=== PATIENT | female | born 1975 | race Two or more races ===

== ENCOUNTER 2020-04-22 11:28 | Emergency (ER) | payer OTHER, SELFPAY ==
[2020-04-22 11:37] VITALS: BP 137/83; PULSE 74; RESP 17; TEMP 37.2; O2SAT 96; BMI 35.2
--- NOTE | 2020-04-22 11:55 | XR_ITS ---
EXAMINATION: XR FOREARM, RIGHT CLINICAL INFORMATION: Pain and swelling COMPARISON: None TECHNIQUE: AP and lateral views of the right forearm were obtained. FINDINGS: There is no fracture or dislocation or destructive process. The bony mineralization appears normal. There is no periostitis. Lateral view shows no elbow capsular effusion. The elbow joint and carpus shows no no narrowing or erosive change. There is no gas tracking in the soft tissues. XR/XR forearm RT 2V IMPRESSION: Normal right forearm.
--- NOTE | 2020-04-22 11:57 | PC.NURSE ---
20 ML'S SEROUS SANGIOUNUS FLUID DRAINED BY N.P TO THE RIGHT LOWER ARM CYST.
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
[2020-04-22 12:10] LABS: MANUAL DIFF FLAG NO
[2020-04-22] MEDS: oxyCODONE HCl Immed Release 5 MG TABLET PO (12:13)
[2020-04-22] MEDS: Amoxicillin/Potassium Clav 875 MG TABLET PO (12:14)
[2020-04-22 12:22] LABS: Basophils Absolute Auto 0.1 X10*3/uL (0.0-0.2); Basophils Percent Auto 0.8 % (0-2); Eosinophils Absolute Auto 0.1 X10*3/uL (0.0-0.4); Eosinophils Percent Auto 1.8 % (0-4); Hematocrit 39.7 % (37-47); Hemoglobin 12.1 g/dl (12.0-16.0); Imm Gran Abs Auto 0.02 X10*3/uL (0.00-0.03); Imm Gran Pct Auto 0.3 % (0.0-0.4); Lymphocytes Percent Auto 25.9 % (20-40); Mean Corpuscular HGB Conc 30.5 g/dl (31.0-35.0); Mean Corpuscular Volume 78.8 fL (80-98); Mean Platelet Volume 8.9 fL (9.4-12.3); Monocytes Absolute Auto 0.5 X10*3/uL (0.1-1.2); Monocytes Percent Auto 6.4 % (2-11); Neutrophils Absolute Auto 5.1 X10*3/uL (2.0-8.3); Neutrophils Percent Auto 64.8 % (45-73); Platelet Count 420 X10*3/uL (160-400); Red Blood Count 5.04 X10*6/uL (4.20-5.50); Red Cell Distribution Width 19.1 % (11.0-16.0); White Blood Count 7.8 X10*3/uL (4.8-10.8)
[2020-04-22 12:44] LABS: Alanine Aminotransferase 25 U/L (0-31); Albumin Level 4.4 g/dL (3.5-5.0); Alkaline Phosphatase 88 U/L (39-117); Amylase 25 U/L (28-100); Anion Gap 12 (12-20); Aspartate Amino Transferase 22 U/L (5-31); Bilirubin Direct < 0.2 mg/dL (0.0-0.5); Bilirubin Total 0.3 mg/dL (0.0-1.0); Blood Urea Nitrogen 10 mg/dL (9-16); Calcium 9.1 mg/dL (8.4-10.2); Carbon Dioxide 24 mmol/L (22-29); Chloride 105 mmol/L (96-108); Creatinine Clr Calc Pharmacy 111.4; Estimated Glomerular Filt Rate > 60; Glucose Random 88 mg/dL (60-115); Lipase 12 U/L (8-78); Potassium 4.3 mmol/l (3.3-5.1); Sodium 137 mmol/L (135-145); Total Protein 7.8 g/dL (6.5-8.0)
[2020-04-22 12:45] LABS: Appearance Urine TURBID; Glucose Urine UA NEG (NEG); PH 5.5 (5.0-8.0); Urine Blood 3+ (NEG)
[2020-04-22 12:46] LABS: Leukocyte Esterase Urine NEG (NEG); Nitrite Urine NEG (NEG); Specific Gravity - Urine > 1.030 (1.005-1.025); Urine Ketones NEG (NEG); Urine Protein 2+ MG/DL (NEG-TRACE)
[2020-04-22 12:47] LABS: Color Urine RED; UPreg QC Valid YES; Urine Pregnancy NEGATIVE (NEGATIVE)
[2020-04-22 13:16] LABS: RBC Urine TNTC /HPF (0); Squamous Epithelial Cell Urine 1+ /LPF
[2020-04-23 04:36] LABS: HBS Num1 14.99 mIU/mL (0-7.99); HBc Num1 0.06 S/CO (0.00-0.79); HBsAGNum1 0.19 S/CO (0.00-0.99); HIV AB/AG Nonreactive (Nonreactive); HIV Num 1 0.06 S/CO (0.00-0.99); Hepatitis B Core Antibody Nonreactive (Nonreactive); Hepatitis B Surface Antigen Negative (Negative); ~Hepatitis B Surface Antibody REACTIVE (Nonreactive)
[2020-04-23 04:42] LABS: ~HepC Num1 0.11 S/CO (0.00-0.79); ~Hepatitis C Antibody Nonreactive (Nonreactive)
== END 2020-04-22 13:34 | disposition home or self-care (01) ==
PROVIDERS: Nurse Practitioner Primary Care; Emergency Provider Emergency Medicine; PCP Internal Medicine
DX: L02.413 Cutaneous abscess of right upper limb (principal); S40.811A Abrasion of right upper arm, initial encounter; M79.601 Pain in right arm
CPT/HCPCS: 10060; 36415; 73090; 80048; 80076; 81001; 81025; 82150; 83690; 85025; 86704; 86706; 86803; 87340; 87389; 90471; 90715; 99283; 99284

== ENCOUNTER 2020-04-23 19:41 | Emergency (ER) | payer OTHER, SELFPAY ==
[2020-04-23 19:55] VITALS: BP 140/97; PULSE 80; RESP 16; TEMP 36.9; O2SAT 98; BMI 35.2
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
[2020-04-23] MEDS: Lidocaine HCl 1 % MPF 5 ML VIAL SUBCUT (21:01)
== END 2020-04-23 21:32 | disposition home or self-care (01) ==
PROVIDERS: Emergency Provider Emergency Medicine; PCP Internal Medicine
DX: L02.413 Cutaneous abscess of right upper limb (principal)
CPT/HCPCS: 10060; 99284

== ENCOUNTER 2020-04-25 17:12 | Emergency (ER) | payer OTHER, SELFPAY ==
[2020-04-25 17:15] VITALS: BP 124/86; PULSE 66; RESP 19; TEMP 37; O2SAT 99; BMI 35.2
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
== END 2020-04-25 19:22 | disposition home or self-care (01) ==
PROVIDERS: Emergency Provider Emergency Medicine; PCP Internal Medicine
DX: Z48.00 Encounter for change or removal of nonsurgical wound dressing (principal); M79.631 Pain in right forearm; Z79.899 Other long term (current) drug therapy
CPT/HCPCS: 99284

== ENCOUNTER 2020-04-27 17:00 | Emergency (ER) | payer OTHER, SELFPAY ==
[2020-04-27 17:26] VITALS: BP 128/72; PULSE 89; RESP 16; TEMP 36.9; O2SAT 100; BMI 35.2
--- NOTE | 2020-04-27 17:45 | ED.RECABL ---
HPI - Recheck/Abnormal Lab/Rx General Chief Complaint: Recheck/Abnormal Lab/Rx Stated Complaint: wound check Time Seen by Provider: 04/27/20 17:32 Source: patient Mode of arrival: ambulatory Limitations: no limitations History of Present Illness HPI narrative: hears instructed for right volar forearm abscess check/packing removal. Offers no complaints. States she has been taking her antibiotics. Her swelling has significantly reduced essentially no swelling. Pain minimal only itchy on the site of the tape. No redness. No pain with movement of the hand. MD complaint: wound re-check ( / packing removal) Initial visit (ago): day(s) Initial visit for: abscess Symptoms since prior visit: improved Context: planned re-check Associated symptoms: none Treatments prior to arrival: heat therapy and dressings Related Data Previous Rx's Medication Instructions Recorded amoxicillin-pot clavulanate 1 tab PO Q12H 10 Days #20 tab 04/22/20 [Augmentin] cephalexin [Keflex] 500 mg PO Q8H 7 Days #21 cap 04/23/20 doxycycline monohydrate 100 mg PO BID 10 Days #20 cap 04/23/20 oxycodone 5 mg PO BID PRN #10 tab 04/23/20 Allergies Allergy/AdvReac Type Severity Reaction Status Date / Time SEAFOOD Allergy Unknown UNKNOWN Uncoded 04/27/20 17:18 Review of Systems Review of Systems: Constitutional: No Weight loss, No Fever, No Chills, No Night Sweats, No Fatigue, No Malaise ENT/Mouth: No Hearing loss, No Ear Pain, No Nasal Congestion, No Sinus Pain, No Hoarseness, No sore throat, No Rhinorrhea, No Swallowing Difficulty Eyes: No Eye Pain, No Swelling, No Redness, No Foreign Body, No Discharge, No Vision Changes Cardiovascular: No Chest Pain, No SOB, No Dyspnea on Exertion, No Orthopnea, No Edema, No Palpitations Respiratory: No Cough, No Sputum, No Wheezing, No Smoke Exposure, No Dyspnea Musculoskeletal: No joint pain, No Myalgias, No Joint Swelling Skin: No Skin Lesions, No rash Heme/Lymph: No Bruising, No Bleeding,No Lymphadenopathy Endocrine: No Polyuria, No Polydipsia, No Temperature Intolerance Yes all other systems are reviewed and are negative [facility] Past Medical History Attestation statement: The following information was validated with the patient. Medical History (Updated 04/27/20 @ 17:50 by Miguel Ángel Christensen NP) Asthma Social History Social History Smoking Status: Never smoker Advance Directives: No Advance Directives Information Provided: Yes Physical Exam Vital Signs: Vital Signs: Vital Signs Temp Pulse Resp BP Pulse Ox 04/27/20 17:26 98.4 F 89 16 128/72 100 Body Mass Index 35.2 Packing removed no further induration /expressible discharge. No need for further packing. Site appears to be healing well as noted below. Full range of motion. She is on Keflex/doxycycline she will complete the course of this. No need for further return to emergency room without complications will go with her primary care doctor. She verbalized standing/ agreeable plan. Discharge Plan Discharge Clinical Impression: Encounter for wound re-check Patient Disposition: Home, Self-Care Instructions: Abscess Follow-up (ED) Additional Instructions: the packing from the right forearm was removed Site appears to be healing well no further expressible discharge Home care as instructed Keep site clean and dry may wash with soap and water Take your antibiotic as prescribed Return if any concerns or symptoms otherwise follow up with primary care doctor in the next 3-7 days Thank you Prescriptions: No Action amoxicillin-pot clavulanate [Augmentin] 875-125 mg tablet 1 tab PO Q12H 10 Days Qty: 20 RF: 0 doxycycline monohydrate 100 mg capsule 100 mg PO BID 10 Days Qty: 20 RF: 0 cephalexin [Keflex] 500 mg capsule 500 mg PO Q8H 7 Days Qty: 21 RF: 0 oxycodone 5 mg tablet 5 mg PO BID PRN (Reason: pain) Qty: 10 RF: 0 Referrals: Xiomara Durham MD [Primary Care Provider] - 5 days Interventions: ED Discharge Assessment Last Done: 04/27/20 18:02 Discharge Date/Time: 04/27/20 18:03
[2020-04-27] MEDS: Ibuprofen 600 MG TABLET PO (18:01)
== END 2020-04-27 18:03 | disposition home or self-care (01) ==
PROVIDERS: Emergency Provider Internal Medicine; PCP Internal Medicine
DX: L02.413 Cutaneous abscess of right upper limb (principal); M79.631 Pain in right forearm; Z48.00 Encounter for change or removal of nonsurgical wound dressing; Z79.899 Other long term (current) drug therapy
CPT/HCPCS: 99283

== ENCOUNTER 2020-05-29 19:22 | Emergency (ER) | payer OTHER, SELFPAY ==
--- NOTE | 2020-05-29 20:05 | ECG_ITS ---
Test Reason : CHEST PAIN SOB Blood Pressure : / mmHG Vent. Rate : 083 BPM Atrial Rate : 083 BPM P-R Int : 140 ms QRS Dur : 092 ms QT Int : 396 ms P-R-T Axes : 045 -04 022 degrees QTc Int : 465 ms Normal sinus rhythm Left axis deviation Otherwise normal ECG When compared with ECG of 02-MAY-2019 16:23, No significant change was found Referred By: Generic ED Physician Electronically Signed By:CECILE MALOLY MD
--- NOTE | 2020-05-29 20:05 | XR_ITS ---
EXAMINATION: XR CHEST CLINICAL INFORMATION: Chest pain COMPARISON: Prior chest October 2016 TECHNIQUE: Frontal view of the chest was obtained. FINDINGS: No significant abnormality is noted involving the heart, lungs, mediastinum, bony thorax or soft tissues. XR/XR chest 1V IMPRESSION: Unremarkable examination.
[2020-05-29 20:06] VITALS: BP 133/91; PULSE 80; RESP 20; TEMP 37.6; O2SAT 99; BMI 35.7
[2020-05-29 20:12] VITALS: PULSE 79
[2020-05-29 20:23] LABS: Basophils Absolute Auto 0.1 X10*3/uL (0.0-0.2); Basophils Percent Auto 0.6 % (0-2); Eosinophils Absolute Auto 0.2 X10*3/uL (0.0-0.4); Eosinophils Percent Auto 1.6 % (0-4); Hematocrit 35.7 % (37-47); Hemoglobin 11.2 g/dl (12.0-16.0); Imm Gran Abs Auto 0.03 X10*3/uL (0.00-0.03); Imm Gran Pct Auto 0.3 % (0.0-0.4); Lymphocytes Absolute Auto 2.7 X10*3/uL (1.2-4.9); Lymphocytes Percent Auto 29.1 % (20-40); MANUAL DIFF FLAG NO; Mean Corpuscular HGB Conc 31.4 g/dl (31.0-35.0); Mean Corpuscular Hemoglobin 24.1 pg (27.0-33.0); Mean Corpuscular Volume 76.8 fL (80-98); Mean Platelet Volume 8.6 fL (9.4-12.3); Monocytes Absolute Auto 0.7 X10*3/uL (0.1-1.2); Monocytes Percent Auto 7.6 % (2-11); Neutrophils Absolute Auto 5.7 X10*3/uL (2.0-8.3); Neutrophils Percent Auto 60.8 % (45-73); Platelet Count 427 X10*3/uL (160-400); Red Blood Count 4.65 X10*6/uL (4.20-5.50); Red Cell Distribution Width 17.8 % (11.0-16.0); White Blood Count 9.4 X10*3/uL (4.8-10.8)
[2020-05-29 21:06] LABS: Anion Gap 17 (12-20); Blood Urea Nitrogen 11 mg/dL (9-16); Calcium 8.8 mg/dL (8.4-10.2); Carbon Dioxide 20 mmol/L (22-29); Chloride 107 mmol/L (96-108); Creatinine Clr Calc Pharmacy 83.3; Estimated Glomerular Filt Rate > 60; Glucose Random 97 mg/dL (60-115); Potassium 4.5 mmol/l (3.3-5.1); Sodium 139 mmol/L (135-145)
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
[2020-05-29 21:13] LABS: Troponin-I High Sensitivity < 3.5 ng/L (<3.5-17.0)
[2020-05-29 21:42] LABS: Prothrombin Time 11.9 SEC (10.8-13.0)
[2020-05-29 21:45] LABS: D Dimer 273 NG/ML; Partial Thromboplastin Time 30.5 SEC (24.1-38.0)
[2020-05-29 22:00] VITALS: BP 134/87; PULSE 87; RESP 15; TEMP 37.2; O2SAT 98
[2020-05-29] MEDS: Albuterol Sulfate 90 MCG 8 GM INHALER 4 PUFF INHALE (22:11)
[2020-05-29 22:13] VITALS: PULSE 88; O2SAT 98
== END 2020-05-29 23:13 | disposition home or self-care (01) ==
PROVIDERS: Emergency Provider Student in an Organized Health Care Education/Training Program
DX: J45.901 Unspecified asthma with (acute) exacerbation (principal); R06.00 Dyspnea, unspecified; Z79.899 Other long term (current) drug therapy
CPT/HCPCS: 36415; 71045; 80048; 84484; 85025; 85379; 85610; 85730; 93005; 94640; 99284; 99285

== ENCOUNTER 2020-07-01 14:59 | Emergency (ER) | payer OTHER, SELFPAY ==
[2020-07-01 15:05] VITALS: BP 142/92; PULSE 98; RESP 18; TEMP 37.4; O2SAT 97; BMI 34.7
--- NOTE | 2020-07-01 15:51 | XR_ITS ---
EXAMINATION: XR CHEST CLINICAL INFORMATION: Cough. COMPARISON: None TECHNIQUE: Frontal view of the chest was obtained. FINDINGS: No significant abnormality is noted involving the heart, lungs, mediastinum, bony thorax or soft tissues. XR/XR chest 1V IMPRESSION: Unremarkable chest examination.
[2020-07-01 16:29] VITALS: BP 142/92; PULSE 98; RESP 18; TEMP 37.4; O2SAT 97
[2020-07-01 16:53] LABS: Influenza A PCR NEGATIVE (Negative); Influenza B PCR NEGATIVE (Negative); Resp Syncy Virus RNA Qual PCR NEGATIVE (Negative); SARS COV2 PCR INHOUSE POSITIVE (Negative)
--- NOTE | 2020-07-01 17:12 | ED_ITS ---
HPI - URI/Sore Throat General Chief Complaint: Upper Respiratory Symptoms Stated Complaint: covid symptoms Time Seen by Provider: 07/01/20 15:51 Source: patient Mode of arrival: ambulatory Limitations: no limitations History of Present Illness HPI Narrative: States body aches, myalgias with cough for the past 5 days MD elicited complaint: cough Pertinent past history: asthma Severity: moderate Able to tolerate fluids by mouth: Yes Relieving factors: nothing Treatments prior to arrival: none Related Data Home Medications Medication Instructions Recorded Confirmed albuterol sulfate INHALATION 05/29/20 fluticasone propionate [Flovent INHALATION 05/29/20 05/29/20 HFA] Previous Rx's Medication Instructions Recorded prednisone 40 mg PO DAILY 4 Days #8 tab 05/29/20 azithromycin [Zithromax Z-Jimmy] 250 mg PO DAILY 5 Days #6 tab 07/01/20 prednisone 40 mg PO DAILY 5 Days #10 tab 07/01/20 Allergies Allergy/AdvReac Type Severity Reaction Status Date / Time SEAFOOD Allergy Intermediate UNKNOWN Uncoded 07/01/20 15:12 Review of Systems Review of Systems: Constitutional: No Weight loss, No Fever, + Chills, No Night Sweats, No Fatigue, No Malaise ENT/Mouth: No Hearing loss, No Ear Pain, + Nasal Congestion, No Sinus Pain, No Hoarseness, No sore throat, No Rhinorrhea, No Swallowing Difficulty Eyes: No Eye Pain, No Swelling, No Redness, No Foreign Body, No Discharge, No Vision Changes Cardiovascular: No Chest Pain, No SOB, No Dyspnea on Exertion, No Orthopnea, No Edema, No Palpitations Respiratory: + Cough, No Sputum, No Wheezing, No Smoke Exposure, No Dyspnea Gastrointestinal: No Nausea, No Vomiting, No Diarrhea, No Constipation, No abdominal Pain, No Hematochezia, No Melena Genitourinary: no irregular bleeding, No Dysuria, No Urinary Frequency, No Hematuria, No Urinary Incontinence, No Urgency, No Flank Pain, No Urinary Flow Changes, No Hesitancy Musculoskeletal: No joint pain, + Myalgias, No Joint Swelling Skin: No Skin Lesions, No rash Neuro: No Weakness, No Numbness, No Paresthesias, No Loss of Consciousness, No Dizziness, No Headache Psych: No Social Issues Heme/Lymph: No Bruising, No Bleeding,No Lymphadenopathy Endocrine: No Polyuria, No Polydipsia, No Temperature Intolerance Yes all other systems are reviewed and are negative [facility] Past Medical History Medical History Asthma Social History Social History Alcohol intake: current Alcohol intake frequency: holidays/special occasions only Alcohol type: beer and wine Smoking Status: Never smoker Smoked in Last 30 Days: No Use of substances other than those prescribed or required for medical reasons: No Advance Directives: No Advance Directives Information Provided: No Physical Exam Vital Signs: Vital Signs: Last Vital Signs Temp 99.3 F 07/01/20 16:29 Pulse 98 07/01/20 16:29 Resp 18 07/01/20 16:29 BP 142/92 H 07/01/20 16:29 Pulse Ox 97 07/01/20 16:29 Body Mass Index 34.7 Reviewed Const: General: cooperative and healthy appearing; No acute distress or intoxicated appearing Nutritional Appearance: average body habitus Orientation/consciousness: patient oriented x3 HENMT: Head: Yes normal to inspection Ears: hearing grossly normal bilaterally Eyes: General: appearance normal, both eyes and all related structures Visual Crespo: normal visual crespo by confrontation Neck: Neck: Yes normal visual inspection, No positive Brudzinski's sign, No positive Kernig's sign and No tender Thyroid: Thyroid normal Chest: Chest palpation & inspection: normal inspection of the chest Resp: Effort & Inspection: normal respiratory effort Auscultation: clear to auscultation bilaterally Cardio: Jugular venous distension: no JVD Rhythm: regular rhythm Heart sounds: S1 normal heart sound present and S2 normal heart sound present GI: Inspection: Yes normal to inspection Percussion: Yes normal to percussion Auscultation: normal bowel sounds : General: Yes no CVA tenderness Back/Spine/Pelvis: Back: no CVA tenderness Skin: General skin exam: no rashes or lesions noted Neuro: General: patient oriented x3 Extrem: General: Yes normal to inspection MDM - URI/Sore Throat Differential Diagnosis Differential diagnosis: Likely upper respiratory infection, viral infection, bronchitis and influenza; Unlikely croup, otitis media, sinusitis and pharyngitis Medical Records Attestation: I reviewed the patient's medical records. Lab Data Attestation: I reviewed the patient's lab results. Labs: Lab Results 07/01/20 Range/Units 16:01 Coronavirus (PCR) POSITIVE A (Negative) Influenza Type A (PCR) NEGATIVE (Negative) Influenza Type B (PCR) NEGATIVE (Negative) RSV RNA Qual (PCR) NEGATIVE (Negative) Imaging Data Chest x-ray: Radiologist's impression: [address] [address] XRay Report Signed Patient: Eugenia VickersMR#: [id number] : 1975Acct:[id number] Age/Sex: 44 / FADM Date: 07/01/20 Loc: .ED Attending Dr: Ordering Physician: Miguel Ángel Christensen NP Date of Service: 07/01/20 Procedure(s): XR chest 1V Accession Number(s): [id number] cc: Miguel Ángel Christensen [employer]~ EXAMINATION: XR CHEST CLINICAL INFORMATION: Cough. COMPARISON: None TECHNIQUE: Frontal view of the chest was obtained. FINDINGS: No significant abnormality is noted involving the heart, lungs, mediastinum, bony thorax or soft tissues. XR/XR chest 1V IMPRESSION: Unremarkable chest examination. Dictated By:RAMSES MURRAY MD Signed By:<Electronically signed by RAMSES MURRAY MD in OV>07/01/20 1622 DD/ 1551 TD/TT: Lab Clerk: [facility] Discharge Plan Discharge Clinical Impression: Upper respiratory infection, COVID-19 Patient Disposition: Home, Self-Care Instructions: COVID-19 (Coronavirus Disease 2019) (ED) Additional Instructions: Self-isolation/social distancing for the next 14 days/ and at least 3 days symptom free Follow state/cdc guidelines Supportive care discussed Take medication prescribed Return if any concerns or worsening symptoms Otherwise follow up with 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
== END 2020-07-01 17:38 | disposition home or self-care (01) ==
PROVIDERS: Nurse Practitioner Primary Care; Emergency Provider Emergency Medicine; PCP Internal Medicine
DX: U07.1 COVID-19 (principal); J06.9 Acute upper respiratory infection, unspecified; R05 Cough; M79.10 Myalgia, unspecified site; J45.909 Unspecified asthma, uncomplicated; Z79.899 Other long term (current) drug therapy
CPT/HCPCS: 0241U; 71045; 99283; 99285

== ENCOUNTER 2020-07-10 18:06 | Emergency (ER) | payer OTHER, SELFPAY ==
--- NOTE | 2020-07-10 19:34 | PC.NURSE ---
x2 call for triage- no answer
== END 2020-07-10 19:47 | disposition left against medical advice (07) ==
LOC: HO.ED 19:39
PROVIDERS: Emergency Provider Emergency Medicine
DX: R06.02 Shortness of breath (principal); Z86.16 Personal history of COVID-19

== ENCOUNTER 2020-08-12 10:49 | Emergency (ER) | payer OTHER, SELFPAY ==
--- NOTE | ~2020-08-12 | XR_ITS ---
EXAMINATION: XR KNEE, RIGHT CLINICAL INFORMATION: Pain. COMPARISON: None TECHNIQUE: Four views of the right knee. FINDINGS: Bones and soft tissues are normal. No fracture or joint effusion. Alignment is anatomic. Joint spaces are well maintained. No abnormal soft tissue calcification. XR/XR knee RT 4V IMPRESSION: Unremarkable right knee exam.
[2020-08-12 10:55] VITALS: BP 138/80; PULSE 79; RESP 18; TEMP 36.6; O2SAT 100; BMI 35.2
[2020-08-12] MEDS: Ibuprofen 800 MG TABLET PO (11:49)
--- NOTE | 2020-08-12 12:16 | ED_ITS ---
HPI - Extremity Injury (Lower) General Chief Complaint: Extremity Injury, Lower Stated Complaint: R KNEE INJ Time Seen by Provider: 08/12/20 12:32 Source: patient Mode of arrival: ambulatory Limitations: no limitations History of Present Illness HPI Narrative: Patient presents to ED for right knee pain. Patient states she fell onto her right knee and twisted it last week and has pain medial side of her knee. Patient denies hitting head or loss of consciousness. Patient denies pain elsewhere in the body Related Data Home Medications Medication Instructions Recorded Confirmed albuterol sulfate INHALATION 05/29/20 fluticasone propionate [Flovent INHALATION 05/29/20 05/29/20 HFA] Previous Rx's Medication Instructions Recorded prednisone 40 mg PO DAILY 4 Days #8 tab 05/29/20 azithromycin [Zithromax Z-Jimmy] 250 mg PO DAILY 5 Days #6 tab 07/01/20 prednisone 40 mg PO DAILY 5 Days #10 tab 07/01/20 cyclobenzaprine 10 mg PO TID PRN #18 tab 08/12/20 naproxen 500 mg PO BID PRN #20 tab 08/12/20 Allergies Allergy/AdvReac Type Severity Reaction Status Date / Time SEAFOOD Allergy Intermediate UNKNOWN Uncoded 07/01/20 15:12 Review of Systems Review of Systems: Yes all other systems are reviewed and are negative Constitutional: Constitutional: Reports as per HPI and Reports no additional constitutional complaints Eyes: Eyes: Reports as per HPI and Reports no additional eye complaints ENT: Reports system reviewed and no additional complaints, except as documented and Reports as per HPI Cardiovascular: Cardiovascular: Reports as per HPI and Reports no additional cardiovascular complaints Respiratory: Respiratory: Reports as per HPI and Reports no additional respiratory complaints Gastrointestinal: Gastrointestinal: Reports as per HPI and Reports no additional gastrointestinal complaints Genitourinary: Genitourinary: Reports no additional female genitourinary complaints and Reports as per HPI Musculoskeletal: Musculoskeletal: Reports no additional musculoskeletal complaints and Reports as per HPI Comments: Right knee Neurologic: Reports system reviewed and no additional complaints, except as documented and Reports as per HPI Psychiatric: Psychiatric: Reports no additional psychiatric complaints and Reports as per HPI [facility] Past Medical History Medical History Asthma Social History Social History Alcohol intake: current Alcohol intake frequency: holidays/special occasions only Alcohol type: beer and wine Smoking Status: Never smoker Advance Directives: No Advance Directives Information Provided: No Physical Exam Vital Signs: Vital Signs: Last Vital Signs Temp 97.8 F 08/12/20 10:55 Pulse 79 08/12/20 10:55 Resp 18 08/12/20 10:55 BP 138/80 08/12/20 10:55 Pulse Ox 100 08/12/20 10:55 Body Mass Index 35.2 Const: General: cooperative, healthy appearing, comfortable, no acute distress, well developed, alert, awake and Physically active Orientation/consciousness: patient oriented x3 HENMT: Head: Yes normal to inspection, Yes No palpable skull fracture present, Yes normocephalic, Yes atraumatic and No abrasion Eyes: General: appearance normal, both eyes and all related structures Neck: Neck: Yes normal visual inspection, Yes full ROM, Yes no lymphadenopathy, Yes no meningeal signs, Yes trachea midline, Yes supple and No tender Chest: Chest palpation & inspection: normal inspection of the chest and normal palpation of entire chest wall Resp: Effort & Inspection: normal respiratory effort and able to speak in complete sentences Auscultation: clear to auscultation bilaterally Cardio: Jugular venous distension: no JVD Heart sounds: S1 normal heart sound present and S2 normal heart sound present GI: Inspection: Yes normal to inspection and No abdominal wall ecchymosis Palpation (GI): Soft to palpation, not firm, nontender, no guarding and not rigid : General: No CVA tenderness and Yes no CVA tenderness Back/Spine/Pelvis: Back: no CVA tenderness, No CVA tenderness and No back tenderness Skin: General skin exam: no rashes or lesions noted and elasticity normal Neuro: General: patient oriented x3, no meningeal signs and CN's II-XI intact bilaterally Cranial nerves: Yes CN's II-XII intact bilaterally Extrem: Other: Right lower extremity: Positive for medial tenderness on the right knee. Negative any knee swelling, redness, deformity, elasticity. Rest of right lower extremity negative for any swelling, redness, ecchymosis, deformity, knee, warmth, or bluish discoloration. Patient's lower extremity neural, vascular, motor exam intact. Left lower extremity is normal and vascular, motor, and neuro exam is intact. Psych: Appearance: grossly normal, well kempt and not disheveled Course Course Course Narrative: Patient will get a right knee x-ray. Reevaluation(s) Reevaluation #1: Right knee x-ray negative for fracture. Likely patient has a knee sprain. Patient informed persistently having pain in right knee she she will need MRI but from her PCP to rule out any ligament/meniscus tear. Time: 12:27 MDM - Extremity Injury (Lower) MDM Narrative Medical decision making narrative: Knee sprain Discharge Plan Discharge Clinical Impression: Right knee sprain Patient Disposition: Home, Self-Care Instructions: Knee Sprain (ED) Additional Instructions: Return to the ED immediately for worsening right knee pain, swelling, redness, inability to bend knee, lower extremity swelling, calf pain, chest pain, shortness of breath, bluish discoloration of toes, cold lower extremity, or any other concerning symptoms. Prescriptions: New naproxen 500 mg tablet 500 mg PO BID PRN (Reason: pain) Qty: 20 RF: 0 cyclobenzaprine 10 mg tablet 10 mg PO TID PRN (Reason: pain) Qty: 18 RF: 0 No Action albuterol sulfate 90 mcg/actuation HFA aerosol inhaler inhalation RF: 0 Flovent HFA 110 mcg/actuation HFA aerosol inhaler inhalation RF: 0 prednisone 20 mg tablet 40 mg PO DAILY 4 Days Qty: 8 RF: 0 prednisone 20 mg tablet 40 mg PO DAILY 5 Days Qty: 10 RF: 0 azithromycin [Zithromax Z-Jimmy] 250 mg tablet 250 mg PO DAILY 5 Days Qty: 6 RF: 0 Referrals: Xiomara Durham MD [Primary Care Provider] - 2 days (Knee sprain. If pain continues recommend MRI to rule out ligament or meniscus tear) Interventions: ED Discharge Assessment Last Done: 08/12/20 12:40 Discharge Date/Time: 08/12/20 12:40 Print Language: Jordanian
== END 2020-08-12 12:40 | disposition home or self-care (01) ==
PROVIDERS: Emergency Provider Internal Medicine; PCP Internal Medicine
DX: S83.91XA Sprain of unspecified site of right knee, initial encounter (principal); M25.561 Pain in right knee; X50.1XXA Overexertion from prolonged static or awkward postures, initial encounter; Y93.01 Activity, walking, marching and hiking; Y92.9 Unspecified place or not applicable; Y99.9 Unspecified external cause status; Z79.899 Other long term (current) drug therapy
CPT/HCPCS: 73564; 99283

== ENCOUNTER 2020-12-21 12:57 | Outpatient (REF) | payer OTHER, SELFPAY ==
[2020-12-21 23:59] LABS: CT PCR NOT DETECTED (Not Detect.); NG PCR NOT DETECTED (Not Detect.)
[2020-12-22 07:38] LABS: HIV AB/AG Nonreactive (Nonreactive); HIV Num 1 0.13 S/CO (0.00-0.99)
== END 2020-12-21 12:58 | disposition home or self-care (01) ==
LOC: HO.LAB 12:57
PROVIDERS: PCP Internal Medicine; Visit Provider Internal Medicine
DX: Z11.3 Encounter for screening for infections with a predominantly sexual mode of transmission (principal); Z11.4 Encounter for screening for human immunodeficiency virus [HIV]; F43.0 Acute stress reaction; G47.00 Insomnia, unspecified
CPT/HCPCS: 87389; 87491; 87591

== ENCOUNTER 2021-03-23 14:37 | Outpatient (REF) | payer OTHER, SELFPAY ==
[2021-03-23 15:51] LABS: MANUAL DIFF FLAG NO
[2021-03-23 15:56] LABS: Basophils Absolute Auto 0.1 X10*3/uL (0.0-0.2); Basophils Percent Auto 0.8 % (0-2); Eosinophils Absolute Auto 0.1 X10*3/uL (0.0-0.4); Eosinophils Percent Auto 1.1 % (0-4); Hematocrit 31.7 % (37-47); Hemoglobin 9.2 g/dl (12.0-16.0); Imm Gran Abs Auto 0.03 X10*3/uL (0.00-0.03); Imm Gran Pct Auto 0.4 % (0.0-0.4); Lymphocytes Absolute Auto 2.2 X10*3/uL (1.2-4.9); Lymphocytes Percent Auto 28.3 % (20-40); Mean Corpuscular Hemoglobin 23.1 pg (27.0-33.0); Mean Corpuscular Volume 79.4 fL (80-98); Mean Platelet Volume 8.9 fL (9.4-12.3); Monocytes Absolute Auto 0.5 X10*3/uL (0.1-1.2); Monocytes Percent Auto 6.8 % (2-11); Neutrophils Absolute Auto 4.9 X10*3/uL (2.0-8.3); Neutrophils Percent Auto 62.6 % (45-73); Platelet Count 504 X10*3/uL (160-400); Red Blood Count 3.99 X10*6/uL (4.20-5.50); Red Cell Distribution Width 21.3 % (11.0-16.0); White Blood Count 7.9 X10*3/uL (4.8-10.8)
[2021-03-23 16:19] LABS: Alanine Aminotransferase 36 U/L (0-31); Albumin Level 4.1 g/dL (3.5-5.0); Alkaline Phosphatase 87 U/L (39-117); Anion Gap 11 (12-20); Aspartate Amino Transferase 32 U/L (5-31); Bilirubin Total < 0.2 mg/dL (0.0-1.0); Blood Urea Nitrogen 10 mg/dL (9-16); Calcium 9.9 mg/dL (8.4-10.2); Carbon Dioxide 23 mmol/L (22-29); Chloride 108 mmol/L (96-108); Cholesterol 194 mg/dL; Estimated Glomerular Filt Rate > 60; Glucose Random 92 mg/dL (60-115); HDL Cholesterol 57 mg/dL; LDL Cholesterol Calculated 119 mg/dl; Potassium 4.2 mmol/L (3.3-5.1); Sodium 138 mmol/L (135-145); Total Protein 7.7 g/dL (6.5-8.0); Triglycerides 93 mg/dL
[2021-03-23 16:38] LABS: Thyroid Stimulating Hormone 0.53 uIU/mL (0.32-4.0)
[2021-03-24 09:54] LABS: CT PCR NOT DETECTED (Not Detect.); NG PCR NOT DETECTED (Not Detect.)
== END 2021-03-23 14:38 | disposition home or self-care (01) ==
LOC: HO.LAB 14:37
PROVIDERS: PCP Internal Medicine; Visit Provider Internal Medicine
DX: Z00.00 Encounter for general adult medical examination without abnormal findings (principal); Z11.3 Encounter for screening for infections with a predominantly sexual mode of transmission; N92.4 Excessive bleeding in the premenopausal period; N89.8 Other specified noninflammatory disorders of vagina
CPT/HCPCS: 80053; 80061; 84443; 85025; 87491; 87591

== ENCOUNTER 2022-01-11 15:14 | Outpatient (REF) | payer OTHER, SELFPAY ==
[2022-01-11 15:25] LABS: MANUAL DIFF FLAG NO
[2022-01-11 15:40] LABS: Basophils Percent Auto 0.4 % (0-2); Eosinophils Absolute Auto 0.2 X10*3/uL (0.0-0.4); Eosinophils Percent Auto 1.5 % (0-4); Hematocrit 30.6 % (37.0-47.0); Hemoglobin 8.8 g/dl (12.0-16.0); Imm Gran Abs Auto 0.05 X10*3/uL (0.00-0.03); Imm Gran Pct Auto 0.5 % (0.0-0.4); Lymphocytes Absolute Auto 2.1 X10*3/uL (1.2-4.9); Lymphocytes Percent Auto 20.2 % (20-40); Mean Corpuscular HGB Conc 28.8 g/dl (31.0-35.0); Mean Corpuscular Hemoglobin 19.6 pg (27.0-33.0); Mean Corpuscular Volume 68.2 fL (80.0-98.0); Mean Platelet Volume 8.4 fL (9.4-12.3); Monocytes Absolute Auto 0.5 X10*3/uL (0.1-1.2); Monocytes Percent Auto 4.5 % (2-11); Neutrophils Absolute Auto 7.5 x10*3/uL (2.0-8.3); Neutrophils Percent Auto 72.9 % (45-73); Platelet Count 553 X10*3/uL (160-400); Red Blood Count 4.49 X10*6/uL (4.20-5.50); Red Cell Distribution Width 17.5 % (11.0-16.0); White Blood Count 10.3 X10*3/uL (4.8-10.8)
[2022-01-11 16:01] LABS: Alanine Aminotransferase 22 U/L (0-31); Albumin Level 4.3 g/dL (3.5-5.0); Alkaline Phosphatase 85 U/L (39-117); Anion Gap 14 (12-20); Aspartate Amino Transferase 19 U/L (5-31); Bilirubin Total 0.4 mg/dL (0.0-1.0); Blood Urea Nitrogen 14 mg/dL (9-16); Calcium 9.1 mg/dL (8.4-10.2); Carbon Dioxide 20 mmol/L (22-29); Chloride 107 mmol/L (96-108); Cholesterol 216 mg/dL; Estimated Glomerular Filt Rate > 60; Glucose Random 105 mg/dL (60-115); HDL Cholesterol 64 mg/dL; LDL Cholesterol Calculated 128 mg/dl; Potassium 4.3 mmol/L (3.3-5.1); Sodium 137 mmol/L (135-145); Total Protein 7.8 g/dL (6.5-8.0); Triglycerides 121 mg/dL
== END 2022-01-11 15:15 | disposition home or self-care (01) ==
LOC: HO.LAB 15:14
PROVIDERS: PCP Internal Medicine; Visit Provider Internal Medicine
DX: D50.8 Other iron deficiency anemias (principal); J30.89 Other allergic rhinitis; J45.20 Mild intermittent asthma, uncomplicated
CPT/HCPCS: 36415; 80053; 80061; 85025

== ENCOUNTER 2022-02-22 16:46 | Outpatient (REF) | payer OTHER, SELFPAY ==
[2022-02-22 17:09] LABS: MANUAL DIFF FLAG NO
[2022-02-22 17:38] LABS: Basophils Percent Auto 0.5 % (0-2); Hematocrit 38.4 % (37.0-47.0); Hemoglobin 11.3 g/dl (12.0-16.0); Imm Gran Abs Auto 0.02 X10*3/uL (0.00-0.03); Imm Gran Pct Auto 0.3 % (0.0-0.4); Lymphocytes Absolute Auto 1.1 X10*3/uL (1.2-4.9); Lymphocytes Percent Auto 18.9 % (20-40); Mean Corpuscular HGB Conc 29.4 g/dl (31.0-35.0); Mean Corpuscular Hemoglobin 21.8 pg (27.0-33.0); Mean Platelet Volume 8.5 fL (9.4-12.3); Monocytes Absolute Auto 0.3 X10*3/uL (0.1-1.2); Monocytes Percent Auto 4.3 % (2-11); Neutrophils Absolute Auto 4.4 x10*3/uL (2.0-8.3); Platelet Count 368 X10*3/uL (160-400); Red Blood Count 5.19 X10*6/uL (4.20-5.50); Red Cell Distribution Width 24.2 % (11.0-16.0); White Blood Count 5.8 X10*3/uL (4.8-10.8)
[2022-02-23 09:12] LABS: CT PCR NOT DETECTED (Not Detect.); NG PCR NOT DETECTED (Not Detect.)
== END 2022-02-22 16:47 | disposition home or self-care (01) ==
LOC: HO.LAB 16:46
PROVIDERS: PCP Internal Medicine; Visit Provider Internal Medicine
DX: Z11.3 Encounter for screening for infections with a predominantly sexual mode of transmission (principal); D50.8 Other iron deficiency anemias; J06.9 Acute upper respiratory infection, unspecified; R30.0 Dysuria
CPT/HCPCS: 85025; 87491; 87591

== ENCOUNTER 2022-06-12 08:50 | Emergency (ER) | payer OTHER, SELFPAY ==
[2022-06-12] VITALS (13 sets, daily range): BP systolic 120–162; BP diastolic 48–93; PULSE 68–85; RESP 13–20; TEMP 36.5–37; O2SAT 100; BMI 31.8
--- NOTE | ~2022-06-12 | US_ITS ---
EXAMINATION: US PELVIS CLINICAL INFORMATION: Vaginal bleeding COMPARISON: None TECHNIQUE: Ultrasound of the pelvis is performed using both transabdominal and transvaginal transducers along with Doppler. Transvaginal imaging is performed due to inadequate visualization transabdominally. FINDINGS: The uterus is 9.4 x 4.8 x 6.2 cm. Endometrial thickness is 1.5 cm characterized by mixed echogenicity. There is a focal echogenic focus measuring 7 x 4 x 6 mm which could represent a polyp. Differential would include endometrial small fibroid The right ovary is 2.5 x 1.7 x 2 cm. Volume 5 mL. Prominent small cyst or dominant follicle 1.7 x 1.5 cm. Left ovary is 3.3 x 3 x 3 cm. Volume 15.6 mL. Fairly simple appearing cyst measuring 3 x 2.9 cm is noted. The ovarian vascularity is within normal limits bilaterally. US/US pelvic and transvaginal IMPRESSION: Distal endometrial thickness 1.5 cm with mixed echogenicity and a focal echogenic lesion is isolated which does show some associated vascularity. This could represent a polyp versus other.. Gynecologic consultation is warranted.
--- OUTSIDE RECORDS SUMMARY | 2022-06-12 09:15 | XMS_ITS | Continuity of Care Document ---
:1975 Author Organization [facility] FRIT COATER Oncology Address [address] [place] [address]- Care Team Providers Name Role Phone Xiomara Durham MD Primary Care Physician [place] [facility] [place] - 02/19/20 [facility] FRIT COATER Oncology [address] [place] [address]- [facility] Allergies, Adverse Reactions, Alerts Substance Reaction Severity Status Seafood Shortness of breath Active Throat tightness Rash Medications albuterol CFC free 90 mcg/inh inhalation aerosol 1, puffs, Inhalation, Once, PRN, # 7 Gm, Refills 0, Maintenance, 11/08/16 15:57:49, Aerosol, Compound Start Date: 11/08/16 Status: OrderedAtivan 0.5 mg oral tablet 1 tablet = 0.5 mg, By Mouth, 3 times a day, PRN for anxiety, # 12 tablet, 0 Refills, Maintenance, 01/05/14 18:55:36, Tablet Start Date: 01/05/14 Status: OrderedClonazepam = 0.25 mg, By Mouth, 3 times a day, PRN Anxiety, 0 Refills, Maintenance, 11/08/16 15:55:38 Start Date: 11/08/16 Status: OrderedDiflucan 150 mg oral tablet 1 tablet = 150 mg, By Mouth, Once, # 1 tablet, 0 Refills, Soft Stop, 12/08/16 14:19:49 Start Date: 12/08/16 Status: OrderedDiflucan 150 mg oral tablet 1 tablet = 150 mg, By Mouth, Once, # 1 tablet, 0 Refills, Soft Stop, 01/13/20 11:23:00 EDT, Tablet, [id number], 158, cm, 01/12/20 15:26:00 EDT, Height, 92, kg, 01/12/20 15:26:00 EDT, Dry Weight Start Date: 01/13/20 Status: Orderedibuprofen 600 mg oral tablet 600 mg, 1, tablet, By Mouth, Every 6 hours, PRN, # 60 tablet, Refills 0, Tot. Refills 0, Maintenance, as needed for pain, 12/07/16 16:32:42, Route to Pharmacy Electronically, [id number], [facility]/pharmacy #[id number] Start Date: 12/07/16 Status: OrderedMotrin Tablet 600 mg, By Mouth, Every 8 hours, PRN, Maintenance, migraine from heavy bleeding, 05/06/13 23:39:16 Start Date: 05/06/13 Status: OrderedSertraline = 50 mg, By Mouth, Daily, 0 Refills, Maintenance, 11/08/16 15:56:10 Start Date: 11/08/16 Status: OrderedWomens Pack oral tablet 1 tablet, By Mouth, Daily, # 30 tablet, 0 Refills, Maintenance, 11/08/16 16:01:03, Tablet Start Date: 11/08/16 Status: Ordered Problem List Condition Effective Dates Status Health Status Informant Asthma(Confirmed) Active Cervicitis(Confirmed) Active Cervical dysplasia(Confirmed) Active Social History Social History Type Response Smoking Status Former smoker, quit more shannan n 30 days ago entered on: 12/26/19 Sex
--- OUTSIDE RECORDS SUMMARY | 2022-06-12 09:15 | XMS_ITS | Continuity of Care Document ---
:1975 Author Organization [facility] Address [address] [place] [address], [address] [place] [address]- Care Team Providers Name Role Phone Marva BUNN, Xiomara Garcia Primary Care Physician En[place] [facility] [place] [facility] [id number] Date(s): 06/14/21 - 07/14/21 [facility] [address] [place] [address], [address] [place] [id number] Attending Physician: Vale Sotelo Admitting Physician: AdmtrVale Referring Physician: AdmtrVale Allergies, Adverse Reactions, Alerts Substance Reaction Severity Status Seafood Shortness of breath Active Throat tightness Rash Medications albuterol CFC free 90 mcg/inh inhalation aerosol 1, puffs, Inhalation, Once, PRN, # 7 Gm, Refills 0, Maintenance, 11/08/16 15:57:49, Aerosol, Compound Start Date: 11/08/16 Status: Orderedibuprofen 600 mg oral tablet 600 mg, 1, tablet, By Mouth, Every 6 hours, PRN, # 60 tablet, Refills 0, Tot. Refills 0, Maintenance, as needed for pain, 12/07/16 16:32:42, Route to Pharmacy Electronically, [id number], [facility]/pharmacy #[id number] Start Date: 12/07/16 Status: OrderedMotrin Tablet 600 mg, By Mouth, Every 8 hours, PRN, Maintenance, migraine from heavy bleeding, 05/06/13 23:39:16 Start Date: 05/06/13 Status: OrderedProvera 10 mg oral tablet 10 mg, 1, tablet, By Mouth, 2 times a day, # 60 tablet, Refills 5, Tot. Refills 5, Maintenance, 06/14/21 16:21:00 EST, Route to Pharmacy Electronically, [facility]/pharmacy #[id number], Partial fill upon patient request if the prescription is for a schedule II opi... Start Date: 06/14/21 Status: Ordered Problem List Condition Effective Dates Status Health Status Informant Asthma(Confirmed) Active Cervicitis(Confirmed) Active Cervical dysplasia(Confirmed) Active Obese class I(Confirmed) Active Social History Social History Type Response Smoking Status Former smoker, quit more shannan n 30 days ago entered on: 12/26/19 Sex
--- OUTSIDE RECORDS SUMMARY | 2022-06-12 09:15 | XMS_ITS | Continuity of Care Document ---
:1975 Author Organization [facility] CAREER COUNSELOR Oncology Address [address] [place] [address]- Care Team Providers Name Role Phone Xiomara Durham MD Primary Care Physician Encounter [facility] Date(s): 12/29/19 - 01/28/20 [facility] CAREER COUNSELOR Oncology [address] [place] [address]- [facility] Allergies, Adverse Reactions, Alerts Substance Reaction Severity [...] pain, 12/07/16 16:32:42, Route to Pharmacy Electronically, [id number], [facility]/pharmacy #[id number] Start Date: 12/07/16 Status: OrderedMotrin Tablet 600 [...]
--- OUTSIDE RECORDS SUMMARY | 2022-06-12 09:16 | XMS_ITS | Continuity of Care Document ---
:1975 Author Organization [facility] MARKETING DATABASE COORDINATOR Oncology Address [address] [place] [address]- Care Team Providers Name Role Phone Xiomara Durham MD Primary Care Physician [place] [facility] [place]): [place]20 [place] 02/11/21 [facility] MARKETING DATABASE COORDINATOR Oncology [address] [place] [id number] Attending Physician: Georgia Solis MD Admitting Physician: Georgia Solis MD Referring Physician: Xiomara Durham MD Allergies, Adverse Reactions, Alerts Substance Reaction Severity [...] # 1 tablet, 0 Refills, Soft Stop, 02/27/20 16:03:00 EDT, Tablet, [facility]/pharmacy #207, 158, cm, 01/12/20 15:26:00 EDT, Height, 92, kg, 01/12/20 15:26:00 EDT, Dry Weight Start Date: 02/27/20 Status: Orderedibuprofen 600 mg oral tablet 600 mg, 1, tablet, By Mouth, Every 6 hours, PRN, # 60 tablet, Refills 0, Tot. Refills 0, Maintenance, as needed for pain, 12/07/16 16:32:42, Route to Pharmacy Electronically, [id number], [facility]/pharmacy #207 Start Date: 12/07/16 Status: OrderedmetroNIDAZOLE 0.75% topical gel 1 applicator, Vaginally, Daily at bedtime, # 45 Gm, 0 Refills, Maintenance, 02/27/20 15:32:00 EDT, [facility]/pharmacy #[id number], 1 applicator Vaginally Daily at bedtime,x5 days, 158, cm, 01/12/20 15:26:00 EDT, Height, 92, kg, 01/12/20 15:26:00 EDT, Dry Weight Start Date: 02/27/20 Stop Date: 03/03/20 Status: OrderedMotrin Tablet 600 mg, By Mouth, [...]
--- OUTSIDE RECORDS SUMMARY | 2022-06-12 09:16 | XMS_ITS | Continuity of Care Document ---
:1975 Author Organization [facility] ASSOCIATE PROFESSOR OF LIBRARY MEDIA Oncology Address [address] [place] [address]- Care Team Providers Name Role Phone Xiomara Durham MD Primary Care Physician [place] [facility] [place] 12/[place]20 - 03/09/21 [facility] ASSOCIATE PROFESSOR OF LIBRARY MEDIA Oncology [address] [place] [address]- Attending Physician: Georgia Solis MD Admitting Physician: [...] Refills, Soft Stop, 02/27/20 16:03:00 EDT, Tablet, [facility]/pharmacy #207, 158, cm, 01/12/20 15:26:00 EDT, Height, 92, kg, 01/12/20 15:26:00 EDT, Dry Weight Start Date: 02/27/20 Status: Orderedibuprofen 600 mg oral tablet 600 mg, 1, tablet, By Mouth, Every 6 hours, PRN, # 60 tablet, Refills 0, Tot. Refills 0, Maintenance, as needed for pain, 12/07/16 16:32:42, Route to Pharmacy Electronically, [id number], [facility]/pharmacy #207 Start Date: 12/07/16 Status: OrderedmetroNIDAZOLE 0.75% topical gel 1 applicator, Vaginally, Daily at bedtime, # 45 Gm, 0 Refills, Maintenance, 02/27/20 15:32:00 EDT, [facility]/pharmacy #[id number], 1 applicator Vaginally Daily at [...]
--- OUTSIDE RECORDS SUMMARY | 2022-06-12 09:16 | XMS_ITS | Continuity of Care Document ---
:1975 Author Organization [facility] SNAP ATTACHER Oncology Address [address] [place] [address]- Care Team Providers Name Role Phone Xiomara Durham MD Primary Care Physician [place] [facility] [place]20 - 02/19/20 [facility] SNAP ATTACHER Oncology [address] [place] [address]- [facility] Allergies, Adverse Reactions, Alerts Substance Reaction Severity [...] pain, 12/07/16 16:32:42, Route to Pharmacy Electronically, [id number], [facility]/pharmacy #[id number] Start Date: 12/07/16 Status: OrderedMotrin Tablet 600 [...]
--- OUTSIDE RECORDS SUMMARY | 2022-06-12 09:16 | XMS_ITS | Continuity of Care Document ---
:1975 Author Organization [facility] AUTO MECHANIC SUPERVISOR Oncology Address [address] [place] [address]- Care Team Providers Name Role Phone Xiomara Durham MD Primary Care Physician En[place] [facility] Date(s): 02/07/21 - 03/09/21 [facility] AUTO MECHANIC SUPERVISOR Oncology [address] [place] [id number] Allergies, Adverse Reactions, Alerts Substance Reaction Severity [...] Refills, Soft Stop, 02/27/20 16:03:00 EDT, Tablet, [id number], 158, cm, 01/12/20 15:26:00 EDT, Height, 92, kg, 01/12/20 15:26:00 EDT, Dry Weight Start Date: 02/27/20 Status: Orderedibuprofen 600 mg oral tablet 600 mg, 1, tablet, By Mouth, Every 6 hours, PRN, # 60 tablet, Refills 0, Tot. Refills 0, Maintenance, as needed for pain, 12/07/16 16:32:42, Route to Pharmacy Electronically, [id number], [facility]/pharmacy #207 Start Date: 12/07/16 Status: OrderedmetroNIDAZOLE 0.75% topical gel 1 applicator, Vaginally, Daily at bedtime, # 45 Gm, 0 Refills, Maintenance, 02/27/20 15:32:00 EDT, [facility]/pharmacy #207, 1 applicator Vaginally Daily at bedtime,x5 days, [...]
--- OUTSIDE RECORDS SUMMARY | 2022-06-12 09:16 | XMS_ITS | Continuity of Care Document ---
:1975 Author Organization [facility] OPTICAL GOODS WORKER Oncology Address [address] [place] [address]- Care Team Providers Name Role Phone Xiomara Durham MD Primary Care Physician [place] [facility] [place]): [place]15[place]19 - 01/28/20 [facility] OPTICAL GOODS WORKER Oncology [address] [place] [address]- [facility] Attending Physician: Georgia Solis MD Admitting Physician: [...] Soft Stop, 01/13/20 11:23:00 EDT, Tablet, [id number], 158, cm, 01/12/20 15:26:00 EDT, Height, 92, kg, 01/12/20 15:26:00 EDT, Dry Weight Start Date: 01/13/20 Status: Orderedibuprofen 600 mg oral tablet 600 mg, 1, tablet, By Mouth, Every 6 hours, PRN, # 60 tablet, Refills 0, Tot. Refills 0, Maintenance, as needed for pain, 12/07/16 16:32:42, Route to Pharmacy Electronically, [id number], [facility]/pharmacy #[id number] Start Date: 12/07/16 Status: OrderedMotrin Tablet 600 [...]
--- OUTSIDE RECORDS SUMMARY | 2022-06-12 09:16 | XMS_ITS | Continuity of Care Document ---
:1975 Author [facility] Address [address] [place] [address], [address] [place] [address]- Care Team Providers Name Role Phone Marva BUNN, Xiomara Garcia Primary Care Physician [place] [facility] [place]): 04/11/21 - 05/11/21 [facility] [address] [place] [address], [address] [place] [id number] Allergies, Adverse Reactions, Alerts Substance Reaction Severity [...] Refills, Soft Stop, 02/27/20 16:03:00 EDT, Tablet, [facility]/pharmacy #207, 158, cm, 01/12/20 15:26:00 EDT, Height, 92, kg, 01/12/20 15:26:00 EDT, Dry Weight Start Date: 02/27/20 Status: Orderedibuprofen 600 mg oral tablet 600 mg, 1, tablet, By Mouth, Every 6 hours, PRN, # 60 tablet, Refills 0, Tot. Refills 0, Maintenance, as needed for pain, 12/07/16 16:32:42, Route to Pharmacy Electronically, [id number], [facility]/pharmacy #207 Start Date: 12/07/16 Status: OrderedmetroNIDAZOLE 0.75% topical gel 1 applicator, Vaginally, Daily at bedtime, # 45 Gm, 0 Refills, Maintenance, 02/27/20 15:32:00 EDT, [facility]/pharmacy #[id number], 1 applicator Vaginally Daily at [...]
--- OUTSIDE RECORDS SUMMARY | 2022-06-12 09:16 | XMS_ITS | Continuity of Care Document ---
:1975 Author Organization [facility] TAPE RECORDER REPAIRER Oncology Address [address] [place] [address]- Care Team Providers Name Role Phone Marva BUNN, Xiomara Garcia Primary Care Physician [place] [facility] [place] 04/07/21 - 05/07/21 [facility] TAPE RECORDER REPAIRER Oncology [address] [place] [id number] Allergies, Adverse Reactions, Alerts Substance Reaction [...] pain, 12/07/16 16:32:42, Route to Pharmacy Electronically, [id number], [facility]/pharmacy #[id number] Start Date: 12/07/16 Status: OrderedmetroNIDAZOLE 0.75% topical gel 1 applicator, Vaginally, Daily at bedtime, # 45 Gm, 0 Refills, Maintenance, 02/27/20 15:32:00 EDT, [facility]/pharmacy #[id number], 1 applicator Vaginally Daily at bedtime,x5 days, [...]
--- OUTSIDE RECORDS SUMMARY | 2022-06-12 09:16 | XMS_ITS | Continuity of Care Document ---
:1975 Author Organization [facility] PLANT CLERK Oncology Address [address] [place] [address]- Care Team Providers Name Role Phone Xiomara Durham MD Primary Care Physician [place] [facility] [place] Date(s): 04/06/21 - 05/25/21 [facility] PLANT CLERK Oncology [address] [place] [id number] Attending Physician: Georgia Solis MD Admitting [...] Refills, Soft Stop, 02/27/20 16:03:00 EDT, Tablet, [facility]/pharmacy #207, 158, cm, 01/12/20 15:26:00 EDT, Height, 92, kg, 01/12/20 15:26:00 EDT, Dry Weight Start Date: 02/27/20 Status: Orderedibuprofen 600 mg oral tablet 600 mg, 1, tablet, By Mouth, Every 6 hours, PRN, # 60 tablet, Refills 0, Tot. Refills 0, Maintenance, as needed for pain, 12/07/16 16:32:42, Route to Pharmacy Electronically, [id number], [facility]/pharmacy #207 Start Date: 12/07/16 Status: OrderedmetroNIDAZOLE 0.75% topical gel 1 applicator, Vaginally, Daily at bedtime, # 45 Gm, 0 Refills, Maintenance, 02/27/20 15:32:00 EDT, [facility]/pharmacy #[id number], 1 applicator Vaginally Daily at bedtime,x5 [...]
--- OUTSIDE RECORDS SUMMARY | 2022-06-12 09:16 | XMS_ITS | Continuity of Care Document ---
:1975 Author Organization [facility] Address [address] [place] [address], [address] [place] [address]- Care Team Providers Name Role Phone Xiomara Durham MD Primary Care Physician [id number]): [facility]11[facility]21 - [facility]15[facility] [employer] [address] [place] [address], [address] [place] [address]- Attending Physician: Lora Linares MD Referring Physician: Xiomara Durham MD Allergies, [...] Refills, Soft Stop, 02/27/20 16:03:00 EDT, Tablet, [facility]/pharmacy #207, 158, cm, 01/12/20 15:26:00 EDT, Height, 92, kg, 01/12/20 15:26:00 EDT, Dry Weight Start Date: 02/27/20 Status: Orderedibuprofen 600 mg oral tablet 600 mg, 1, tablet, By Mouth, Every 6 hours, PRN, # 60 tablet, Refills 0, Tot. Refills 0, Maintenance, as needed for pain, 12/07/16 16:32:42, Route to Pharmacy Electronically, [id number], [facility]/pharmacy #207 Start Date: 12/07/16 Status: OrderedmetroNIDAZOLE 0.75% topical gel 1 applicator, Vaginally, Daily at bedtime, # 45 Gm, 0 Refills, Maintenance, 02/27/20 15:32:00 EDT, [facility]/pharmacy #[id number], 1 applicator Vaginally [...]
--- OUTSIDE RECORDS SUMMARY | 2022-06-12 09:16 | XMS_ITS | Continuity of Care Document ---
:1975 Author Organization [facility] Address [address] [place] [address], [address] [place] [address]- Care Team Providers Name Role Phone Marva BUNN, Xiomara Garcia Primary Care Physician [place] [facility] [place]): [place]21 - 08/19/21 [facility] [address] [place] [address], [address] [place] [address]- Allergies, Adverse Reactions, Alerts Substance Reaction Severity Status Seafood Shortness of breath Active Throat tightness Rash Medications albuterol CFC free 90 mcg/inh inhalation aerosol 1, puffs, Inhalation, Once, PRN, # 7 Gm, Refills 0, Maintenance, 11/08/16 15:57:49, Aerosol, Compound Start Date: 11/08/16 Status: OrderedCombipatch 0.05 mg-0.25 mg/24 hours transdermal film, extended release See Instructions, 1 patch Topically twice a week as directed on package labeling, # 8 patch, 13 Refills, Maintenance, 07/20/21 16:19:00 EST, [facility]/pharmacy #[id number], Partial fill upon patient request if theprescription is for a schedule II opioid drug.,... Start Date: 07/20/21 Status: Orderedibuprofen 600 mg oral tablet 600 mg, 1, tablet, By Mouth, Every 6 hours, PRN, # 60 tablet, Refills 0, Tot. Refills 0, Maintenance, as needed for pain, 12/07/16 16:32:42, Route to Pharmacy Electronically, [id number], [facility]/pharmacy #[id number] Start Date: 12/07/16 Status: OrderedMotrin Tablet 600 mg, By Mouth, Every 8 hours, PRN, Maintenance, migraine from heavy bleeding, 05/06/13 23:39:16 Start Date: 05/06/13 Status: OrderedProvera 10 mg oral tablet 10 mg, 1, tablet, By Mouth, 2 times a day, # 60 tablet, Refills 5, Tot. Refills 5, Maintenance, 06/14/21 16:21:00 EST, Route to Pharmacy Electronically, [facility]/pharmacy #[id number], Partial fill upon patient request if the [...]
--- OUTSIDE RECORDS SUMMARY | 2022-06-12 09:16 | XMS_ITS | Continuity of Care Document ---
:1975 Author Organization [facility] BALLET COMPANY ARTISTIC DIRECTOR Oncology Address [address] [place] [address]- Care Team Providers Name Role Phone Marva BUNN, Xiomara Garcia Primary Care Physician [place] [facility] [place]20 - 03/31/20 [facility] BALLET COMPANY ARTISTIC DIRECTOR Oncology [address] [place] [address]- [facility] Allergies, Adverse Reactions, Alerts Substance Reaction Severity [...] pain, 12/07/16 16:32:42, Route to Pharmacy Electronically, [id number], [facility]/pharmacy #207 Start Date: 12/07/16 Status: OrderedmetroNIDAZOLE 0.75% topical gel 1 applicator, Vaginally, Daily at bedtime, # 45 Gm, 0 Refills, Maintenance, 02/27/20 15:32:00 EDT, [facility]/pharmacy #[id number], 1 applicator Vaginally [...]
--- OUTSIDE RECORDS SUMMARY | 2022-06-12 09:16 | XMS_ITS | Continuity of Care Document ---
:1975 Author [facility] Address [address] [place] [address], [address] [place] [address]- Care Team Providers Name Role Phone Marva BUNN, Xiomara Garcia Primary Care Physician [place] [facility] [place]): [place]/15/21 - 07/15/21 [facility] [employer] [facility] [address] [place] [address], [address] [place] [address]- Allergies, Adverse Reactions, Alerts Substance Reaction Severity [...] pain, 12/07/16 16:32:42, Route to Pharmacy Electronically, [id number], [facility]/pharmacy #[id number] Start Date: 12/07/16 Status: OrderedMotrin Tablet 600 mg, By Mouth, Every 8 hours, PRN, Maintenance, migraine from heavy bleeding, 05/06/13 23:39:16 Start Date: 05/06/13 Status: OrderedProvera 10 mg oral tablet 10 mg, 1, tablet, By Mouth, 2 times a day, # 60 tablet, Refills 5, Tot. Refills 5, Maintenance, 06/14/21 16:21:00 EST, Route to Pharmacy Electronically, [facility]/pharmacy #[id number], Partial fill upon patient request if the [...]
--- OUTSIDE RECORDS SUMMARY | 2022-06-12 09:16 | XMS_ITS | Continuity of Care Document ---
:1975 Author [facility] Address [address] [place] [address], [address] [place] [address]- Care Team Providers Name Role Phone Marva BUNN, Xiomara Garcia Primary Care Physician En[place] [facility] Date(s): 06/14/21 - 07/14/21 [facility] [address] [place] [address], [address] [place] [address]- Allergies, Adverse Reactions, Alerts Substance Reaction Severity [...] pain, 12/07/16 16:32:42, Route to Pharmacy Electronically, [id number], [facility]/pharmacy #[id number] Start Date: 12/07/16 Status: OrderedMotrin Tablet 600 mg, By Mouth, Every 8 hours, PRN, Maintenance, migraine from heavy bleeding, 05/06/13 23:39:16 Start Date: 05/06/13 Status: OrderedProvera 10 mg oral tablet 10 mg, 1, tablet, By Mouth, 2 times a day, # 60 tablet, Refills 5, Tot. Refills 5, Maintenance, 06/14/21 16:21:00 EST, Route to Pharmacy Electronically, [facility]/pharmacy #30, Partial fill upon patient request if the [...]
--- OUTSIDE RECORDS SUMMARY | 2022-06-12 09:16 | XMS_ITS | Continuity of Care Document ---
:1975 Author Organization [facility] GAS COLLECTION SYSTEM OPERATOR Oncology Address [address] [place] [address]- Care Team Providers Name Role Phone Marva BUNN, Xiomara Garcia Primary Care Physician [place] [facility] [place](s): 02/27/20 - 03/28/20 [facility] GAS COLLECTION SYSTEM OPERATOR Oncology [address] [place] [address] [facility] Attending Physician: AdmtrVale Admitting Physician: Admtr, Ar8 Referring Physician: Admtr, Ar8 Allergies, Adverse Reactions, Alerts Substance Reaction Severity [...] pain, 12/07/16 16:32:42, Route to Pharmacy Electronically, [id number], [facility]/pharmacy #[id number] Start Date: 12/07/16 Status: OrderedmetroNIDAZOLE 0.75% topical gel 1 applicator, Vaginally, Daily at bedtime, # 45 Gm, 0 Refills, Maintenance, 02/27/20 15:32:00 EDT, [facility]/pharmacy #207, 1 applicator Vaginally Daily at bedtime,x5 [...]
--- OUTSIDE RECORDS SUMMARY | 2022-06-12 09:16 | XMS_ITS | Continuity of Care Document ---
:1975 Author Organization [facility] COLLISION TECHNICIAN Oncology Address [address] [place] [address]- Care Team Providers Name Role Phone Marva BUNN, Xiomara Garcia Primary Care Physician [place] [facility] [place] 03/17/21 - 04/16/21 [facility] COLLISION TECHNICIAN Oncology [address] [place] [id number] Allergies, Adverse Reactions, Alerts Substance Reaction [...] pain, 12/07/16 16:32:42, Route to Pharmacy Electronically, [id number], [facility]/pharmacy #[id number] Start Date: 12/07/16 Status: OrderedmetroNIDAZOLE 0.75% topical gel 1 applicator, Vaginally, Daily at bedtime, # 45 Gm, 0 Refills, Maintenance, 02/27/20 15:32:00 EDT, [facility]/pharmacy #[id number], 1 applicator Vaginally Daily at bedtime,x5 [...]
--- OUTSIDE RECORDS SUMMARY | 2022-06-12 09:16 | XMS_ITS | Continuity of Care Document ---
:1975 Author [facility] Address [address] [place] [address], [address] [place] [address]- Care Team Providers Name Role Phone Marva BUNN, Xiomara Garcia Primary Care Physician [place] [facility] [place] 06/15/21 - 07/15/21 [facility] [address] [place] [address], [address] [place] [address]- Allergies, Adverse Reactions, Alerts Substance Reaction Severity [...] pain, 12/07/16 16:32:42, Route to Pharmacy Electronically, [id number], [facility]/pharmacy #[id number] Start Date: 12/07/16 Status: OrderedMotrin Tablet 600 mg, By Mouth, Every 8 hours, PRN, Maintenance, migraine from heavy bleeding, 05/06/13 23:39:16 Start Date: 05/06/13 Status: OrderedProvera 10 mg oral tablet 10 mg, 1, tablet, By Mouth, 2 times a day, # 60 tablet, Refills 5, Tot. Refills 5, Maintenance, 06/14/21 16:21:00 EST, Route to Pharmacy Electronically, [facility]/pharmacy #52, Partial fill upon patient request if the [...]
--- OUTSIDE RECORDS SUMMARY | 2022-06-12 09:16 | XMS_ITS | Continuity of Care Document ---
:1975 Author Organization [facility] Address [address] [place] [address], [address] [place] [address]- Care Team Providers Name Role Phone Marva BUNN, Xiomara Garcia Primary [id number]): [facility]14[facility]21 - 06/21/21 [facility] [place] [facility] [address] [place] [address], [address] [place] [address]- Attending Physician: Adela August MD Referring Physician: Georgia Solis MD Allergies, Adverse Reactions, Alerts Substance Reaction [...] pain, 12/07/16 16:32:42, Route to Pharmacy Electronically, [id number], [facility]/pharmacy #[id number] Start Date: 12/07/16 Status: OrderedMotrin Tablet 600 mg, By Mouth, Every 8 hours, PRN, Maintenance, migraine from heavy bleeding, 05/06/13 23:39:16 Start Date: 05/06/13 Status: OrderedProvera 10 mg oral tablet 10 mg, 1, tablet, By Mouth, 2 times a day, # 60 tablet, Refills 5, Tot. Refills 5, Maintenance, 12/14/21 16:21:00 EST, Route to Pharmacy Electronically, [facility]/pharmacy #[id number], Partial fill upon patient request if the prescription is for a schedule II opi... Start Date: 06/14/21 Status: Ordered Problem List Condition Effective Dates Status Health Status Informant Asthma(Confirmed) Active Cervicitis(Confirmed) Active Cervical dysplasia(Confirmed) Active Obese class I(Confirmed) Active Procedures Procedure Date Related Diagnosis Body Site Status Biopsy Completed Tubal ligation Completed Vital Signs Most recent to oldest [Reference Range]: 1 Height 161 cm (06/14/21 9:51 AM) Weight 85.27 kg (06/14/21 9:51 AM) Pulse Rate [55-90 bpm] 68 bpm (06/14/21 9:51 AM) Body Mass Index [18.5-24.99] 32.9 *>HHI* (06/14/21 9:51 AM) Blood Pressure [90-138/55-84 mm Hg] 123/74 mm Hg (06/14/21 9:51 AM) Respiratory Rate [16-30 br/min] 17 br/min (06/14/21 9:51 AM) Blood pressure sites Arm, left (06/14/21 9:51 AM) Weight Obtained Via Standing scale (06/14/21 9:51 AM) Social History Social History Type Response Smoking Status Former smoker, quit more shannan n 30 days ago entered on: 12/26/19 Sex
--- OUTSIDE RECORDS SUMMARY | 2022-06-12 09:16 | XMS_ITS | Continuity of Care Document ---
:1975 Author Organization [facility] ICE CREAM VENDOR Oncology Address [address] [place] [address]- Care Team Providers Name Role Phone Xiomara Durham MD Primary Care Physician [place] [facility] [place] 02/21/20 [facility] [employer] CREAM VENDOR Oncology [address] [place] [address]- [facility] Allergies, Adverse Reactions, Alerts Substance Reaction Severity [...] pain, 12/07/16 16:32:42, Route to Pharmacy Electronically, [id number], [facility]/pharmacy #[id number] Start Date: 12/07/16 Status: OrderedMotrin Tablet 600 [...]
--- OUTSIDE RECORDS SUMMARY | 2022-06-12 09:16 | XMS_ITS | Continuity of Care Document ---
:1975 Author Organization [facility] Address [address] [place] [address], [address] [place] [address]- Care Team Providers Name Role Phone Marva BUNN, Xiomara Garcia Primary Care Physician Encounter [facility] [place] Date(s): 06/29/21 - 07/29/21 [facility] [address] [place] [address], [address] [place] [address]- Allergies, Adverse Reactions, Alerts Substance Reaction Severity [...] patch, 13 Refills, Maintenance, 07/20/21 16:19:00 EST, [facility]/pharmacy #[id number], Partial fill upon patient request if theprescription is for a schedule II opioid drug.,... Start Date: 07/20/21 Status: Orderedibuprofen 600 mg oral tablet 600 mg, 1, tablet, By Mouth, Every 6 hours, PRN, # 60 tablet, Refills 0, Tot. Refills 0, Maintenance, as needed for pain, 12/07/16 16:32:42, Route to Pharmacy Electronically, [id number], [facility]/pharmacy #[id number] Start Date: 12/07/16 Status: OrderedMotrin Tablet 600 mg, By Mouth, Every 8 hours, PRN, Maintenance, migraine from heavy bleeding, 05/06/13 23:39:16 Start Date: 05/06/13 Status: OrderedProvera 10 mg oral tablet 10 mg, 1, tablet, By Mouth, 2 times a day, # 60 tablet, Refills 5, Tot. Refills 5, Maintenance, 06/14/21 16:21:00 EST, Route to Pharmacy Electronically, [facility]/pharmacy #[id number], Partial fill upon patient request if the [...]
--- OUTSIDE RECORDS SUMMARY | 2022-06-12 09:16 | XMS_ITS | Continuity of Care Document ---
:1975 Author Organization [facility] ROLL SCALE MAN Oncology Address [address] [place] [address]- Care Team Providers Name Role Phone Marva BUNN, Xiomara Garcia Primary Care Physician En[place] [facility] [place] Date(s): 03/04/20 - 04/03/20 [facility] ROLL SCALE MAN Oncology [address] [place] [address]- [facility] Allergies, Adverse Reactions, Alerts Substance Reaction [...] pain, 12/07/16 16:32:42, Route to Pharmacy Electronically, [id number], [facility]/pharmacy #207 Start Date: 12/07/16 Status: OrderedmetroNIDAZOLE 0.75% topical gel 1 applicator, Vaginally, Daily at bedtime, # 45 Gm, 0 Refills, Maintenance, 02/27/20 15:32:00 EDT, [facility]/pharmacy #[id number], 1 applicator Vaginally Daily at [...]
--- OUTSIDE RECORDS SUMMARY | 2022-06-12 09:16 | XMS_ITS | Continuity of Care Document ---
:1975 Author Organization [facility] AUGER MILL OPERATOR Oncology Address [address] [place] [address]- Care Team Providers Name Role Phone Marva BUNN, Xiomara Garcia Primary Care Physician En[place] [facility] [place] Date(s): 04/25/21 - 05/25/21 [facility] AUGER MILL OPERATOR Oncology [address] [place] [address]- Allergies, Adverse Reactions, Alerts Substance Reaction Severity [...] pain, 12/07/16 16:32:42, Route to Pharmacy Electronically, [id number], [facility]/pharmacy #[id number] Start Date: 12/07/16 Status: OrderedmetroNIDAZOLE 0.75% topical gel 1 applicator, Vaginally, Daily at bedtime, # 45 Gm, 0 Refills, Maintenance, 02/27/20 15:32:00 EDT, [facility]/pharmacy #[id number], 1 applicator Vaginally Daily [...]
--- OUTSIDE RECORDS SUMMARY | 2022-06-12 09:16 | XMS_ITS | Continuity of Care Document ---
:1975 Author Organization [facility] Address [address] [place] [address], [address] [place] [address]- Care Team Providers Name Role Phone Marva BUNN, Xiomara Garcia Primary [id number]s): 04/25/21 - 05/25/21 [facility] [address] [place] [address], [address] [place] [address]- Allergies, Adverse Reactions, Alerts Substance Reaction Severity [...] Refills, Soft Stop, 02/27/20 16:03:00 EDT, Tablet, [facility]/pharmacy #207, 158, cm, 01/12/20 15:26:00 EDT, Height, 92, kg, 01/12/20 15:26:00 EDT, Dry Weight Start Date: 02/27/20 Status: Orderedibuprofen 600 mg oral tablet 600 mg, 1, tablet, By Mouth, Every 6 hours, PRN, # 60 tablet, Refills 0, Tot. Refills 0, Maintenance, as needed for pain, 12/07/16 16:32:42, Route to Pharmacy Electronically, [id number], [facility]/pharmacy #[id number] Start Date: 12/07/16 Status: OrderedmetroNIDAZOLE 0.75% topical gel 1 applicator, Vaginally, Daily at bedtime, # 45 Gm, 0 Refills, Maintenance, 02/27/20 15:32:00 EDT, [facility]/pharmacy #207, 1 applicator Vaginally Daily [...]
--- OUTSIDE RECORDS SUMMARY | 2022-06-12 09:16 | XMS_ITS | Continuity of Care Document ---
:1975 Author Organization [facility] [employer] DEVELOPER Oncology Address [address] [place] [address]- Care Team Providers Name Role Phone Marva BUNN, Xiomara Garcia Primary Care Physician En[place] [facility] [place] Date(s): 02/25/20 - 03/26/20 [facility] [employer] SOL[employer] DEVELOPER Oncology [address] [place] [address]- [facility] Allergies, Adverse Reactions, Alerts Substance Reaction Severity [...] pain, 12/07/16 16:32:42, Route to Pharmacy Electronically, [id number], [facility]/pharmacy #207 Start Date: 12/07/16 Status: OrderedmetroNIDAZOLE 0.75% topical gel 1 applicator, Vaginally, Daily at bedtime, # 45 Gm, 0 Refills, Maintenance, 02/27/20 15:32:00 EDT, [facility]/pharmacy #[id number], 1 applicator Vaginally Daily at [...]
--- OUTSIDE RECORDS SUMMARY | 2022-06-12 09:16 | XMS_ITS | Continuity of Care Document ---
:1975 Author Organization [facility] Address [address] [place] [address], [address] [place] [address]- Care Team Providers Name Role Phone Marva BUNN, Xiomara Garcia Primary Care Physician [place] [facility] [place] 07[place]20[place]21 - 08/19/21 [facility] [address] [place] [address], [address] [place] [id number] Allergies, Adverse Reactions, Alerts Substance Reaction Severity [...] patch, 13 Refills, Maintenance, 07/20/21 16:19:00 EST, [facility]/pharmacy #[id number], Partial fill upon patient request if theprescription is for a schedule II opioid drug.,... Start Date: 07/20/21 Status: Orderedibuprofen 600 mg oral tablet 600 mg, 1, tablet, By Mouth, Every 6 hours, PRN, # 60 tablet, Refills 0, Tot. Refills 0, Maintenance, as needed for pain, 12/07/16 16:32:42, Route to Pharmacy Electronically, [id number], [facility]/pharmacy #[id number] Start Date: 12/07/16 Status: OrderedMotrin Tablet 600 mg, By Mouth, Every 8 hours, PRN, Maintenance, migraine from heavy bleeding, 05/06/13 23:39:16 Start Date: 05/06/13 Status: OrderedProvera 10 mg oral tablet 10 mg, 1, tablet, By Mouth, 2 times a day, # 60 tablet, Refills 5, Tot. Refills 5, Maintenance, 06/14/21 16:21:00 EST, Route to Pharmacy Electronically, [facility]/pharmacy #[id number], Partial fill upon patient request if the [...]
--- OUTSIDE RECORDS SUMMARY | 2022-06-12 09:16 | XMS_ITS | Continuity of Care Document ---
:1975 Author Organization [facility] Address [address] [place] [address], [address] [place] [address]- Care Team Providers Name Role Phone Marva BUNN, Xiomara Garcia Primary Care Physician [place] [facility] [place] 08[place]19/21 [facility] [address] [place] [address], [address] [place] [phone] Allergies, Adverse Reactions, Alerts Substance [...] patch, 13 Refills, Maintenance, 07/20/21 16:19:00 EST, [facility]/pharmacy #[id number], Partial fill upon patient request if theprescription is for a schedule II opioid drug.,... Start Date: 07/20/21 Status: Orderedibuprofen 600 mg oral tablet 600 mg, 1, tablet, By Mouth, Every 6 hours, PRN, # 60 tablet, Refills 0, Tot. Refills 0, Maintenance, as needed for pain, 12/07/16 16:32:42, Route to Pharmacy Electronically, [id number], [facility]/pharmacy #[id number] Start Date: 12/07/16 Status: OrderedMotrin Tablet 600 mg, By Mouth, Every 8 hours, PRN, Maintenance, migraine from heavy bleeding, 05/06/13 23:39:16 Start Date: 05/06/13 Status: OrderedProvera 10 mg oral tablet 10 mg, 1, tablet, By Mouth, 2 times a day, # 60 tablet, Refills 5, Tot. Refills 5, Maintenance, 06/14/21 16:21:00 EST, Route to Pharmacy Electronically, [facility]/pharmacy #[id number], Partial fill upon patient request if the [...]
--- OUTSIDE RECORDS SUMMARY | 2022-06-12 09:16 | XMS_ITS | Continuity of Care Document ---
:1975 Author Organization [facility] [employer] FACTORY WORKER Oncology Address [address] [place] [address]- Care Team Providers Name Role Phone Xiomara Durham MD Primary Care Physician [place] [facility] [place](s[place] 05/17/21 - 06/16/21 [facility] [employer] FACTORY WORKER Oncology [address] [place] [id number] Allergies, Adverse Reactions, Alerts Substance Reaction Severity [...] pain, 12/07/16 16:32:42, Route to Pharmacy Electronically, [id number], [facility]/pharmacy #[id number] Start Date: 12/07/16 Status: OrderedMotrin Tablet 600 mg, By Mouth, Every 8 hours, PRN, Maintenance, migraine from heavy bleeding, 05/06/13 23:39:16 Start Date: 05/06/13 Status: OrderedProvera 10 mg oral tablet 10 mg, 1, tablet, By Mouth, 2 times a day, # 60 tablet, Refills 5, Tot. Refills 5, Maintenance, 06/14/21 16:21:00 EST, Route to Pharmacy Electronically, [facility]/pharmacy #[id number], Partial fill upon patient request if the [...]
--- OUTSIDE RECORDS SUMMARY | 2022-06-12 09:16 | XMS_ITS | Continuity of Care Document ---
:1975 Author Organization [facility] BALL TRUING MACHINE OPERATOR Oncology Address [address] [place] [address]- Care Team Providers Name Role Phone Xiomara Durham MD Primary Care Physician En[place] [facility] [place] Date(s): 05/11/21 - 06/10/21 [facility] BALL TRUING MACHINE OPERATOR Oncology [address] [place] [id number] Attending Physician: Admtr, Ar8 Admitting Physician: Admtr, Ar8 Referring Physician: Admtr, [...] Refills, Soft Stop, 02/27/20 16:03:00 EDT, Tablet, [facility]/pharmacy #207, 158, cm, 01/12/20 15:26:00 EDT, Height, 92, kg, 01/12/20 15:26:00 EDT, Dry Weight Start Date: 02/27/20 Status: Orderedibuprofen 600 mg oral tablet 600 mg, 1, tablet, By Mouth, Every 6 hours, PRN, # 60 tablet, Refills 0, Tot. Refills 0, Maintenance, as needed for pain, 12/07/16 16:32:42, Route to Pharmacy Electronically, [id number], [facility]/pharmacy #207 Start Date: 12/07/16 Status: OrderedmetroNIDAZOLE 0.75% topical gel 1 applicator, Vaginally, Daily at bedtime, # 45 Gm, 0 Refills, Maintenance, 02/27/20 15:32:00 EDT, [facility]/pharmacy #[id number], 1 applicator Vaginally Daily [...]
--- NOTE | 2022-06-12 09:19 | ED_ITS ---
HPI - Female Genitourinary General Chief complaint: Vaginal Bleeding Stated complaint: Vaginal bleeding Time Seen by Provider: 06/12/22 09:08 Source: patient Mode of arrival: ambulatory History of Present Illness HPI Narrative: 46-year-old female with a past medical history of asthma, , s/p tubal ligation, presenting to the ED complaining of heavy vaginal bleeding with clots x1 week. Reports filling a pad every 15 minutes. Reports associated nausea and lightheadedness this morning. Reports initially hearing a pop and then bleeding started. Called PCP who started her on progesterone which she started last night without benefit. Denies fever, chills, vaginal discharge, dysuria, flank pain. LMP 05/22. Denies taking anticoagulation or known bleeding disorders. MD elicited complaint: vaginal bleeding Onset (ago): week(s) Related Data Home Medications Medication Instructions Recorded Confirmed albuterol sulfate 90 mcg/actuation 1 puff inhalation Q4H PRN Wheezing 05/29/20 06/12/22 aerosol inhaler naproxen 500 mg tablet 500 mg PO BID 06/12/22 06/12/22 progesterone micronized 200 mg 200 mg PO BID 06/12/22 06/12/22 capsule Previous Rx's Medication Instructions Recorded ferrous sulfate 325 mg (65 mg 325 mg PO TID 30 days #90 tabs 06/12/22 iron) tablet Allergies Allergy/AdvReac Type Severity Reaction Status Date / Time SEAFOOD Allergy Intermediate UNKNOWN Uncoded 07/01/20 15:12 Review of Systems Review of Systems: Constitutional: No Fever, No Chills, + Fatigue, No Malaise ENT/Mouth: No Ear Pain, No Nasal Congestion, No sore throat, No Rhinorrhea, No Swallowing Difficulty Eyes: No Eye Pain, No Swelling, No Redness, No Vision Changes Cardiovascular: No Chest Pain, No SOB, No Dyspnea on Exertion, No Orthopnea, No Edema, No Palpitations Respiratory: No Cough, No Sputum, No Dyspnea Gastrointestinal: + Nausea, No Vomiting, No Diarrhea, No Constipation, + Abdominal pain Genitourinary: + irregular bleeding, No Dysuria, No Urinary Frequency, No Hematuria, No Flank Pain Musculoskeletal: No joint pain, No Myalgias, No Joint Swelling Skin: No Skin Lesions, No rash Neuro: No Weakness, No Numbness, No Loss of Consciousness, + lightheaded, No Headache Yes all other systems are reviewed and are negative Constitutional: Constitutional: Reports as per [facility] Past Medical History Attestation statement: The following information was validated with the patient. Medical History Asthma Social History Social History Alcohol intake: current Alcohol intake frequency: holidays/special occasions only Alcohol type: beer and wine Physical Exam Vital Signs: Vital Signs: Last Vital Signs Temp 98.0 F 06/12/22 17:10 Pulse 70 06/12/22 17:10 Resp 16 06/12/22 17:10 BP 132/73 06/12/22 17:10 Pulse Ox 100 06/12/22 17:10 O2 Del Method 06/12/22 17:10 BMI result Body Mass Index 31.8 Const: General: cooperative, healthy appearing, no acute distress, alert and awake Orientation/consciousness: patient oriented x3 Limitations: no limitations HEENT: Head: Yes normal to inspection and Yes atraumatic Ears: hearing grossly normal bilaterally General nose exam: Normal external nose present Face and sinus: Yes normal facial exam Eyes: General: appearance normal, both eyes and all related structures EOM: EOMs intact bilaterally Neck: Neck: Yes normal visual inspection and Yes no meningeal signs Resp: Effort & Inspection: normal respiratory effort and no respiratory distress Auscultation: clear to auscultation bilaterally Cardio: Rate: regular rate Heart sounds: S1 normal heart sound present and S2 normal heart sound present GI: Inspection: Yes normal to inspection Palpation (GI): Soft to palpation, nontender, no guarding and not rigid : General: Yes no CVA tenderness Back/Spine/Pelvis: Back: no CVA tenderness Skin: Rashes: no rashes Wounds: no wounds Neuro: General: patient oriented x3, gait normal, tone normal, moves all extremities, no meningeal signs and no focal motor deficits Gait exam (Neuro): Normal gait present Extrem: General: Yes normal to inspection Course Course Course Narrative: -1015--no leukocytosis. H&H critically low at 6.4/21.6 > 2 unit RBCs ordered, blood consent signed and in patient's chart -labs otherwise reassuring. Beta quant negative 1206--US pelvic and transvaginal IMPRESSION: Distal endometrial thickness 1.5 cm with mixed echogenicity and a focal echogenic lesion is isolated which does show some associated vascularity. This could represent a polyp versus other.. Gynecologic consultation is warranted. >>1205-- case discussed with OBGYN Dr. Ho, he will come evaluate patient in the ED -Dr. Ho evaluated patient in the emergency department, patient has changed pad only twice since ED arrival. No evidence of active hemorrhage/bleeding on his pelvic exam, recommended 2 unit RBC transfusion & discharge home with continuation of Provera, iron sulfate, & close follow-up Results discussed with patient including worrisome signs and symptoms and strict return precautions, and when to return to the emergency department. They verbal ized understanding and feel safe for discharge at this time. Medications Administered Discontinued Medications Generic Name Dose Route Start Last Admin Trade Name Freq PRN Reason Stop Dose Admin Sodium Chloride 1,000 mls @ 999 mls/hr 06/12/22 09:30 06/12/22 13:52 Ns IV 06/12/22 10:30 Infused .Q1H1M [facility] Infusion Ondansetron HCl 4 mg 06/12/22 09:30 06/12/22 09:54 Ondansetron Hcl 4 Mg/2 Ml Vial IVPUSH 06/12/22 09:31 4 mg ONCE ONE Administration Medical Decision Making Medical Decision Making [facility] Narrative: 46-year-old female with a past medical history of asthma, , s/p tubal ligation, presenting to the ED complaining of heavy vaginal bleeding with clots x1 week. On exam VSS, NAD, nontoxic appearing, abd soft and nontender, on pelvic exam Differential Diagnosis Differential Diagnoses: The differential diagnosis associated with the presentation includes Lab Data [facility] Lab Attestation statement: I reviewed the patient's lab results. Result Diagrams: 06/12/22 09:37 06/12/22 09:38 Labs: Lab Results 06/12/22 06/12/22 06/12/22 Range/Units 09:37 09:38 09:38 WBC 6.3 (4.8-10.8) X10*3/uL RBC 2.65 L D (4.20-5.50) X10*6/uL Hgb 6.4 L* D (12.0-16.0) g/dl Hct 21.6 L D (37.0-47.0) % MCV 81.5 (80.0-98.0) fL MCH 24.2 L (27.0-33.0) pg MCHC 29.6 L (31.0-35.0) g/dl RDW 17.0 H (11.0-16.0) % Plt Count 356 (160-400) X10*3/uL MPV 8.9 L (9.4-12.3) fL Immature Gran % (Auto) 0.5 H (0.0-0.4) % Neut % (Auto) 60.0 (45-73) % Lymph % (Auto) 29.5 (20-40) % [place] % (Auto) 7.6 (2-11) % Eos % (Auto) 1.6 (0-4) % Baso % (Auto) 0.8 (0-2) % Lymph # (Auto) 1.9 (1.2-4.9) X10*3/uL [place] # (Auto) 0.5 (0.1-1.2) X10*3/uL Eos # (Auto) 0.1 (0.0-0.4) X10*3/uL Baso # (Auto) 0.1 (0.0-0.2) X10*3/uL Abs Immat Gran (auto) 0.03 (0.00-0.03) X10*3/uL Absolute Neuts (auto) 3.8 (2.0-8.3) x10*3/uL Absolute Nucleated RBC 0.000 (0.0-0.012) X10*3/uL Nucleated RBC % (auto) 0.0 (0.0-0.2) /100WBC PT 10.4 (10.0-13.1) SEC INR 0.9 (0.9-1.1) APTT (26.0-36.4) SEC Sodium 138 (135-145) mmol/L Potassium 3.8 (3.3-5.1) mmol/L Chloride 108 (96-108) mmol/L Carbon Dioxide 24 (22-29) mmol/L Anion Gap 10 L (12-20) BUN 12 (9-16) mg/dL Creatinine 0.76 (0.5-1.4) mg/dL Estim Creat Clear Calc 94.5 Estimated GFR > 60 Random Glucose 84 (60-115) mg/dL Calcium 8.8 (8.4-10.2) mg/dL Total Bilirubin 0.2 (0.0-1.0) mg/dL Direct Bilirubin < 0.2 (0.0-0.5) mg/dL AST 18 (5-31) U/L ALT 19 (0-31) U/L Alkaline Phosphatase 64 (39-117) U/L Total Protein 6.4 L (6.5-8.0) g/dL Albumin 3.8 (3.5-5.0) g/dL Lipase 21 (8-78) U/L Beta HCG, Quant < 2 mIU/mL Urine Color Urine Appearance Urine pH (5.0-9.0) Ur Specific [place] (1.005-1.025) Urine Protein (Neg-Trace) mg/dL Urine Glucose (UA) (Negative) mg/dL Urine Ketones (Negative) mg/dL Urine Blood (Negative) Urine Nitrite (Negative) Ur Leukocyte Esterase (Negative) Urine RBC (0-2) /HPF Urine WBC (0-5) /HPF Ur Squamous Epith Cells (0-2) /HPF Urine Bacteria (None Seen) Hyaline Casts (0-2) /LPF Urine Test (NEGATIVE) Chlam trachomat DNA PCR (Not Detect.) COVID-19 ([facility]) (Negative) COVID-19 Clin Com N.gonorrhoeae DNA (PCR) (Not Detect.) Blood Type Antibody Screen Crossmatch 06/12/22 06/12/22 06/12/22 Range/Units 09:38 09:38 09:52 WBC (4.8-10.8) X10*3/uL RBC (4.20-5.50) X10*6/uL Hgb (12.0-16.0) g/dl Hct (37.0-47.0) % MCV (80.0-98.0) fL MCH (27.0-33.0) pg MCHC (31.0-35.0) g/dl RDW (11.0-16.0) % Plt Count (160-400) X10*3/uL MPV (9.4-12.3) fL Immature Gran % (Auto) (0.0-0.4) % Neut % (Auto) (45-73) % Lymph % (Auto) (20-40) % [place] % (Auto) (2-11) % Eos % (Auto) (0-4) % Baso % (Auto) (0-2) % Lymph # (Auto) (1.2-4.9) X10*3/uL [place] # (Auto) (0.1-1.2) X10*3/uL Eos # (Auto) (0.0-0.4) X10*3/uL Baso # (Auto) (0.0-0.2) X10*3/uL Abs Immat Gran (auto) (0.00-0.03) X10*3/uL Absolute Neuts (auto) (2.0-8.3) x10*3/uL Absolute Nucleated RBC (0.0-0.012) X10*3/uL Nucleated RBC % (auto) (0.0-0.2) /100WBC PT (10.0-13.1) SEC INR (0.9-1.1) APTT 27.2 (26.0-36.4) SEC Sodium (135-145) mmol/L Potassium (3.3-5.1) mmol/L Chloride (96-108) mmol/L Carbon Dioxide (22-29) mmol/L Anion Gap (12-20) BUN (9-16) mg/dL Creatinine (0.5-1.4) mg/dL Estim Creat Clear Calc Estimated GFR Random Glucose (60-115) mg/dL Calcium (8.4-10.2) mg/dL Total Bilirubin (0.0-1.0) mg/dL Direct Bilirubin (0.0-0.5) mg/dL AST (5-31) U/L ALT (0-31) U/L Alkaline Phosphatase (39-117) U/L Total Protein (6.5-8.0) g/dL Albumin (3.5-5.0) g/dL Lipase (8-78) U/L Beta HCG, Quant mIU/mL Urine Color Urine Appearance Urine pH (5.0-9.0) Ur Specific [place] (1.005-1.025) Urine Protein (Neg-Trace) mg/dL Urine Glucose (UA) (Negative) mg/dL Urine Ketones (Negative) mg/dL Urine Blood (Negative) Urine Nitrite (Negative) Ur Leukocyte Esterase (Negative) Urine RBC (0-2) /HPF Urine WBC (0-5) /HPF Ur Squamous Epith Cells (0-2) /HPF Urine Bacteria (None Seen) Hyaline Casts (0-2) /LPF Urine Test NEGATIVE (NEGATIVE) Chlam trachomat DNA PCR (Not Detect.) COVID-19 ([facility]) (Negative) COVID-19 Clin Com N.gonorrhoeae DNA (PCR) (Not Detect.) Blood Type O Positive Antibody Screen NEGATIVE Crossmatch See Detail 06/12/22 06/12/22 06/12/22 Range/Units 11:25 13:22 13:54 WBC (4.8-10.8) X10*3/uL RBC (4.20-5.50) X10*6/uL Hgb (12.0-16.0) g/dl Hct (37.0-47.0) % MCV (80.0-98.0) fL MCH (27.0-33.0) pg MCHC (31.0-35.0) g/dl RDW (11.0-16.0) % Plt Count (160-400) X10*3/uL MPV (9.4-12.3) fL Immature Gran % (Auto) (0.0-0.4) % Neut % (Auto) (45-73) % Lymph % (Auto) (20-40) % [place] % (Auto) (2-11) % Eos % (Auto) (0-4) % Baso % (Auto) (0-2) % Lymph # (Auto) (1.2-4.9) X10*3/uL [place] # (Auto) (0.1-1.2) X10*3/uL Eos # (Auto) (0.0-0.4) X10*3/uL Baso # (Auto) (0.0-0.2) X10*3/uL Abs Immat Gran (auto) (0.00-0.03) X10*3/uL Absolute Neuts (auto) (2.0-8.3) x10*3/uL Absolute Nucleated RBC (0.0-0.012) X10*3/uL Nucleated RBC % (auto) (0.0-0.2) /100WBC PT (10.0-13.1) SEC INR (0.9-1.1) APTT (26.0-36.4) SEC Sodium (135-145) mmol/L Potassium (3.3-5.1) mmol/L Chloride (96-108) mmol/L Carbon Dioxide (22-29) mmol/L Anion Gap (12-20) BUN (9-16) mg/dL Creatinine (0.5-1.4) mg/dL Estim Creat Clear Calc Estimated GFR Random Glucose (60-115) mg/dL Calcium (8.4-10.2) mg/dL Total Bilirubin (0.0-1.0) mg/dL Direct Bilirubin (0.0-0.5) mg/dL AST (5-31) U/L ALT (0-31) U/L Alkaline Phosphatase (39-117) U/L Total Protein (6.5-8.0) g/dL Albumin (3.5-5.0) g/dL Lipase (8-78) U/L Beta HCG, Quant mIU/mL Urine Color Yellow Urine Appearance Clear Urine pH 5.5 (5.0-9.0) Ur Specific [place] 1.020 (1.005-1.025) Urine Protein Negative (Neg-Trace) mg/dL Urine Glucose (UA) Negative (Negative) mg/dL Urine Ketones Negative (Negative) mg/dL Urine Blood Large (3+) H (Negative) Urine Nitrite Negative (Negative) Ur Leukocyte Esterase Negative (Negative) Urine RBC 11-20 H (0-2) /HPF Urine WBC 0-5 (0-5) /HPF Ur Squamous Epith Cells 3-5 (0-2) /HPF Urine Bacteria None Seen (None Seen) Hyaline Casts 0-2 (0-2) /LPF Urine Test (NEGATIVE) Chlam trachomat DNA PCR NOT DETECTED (Not Detect.) COVID-19 ([facility]) Negative (Negative) COVID-19 Clin Com See Note N.gonorrhoeae DNA (PCR) NOT DETECTED (Not Detect.) Blood Type Antibody Screen Crossmatch Discharge Plan Discharge Clinical Impression: Abnormal uterine bleeding Patient Disposition: Home, Self-Care Instructions: Dysfunctional Uterine Bleeding (ED) Additional Instructions: Your blood count was very low today in the emergency department. You were transfused 2 units of blood Your blood work was otherwise reassuring. Your evaluated by our adolescent medicine specialist, you need to follow-up in his office in 2 days as discussed Continue taking previously prescribed Provera. In addition start taking iron sulfate If you develop persistent or worsening bleeding, increasing pain, fever, lightheadedness/dizziness or passing out return to the emergency department immediately Prescriptions: New ferrous sulfate 325 mg (65 mg iron) tablet 325 mg PO TID 30 Days Qty: 90 0RF No Action albuterol sulfate 90 mcg/actuation HFA aerosol inhaler 1 puff inhalation Q4H PRN (Reason: Wheezing) progesterone micronized 200 mg capsule 200 mg PO BID naproxen 500 mg tablet 500 mg PO BID Referrals: Warren Ho MD [Physician] - 2 days
[2022-06-12 09:45] LABS: MANUAL DIFF FLAG NO
[2022-06-12 09:52] LABS: Basophils Absolute Auto 0.1 X10*3/uL (0.0-0.2); Basophils Percent Auto 0.8 % (0-2); Eosinophils Absolute Auto 0.1 X10*3/uL (0.0-0.4); Eosinophils Percent Auto 1.6 % (0-4); Hematocrit 21.6 % (37.0-47.0); Imm Gran Abs Auto 0.03 X10*3/uL (0.00-0.03); Imm Gran Pct Auto 0.5 % (0.0-0.4); Lymphocytes Absolute Auto 1.9 X10*3/uL (1.2-4.9); Lymphocytes Percent Auto 29.5 % (20-40); Mean Corpuscular HGB Conc 29.6 g/dl (31.0-35.0); Mean Corpuscular Hemoglobin 24.2 pg (27.0-33.0); Mean Corpuscular Volume 81.5 fL (80.0-98.0); Mean Platelet Volume 8.9 fL (9.4-12.3); Monocytes Absolute Auto 0.5 X10*3/uL (0.1-1.2); Monocytes Percent Auto 7.6 % (2-11); Neutrophils Absolute Auto 3.8 x10*3/uL (2.0-8.3); Platelet Count 356 X10*3/uL (160-400); Red Blood Count 2.65 X10*6/uL (4.20-5.50); White Blood Count 6.3 X10*3/uL (4.8-10.8)
[2022-06-12] MEDS: ondansetron HCL 4 MG/2 ML VIAL IVPUSH (09:54)
[2022-06-12] MEDS: 0.9 % Sodium Chloride 1,000 ML 999 ML IV (09:54)
[2022-06-12 09:56] LABS: Hemoglobin 6.4 g/dl (12.0-16.0)
[2022-06-12 09:59] LABS: INTERNATIONAL NORM RATIO 0.9 (0.9-1.1); Prothrombin Time 10.4 SEC (10.0-13.1)
[2022-06-12 10:00] LABS: UPreg QC Valid YES; Urine Pregnancy NEGATIVE (NEGATIVE)
[2022-06-12 10:01] LABS: Partial Thromboplastin Time 27.2 SEC (26.0-36.4)
[2022-06-12 10:22] LABS: Alanine Aminotransferase 19 U/L (0-31); Albumin Level 3.8 g/dL (3.5-5.0); Alkaline Phosphatase 64 U/L (39-117); Anion Gap 10 (12-20); Aspartate Amino Transferase 18 U/L (5-31); Bilirubin Direct < 0.2 mg/dL (0.0-0.5); Bilirubin Total 0.2 mg/dL (0.0-1.0); Blood Urea Nitrogen 12 mg/dL (9-16); Calcium 8.8 mg/dL (8.4-10.2); Carbon Dioxide 24 mmol/L (22-29); Chloride 108 mmol/L (96-108); Creatinine Clr Calc Pharmacy 94.5; Estimated Glomerular Filt Rate > 60; Glucose Random 84 mg/dL (60-115); HCG Quantitative < 2 mIU/mL; Lipase 21 U/L (8-78); Potassium 3.8 mmol/L (3.3-5.1); Sodium 138 mmol/L (135-145); Total Protein 6.4 g/dL (6.5-8.0)
--- NOTE | 2022-06-12 11:31 | PHA.MEDREC ---
Pharmacy Consult ? Medication Reconciliation Pharmacy has completed the medication reconciliation. Patient reported she does not use the Flovent Inhaler at home. Soila Schuster, Foreign[employer]
[2022-06-12 11:48] LABS: COVID-19 Test Negative (Negative); IDNOW Serial# 16C4AD1C
--- NOTE | 2022-06-12 12:01 | P.CONOB_ITS ---
BAR[employer] - CN: HPI Data of Consult Consult date: 06/12/22 Primary Care Provider: Xiomara Durham MD Consult Narrative Narrative: I was consulted on Eugenia Vickers who is a 46 year old female who presents to the emergency room with 1 week history of heavy vaginal bleeding associated with pelvic cramping and passage of blood clots, the patient gives a history of changing 1 pad every 15 minutes she contacted her primary care physician was started on Provera 10 mg p.o. q.d. yesterday. Last co testing according to patient was 1 year ago at [facility]. No history of previous mammogram done. During her stay in the emergency room over the last 5 hours her bleeding slowed down markedly the patient change only 2 pads minimally. In the emergency room H&H was 6.4/21.6, hCG was negative. 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 - Review of Systems Review of Systems ROS Unobtainable: All systems reviewed & are unremarkable except as noted in HPI and below Cardiovascular: Denies Palpatations, Loss of consciousness or Chest pain Respiratory: Denies Cough, Wheezing or Shortness of breath Musculoskeletal: Denies Low back pain Gastrointestinal: Denies Heartburn, Constipation, Diarrhea, Nausea or Vomiting Genitourinary: Denies Pain with urination, Burning with urination or Urinary frequency Neurological: Denies Migranes Psychological: Denies Depression OB [facility] Past Medical History Medical History Asthma Social History Social History Alcohol intake: current Alcohol intake frequency: holidays/special occasions only Alcohol type: beer and wine Smoked in Last 30 Days: No Use of substances other than those prescribed or required for medical reasons: No Advance Directives: No Advance Directives Information Provided: No Meds Allergies Allergy/AdvReac Type Severity Reaction Status Date / Time SEAFOOD Allergy Intermediate UNKNOWN Uncoded 07/01/20 15:12 Home Medications Medication Instructions Recorded Confirmed Last Taken Type albuterol sulfate 90 mcg/actuation 1 puff inhalation Q4H PRN Wheezing 05/29/20 06/12/22 Unknown History aerosol inhaler naproxen 500 mg tablet 500 mg PO BID 06/12/22 06/12/22 Unknown History progesterone micronized 200 mg 200 mg PO BID 06/12/22 06/12/22 Unknown History capsule [facility] Physical Exam Vitals Vital signs: Temp Pulse Resp BP Pulse Ox O2 Del Method 98.0 F 77 18 141/50 H 100 06/12/22 11:55 06/12/22 11:55 06/12/22 11:55 06/12/22 11:55 06/12/22 08:58 06/12/22 08:58 BMI result Body Mass Index 31.8 Constitutional General Appearance: Healthy appearing, Well-nourished and Well-developed Psychiatric Mood and Affect: active and alert, normal mood and normal affect Skin Appearance: No rashes and No lesions Lungs Respiratory Effort: No intercostal retractions Auscultation: Clear to auscultation Cardiovascular Auscultation: RRR Abdomen Auscultation/Inspection/Palpation: Normal bowel sounds, Soft, Non-distended and No tenderness Female Genitalia (Pelvic) Bladder/Urethra: Normal meatus Vulva: No lesions Vagina: Nontender Cervix: Grossly normal Uterus: Normal size Adnexa/Parametria: Adnexal Tenderness: None Additional Comments: Minimal blood per vagina, No evidence of active vaginal bleeding [employer] [employer] - Results Labs CBC & Chem 7: 06/12/22 09:37 06/12/22 09:38 Labs: Short CBC 06/12/22 Range/Units 09:37 WBC 6.3 (4.8-10.8) X10*3/uL Hgb 6.4 L* D (12.0-16.0) g/dl Hct 21.6 L D (37.0-47.0) % Plt Count 356 (160-400) X10*3/uL BMP 06/12/22 09:38 Sodium 138 Potassium 3.8 Chloride 108 Carbon Dioxide 24 BUN 12 Creatinine 0.76 Calcium 8.8 Liver Function 06/12/22 Range/Units 09:38 Total Bilirubin 0.2 (0.0-1.0) mg/dL Direct Bilirubin < 0.2 (0.0-0.5) mg/dL AST 18 (5-31) U/L ALT 19 (0-31) U/L Alkaline Phosphatase 64 (39-117) U/L Albumin 3.8 (3.5-5.0) g/dL Urine 06/12/22 Range/Units 09:52 Urine Test NEGATIVE (NEGATIVE) Antibody Screen Antibody Screen NEGATIVE 06/12/22 09:38 Imaging US - abdomen: Radiologist's impression: ITS Impressions Pelvic/Transvag US 06/12/22 10:25 IMPRESSION: Distal endometrial thickness 1.5 cm with mixed echogenicity and a focal echogenic lesion is isolated which does show some associated vascularity. This could represent a polyp versus other.. Gynecologic consultation is warranted. Assessment and Plan (1) Abnormal uterine bleeding: Status: Acute Plan GC and chlamydia, BV panel and Trichomonas , discussed with the patient the finding on pelvic exam with no evidence of active vaginal bleeding and on pelvic ultrasound showing abnormal endometrium polyp versus submucosal myoma. Discussed with the patient the different causes of abnormal bleeding including thyroid disorders, uterine and ovarian pathology, endometrial hyperplasia, carcinoma and other potential causes. Recommended the following: After Completing 2 units of packed RBCs, the patient can be discharged home on iron sulfate 325 mg p.o. t.i.d., Continue Provera 10 mg p.o. q.d., follow-up in the office within 48 hours; will discuss office endometrial biopsy versus hysteroscopy D&C possible polypectomy/ myomectomy and options of treatment including but not limited to: Provera, Mirena IUD, endometrial ablation or hysterectomy. Instructed the patient to come back to emergency room in case of heavy vaginal bleeding and schedule an appointment within 48 hours for preop evaluation. Recommend the patient to have me her screening mammogram done as soon as possible since she is on Provera. All questions answered, the patient verbalized understanding and agreed with the plan Time Spent With Patient Time: Total time managing care of this patient today ____ minutes.
[2022-06-12 14:11] LABS: Appearance Urine Clear; Color Urine Yellow; Glucose Urine UA Negative (Negative); Leukocyte Esterase Urine Negative (Negative); Nitrite Urine Negative (Negative); PH 5.5 (5.0-9.0); UMIC TRIGGER UACC YES; Urine Blood Large (3+) (Negative); Urine Ketones Negative (Negative); Urine Protein Negative (Neg-Trace)
[2022-06-12 14:13] LABS: Bacteria Urine None Seen (None Seen); Hyaline Casts Urine 0-2 /LPF (0-2); WBC Urine 0-5 /HPF (0-5)
[2022-06-12 16:18] LABS: CT PCR NOT DETECTED (Not Detect.); NG PCR NOT DETECTED (Not Detect.)
== END 2022-06-12 18:07 | disposition home or self-care (01) ==
PROVIDERS: Physician Assistant; Emergency Provider Emergency Medicine; PCP Internal Medicine
DX: N93.9 Abnormal uterine and vaginal bleeding, unspecified (principal); Z20.822 Contact with and (suspected) exposure to COVID-19; Z98.51 Tubal ligation status
CPT/HCPCS: 36415; 36430; 76830; 76856; 80048; 80076; 81001; 81025; 83690; 84702; 85025; 85610; 85730; 86850; 86900; 86901; 86920; 87491; 87591; 87635; 96361; 96374; 99285; J2405; P9016

== ENCOUNTER 2022-06-14 10:35 | Outpatient (REF) | payer OTHER, SELFPAY ==
[2022-06-14 11:44] LABS: Hematocrit 31.7 % (37.0-47.0); Hemoglobin 9.7 g/dl (12.0-16.0); Mean Corpuscular HGB Conc 30.6 g/dl (31.0-35.0); Mean Corpuscular Hemoglobin 25.4 pg (27.0-33.0); Mean Platelet Volume 8.8 fL (9.4-12.3); Platelet Count 392 X10*3/uL (160-400); Red Blood Count 3.82 X10*6/uL (4.20-5.50); Red Cell Distribution Width 17.2 % (11.0-16.0); White Blood Count 8.1 X10*3/uL (4.8-10.8)
[2022-06-14 12:48] LABS: HCG Quantitative < 2 mIU/mL; TSH reflex Free T4 0.92 uIU/mL (0.32-4.0)
[2022-06-14 14:55] LABS: Syphilis Screen Nonreactive (Nonreactive)
[2022-06-15 08:53] LABS: HBsAGNum1 0.32 S/CO (0.00-0.99); HIV AB/AG Nonreactive (Nonreactive); HIV Num 1 0.05 S/CO (0.00-0.99); Hepatitis B Surface Antigen Negative (Negative); ~HepC Num1 0.07 S/CO (0.00-0.79); ~Hepatitis C Antibody Nonreactive (Nonreactive)
[2022-06-15 11:16] LABS: BV Int Neg Control Negative (Negative); BV Int Pos Control Positive (Positive)
[2022-06-17 01:54] LABS: HPV mRNA E6/E7 rflx Not Detected (Not Detected)
== END 2022-06-14 10:36 | disposition home or self-care (01) ==
LOC: HO.LNP 10:35
PROVIDERS: Visit Provider Obstetrics & Gynecology
DX: Z12.4 Encounter for screening for malignant neoplasm of cervix (principal); Z11.51 Encounter for screening for human papillomavirus (HPV); Z11.4 Encounter for screening for human immunodeficiency virus [HIV]; D06.9 Carcinoma in situ of cervix, unspecified; B96.89 Other specified bacterial agents as the cause of diseases classified elsewhere; N76.0 Acute vaginitis; N93.9 Abnormal uterine and vaginal bleeding, unspecified
CPT/HCPCS: 84443; 84702; 85027; 86780; 86803; 87340; 87389; 87480; 87510; 87624; 87660; 88142; 99212

== ENCOUNTER 2022-06-30 10:52 | Outpatient (REF) | payer OTHER, SELFPAY ==
--- NOTE | ~2022-06-30 | MM_ITS ---
EXAMINATION: MM SCREENING DIGITAL BREAST TOMOSYNTHESIS, BILATERAL CLINICAL INFORMATION: Screening. Asymptomatic. Age 46. No prior breast imaging. No known family history breast cancer. The lifetime risk of breast cancer based on the Tyrer-Cuzick Model is 7%. COMPARISON: None (current study represents initial baseline exam). TECHNIQUE: Digital breast tomosynthesis is performed in both the craniocaudal and mediolateral oblique views along with computer-aided detection (CAD). Synthesized 2D images are generated from the tomosynthesis. FINDINGS: The breasts are heterogeneously dense, which may obscure small masses (ACR BI-RADS breast composition Category c). Breast tissue composition borders on average fibroglandular. There is no significant mass or architectural abnormality. No abnormal calcifications. The axilla and skin contours are unremarkable. MM/MM tomosynthesis screening BI IMPRESSION: No mammographic evidence of malignancy. ASSESSMENT: BI-RADS 1: Negative RECOMMENDATION: Routine annual mammography screening. This patient's information was entered into a reminder system with a target due date for their next mammogram.
== END 2022-06-30 10:53 | disposition home or self-care (01) ==
LOC: HO.MAMMO 10:52
PROVIDERS: PCP Internal Medicine; Visit Provider Internal Medicine
DX: Z12.31 Encounter for screening mammogram for malignant neoplasm of breast (principal)
CPT/HCPCS: 77063; 77067

== ENCOUNTER 2022-07-04 11:58 | Outpatient (REF) | payer OTHER, SELFPAY ==
[2022-07-04 12:17] LABS: Hemoglobin 10.9 g/dl (12.0-16.0); Mean Corpuscular HGB Conc 30.3 g/dl (31.0-35.0); Mean Corpuscular Hemoglobin 26.7 pg (27.0-33.0); Mean Platelet Volume 8.5 fL (9.4-12.3); Platelet Count 490 X10*3/uL (160-400); Red Blood Count 4.09 X10*6/uL (4.20-5.50); Red Cell Distribution Width 17.3 % (11.0-16.0); White Blood Count 6.8 X10*3/uL (4.8-10.8)
== END 2022-07-04 11:59 | disposition home or self-care (01) ==
LOC: HO.LAB 11:58
PROVIDERS: PCP Internal Medicine; Visit Provider Obstetrics & Gynecology
DX: N93.9 Abnormal uterine and vaginal bleeding, unspecified (principal); Z32.02 Encounter for pregnancy test, result negative
CPT/HCPCS: 36415; 58100; 81025; 85027; 99212

== ENCOUNTER 2022-07-04 12:55 | Outpatient (REF) | payer OTHER, SELFPAY | END 2022-07-04 12:56 | disposition home or self-care (01) | LOC: HO.LNP 12:55 | PROVIDERS: Visit Provider Obstetrics & Gynecology | DX: N93.9 Abnormal uterine and vaginal bleeding, unspecified (principal) | CPT/HCPCS: 88305 ==

== ENCOUNTER → 2022-07-10 09:42 | Outpatient (BNVA) | payer OTHER, SELFPAY | PROVIDERS: PCP Internal Medicine; Visit Provider Obstetrics & Gynecology | DX: N93.9 Abnormal uterine and vaginal bleeding, unspecified (principal); D06.9 Carcinoma in situ of cervix, unspecified | CPT/HCPCS: 99212 ==

== ENCOUNTER 2022-07-14 09:34 | Day surgery (SDC) | payer OTHER, SELFPAY ==
[2022-07-12 09:19] VITALS: BMI 34.9
--- NOTE | 2022-07-13 09:53 | P.CONAN_ITS ---
Documented by User: Aleshia Pride NP 07/13/22 09:55 HPI - Anesthesia Eval Consult details Narrative: 46yo F for D&C Hysteroscopy with endometrial ablation,poss polypectomy,poss myomectomy PMFSH Active Problems Active Problems: All Active Problems (Updated 07/10/22 @ 10:16 by Warren Ho MD) Bacterial vaginosis (Acute) YELITZA III (cervical intraepithelial neoplasia grade III) with severe dysplasia (Acute) Abnormal uterine bleeding (Acute) COVID-19 (Acute) Past Medical History Medical History Asthma YELITZA III (cervical intraepithelial neoplasia grade III) with severe dysplasia Surgical History Surgical History Hx of tubal ligation Social History Social History Alcohol intake: current Alcohol intake frequency: holidays/special occasions only Alcohol type: beer and wine Advance Directives: No Advance Directives Information Provided: Yes Meds Allergies Allergy/AdvReac Type Severity Reaction Status Date / Time SEAFOOD Allergy Intermediate UNKNOWN Uncoded 07/10/22 09:52 Home Medications Medication Instructions Recorded Confirmed Last Taken Type albuterol sulfate 90 mcg/actuation 1 puff inhalation Q4H PRN Wheezing 05/29/20 06/12/22 Unknown History aerosol inhaler naproxen 500 mg tablet 500 mg PO BID 06/12/22 06/12/22 Unknown History Exam Exam Date and Time: July 13, 2022 0953 Height,Weight and Vital Signs: Height 5 ft 2 in Weight 86.636 kg Pertinent Lab Results Pertinent Lab Results: Laboratory Tests 06/12/22 07/04/22 09:38 12:07 WBC 6.8 Hgb 10.9 L Hct 36.0 L Plt Count 490 H Sodium 138 Potassium 3.8 Chloride 108 Carbon Dioxide 24 BUN 12 Creatinine 0.76 Assessment and Plan Assessment Anesthesia Assessment: Chart Reviewed Documented by User: Tayler Overton MD 07/14/22 10:21 [facility] Past Medical History Medical History Asthma YELITZA III (cervical intraepithelial neoplasia grade III) with severe dysplasia Surgical History Surgical History Hx of tubal ligation History of Problems with Anesthesia: No Social History Social History Alcohol intake: current Alcohol intake frequency: holidays/special occasions only Alcohol type: beer and wine Advance Directives: No Advance Directives Information Provided: Yes Meds Allergies Allergy/AdvReac Type Severity Reaction Status Date / Time SEAFOOD Allergy Intermediate UNKNOWN Uncoded 07/10/22 09:52 Home Medications Medication Instructions Recorded Confirmed Last Taken Type albuterol sulfate 90 mcg/actuation 1 puff inhalation Q4H PRN Wheezing 05/29/20 06/12/22 Unknown History aerosol inhaler naproxen 500 mg tablet 500 mg PO BID 06/12/22 06/12/22 Unknown History Exam Airway Mallampati Class: II TM Dist: >3cm Neck ROM: Full Denture: Upper Partial: Upper Loose/Missing/Broken Teeth: No Heart: RRR Lungs: CTA Assessment and Plan Assessment Anesthesia Assessment: Anesthesia Plan Discussed Final Anesthetic Review History of Problems with Anesthesia: No NPO: Yes ASA Class: II Final Preanesthetic Review: Meds/Allgs Chart Reviewed, Consent Obtained/Reviewed and Anes Risks/Benef Reviewed Patient Risk: Low Procedure Risk: Low Anesthetic Plan Anesthetic Plan: GA Disposition: Standard PACU
[2022-07-14] VITALS (9 sets, daily range): BP systolic 120–160; BP diastolic 83–100; PULSE 54–85; RESP 16–20; TEMP 35.8–37.1; O2SAT 97–100
[2022-07-14] MEDS: Lactated Ringers 1,000 ML 100 ML IVCONT (10:20)
--- NOTE | 2022-07-14 10:22 | MHC.SHP ---
Pre-Procedural Eval Section A Date of Service: 07/14/22 The patient is an INPATIENT: No Changes since office visit: No Cold of Flu in the past 2 weeks, No New Medical Problems, No Changes in Medication and No Patient answered all questions The History & Physical has been completed within 30 days and I have reviewed it.: Yes Section B Chief Complaint: Abnormal uterine and vaginal bleeding, unspecified Allergies: Allergies Allergy/AdvReac Type Severity Reaction Status Date / Time SEAFOOD Allergy Intermediate UNKNOWN Uncoded 07/10/22 09:52 Plan Diagnosis/Plan: Unchanged I have reviewed the history and physical and performed a pertinent physical examination on my patient. No changes have occurred unless specified. Time Spent With Patient Time: Total time managing care of this patient today ____ minutes.
[2022-07-14 10:42] LABS: UPreg QC Valid YES; Urine Pregnancy NEGATIVE (NEGATIVE)
--- NOTE | 2022-07-14 11:15 | P.BOP_ITS ---
Brief Operative Note Date of Service: 07/14/22 Pre-op diagnosis: Abnormal uterine bleeding and abnormal endometrium by ultrasound Post-op diagnosis: same (Endometrial polyp) Procedure: Hysteroscopy D&C, Polypectomy NovaSure endometrial ablation Surgeon: Warren Ho MD Anesthesia: GLMA Was an Electrical Line Worker used for this Procedure?: No Estimated blood loss (mL): 0 Pathology: other (Endometrial Scrapping. Polyp) Condition: stable Disposition: PACU
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
[2022-07-14] MEDS: fentaNYL citrate/PF 100 MCG/2 ML VIAL 25 MCG IVPUSH ×4 (11:19→11:34)
[2022-07-14] MEDS: oxyCODONE HCl Immed Release 5 MG TABLET PO (11:30)
[2022-07-14] MEDS: Acetaminophen 325 MG TABLET 650 MG PO (11:30)
== END 2022-07-14 12:47 ==
LOC: HO.SSS 09:35
PROVIDERS: PCP Internal Medicine; Visit Provider Obstetrics & Gynecology
PROC: 0UDB8ZZ Extraction of Endometrium, Via Natural or Artificial Opening Endoscopic (ICD-10-PCS; CPT 58558; principal; 2022-07-14 11:30)
DX: N93.9 Abnormal uterine and vaginal bleeding, unspecified (principal); D06.9 Carcinoma in situ of cervix, unspecified; N71.1 Chronic inflammatory disease of uterus; N76.0 Acute vaginitis; J45.909 Unspecified asthma, uncomplicated; Z98.51 Tubal ligation status; Z79.899 Other long term (current) drug therapy; Z79.1 Long term (current) use of non-steroidal anti-inflammatories (NSAID)
CPT/HCPCS: 58558; 81025; 88305; J1100; J2250; J2405; J2550; J3010

== ENCOUNTER → 2022-07-31 15:15 | Outpatient (BNVA) | payer OTHER, SELFPAY | PROVIDERS: PCP Internal Medicine; Visit Provider Obstetrics & Gynecology | DX: N93.9 Abnormal uterine and vaginal bleeding, unspecified (principal) | CPT/HCPCS: 99212 ==

== ENCOUNTER 2022-09-09 03:35 | Emergency (ER) | payer OTHER, SELFPAY ==
--- NOTE | ~2022-09-09 | XR_ITS ---
EXAMINATION: XR HAND, RIGHT CLINICAL INFORMATION: Pain COMPARISON: None TECHNIQUE: PA, lateral, and oblique views of the right hand. FINDINGS: The bones and soft tissues are normal. No fracture. Alignment is anatomic. Joint spaces are maintained. No erosions or soft tissue calcifications. XR/XR hand RT 2V IMPRESSION: Normal right hand.
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
[2022-09-09 03:55] VITALS: BP 148/99; BP 156/110; PULSE 78; PULSE 89; RESP 18; TEMP 36.6; O2SAT 100; O2SAT 98; BMI 34.0
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
[2022-09-09] MEDS: Acetaminophen 325 MG TABLET 975 MG PO (05:03)
[2022-09-09 05:41] VITALS: BP 140/95; PULSE 74; RESP 18; TEMP 37; O2SAT 98
== END 2022-09-09 07:23 | disposition home or self-care (01) ==
PROVIDERS: Emergency Provider Emergency Medicine; PCP Internal Medicine
DX: S00.83XA Contusion of other part of head, initial encounter (principal); Y04.2XXA Assault by strike against or bumped into by another person, initial encounter; Y93.89 Activity, other specified; Y92.810 Car as the place of occurrence of the external cause; Y99.9 Unspecified external cause status; Z72.89 Other problems related to lifestyle; Z69.11 Encounter for mental health services for victim of spousal or partner abuse
CPT/HCPCS: 70450; 70486; 72125; 73120; 99284

== ENCOUNTER 2022-10-03 14:44 | Outpatient (REF) | payer OTHER, SELFPAY ==
[2022-10-03 15:05] LABS: MANUAL DIFF FLAG NO
[2022-10-03 15:39] LABS: Basophils Percent Auto 0.7 % (0-2); Eosinophils Absolute Auto 0.1 X10*3/uL (0.0-0.4); Eosinophils Percent Auto 0.8 % (0-4); Hematocrit 40.8 % (37.0-47.0); Hemoglobin 12.5 g/dl (12.0-16.0); Imm Gran Abs Auto 0.01 X10*3/uL (0.00-0.03); Imm Gran Pct Auto 0.2 % (0.0-0.4); Lymphocytes Absolute Auto 2.1 X10*3/uL (1.2-4.9); Lymphocytes Percent Auto 35.5 % (20-40); Mean Corpuscular HGB Conc 30.6 g/dl (31.0-35.0); Mean Corpuscular Hemoglobin 24.6 pg (27.0-33.0); Mean Corpuscular Volume 80.2 fL (80.0-98.0); Mean Platelet Volume 9.4 fL (9.4-12.3); Monocytes Absolute Auto 0.4 X10*3/uL (0.1-1.2); Monocytes Percent Auto 6.2 % (2-11); Neutrophils Absolute Auto 3.4 x10*3/uL (2.0-8.3); Neutrophils Percent Auto 56.6 % (45-73); Platelet Count 405 X10*3/uL (160-400); Red Blood Count 5.09 X10*6/uL (4.20-5.50); Red Cell Distribution Width 16.9 % (11.0-16.0)
[2022-10-03 16:25] LABS: Alanine Aminotransferase 29 U/L (0-31); Albumin Level 4.3 g/dL (3.5-5.0); Alkaline Phosphatase 85 U/L (39-117); Anion Gap 12 (12-20); Aspartate Amino Transferase 24 U/L (5-31); Bilirubin Total 0.4 mg/dL (0.0-1.0); Blood Urea Nitrogen 9 mg/dL (9-16); Calcium 9.4 mg/dL (8.4-10.2); Carbon Dioxide 24 mmol/L (22-29); Chloride 106 mmol/L (96-108); Cholesterol 240 mg/dL; Estimated Glomerular Filt Rate > 60; Glucose Random 86 mg/dL (60-115); HDL Cholesterol 55 mg/dL; LDL Cholesterol Calculated 165 mg/dl; Potassium 4.4 mmol/L (3.3-5.1); Sodium 138 mmol/L (135-145); Total Protein 7.5 g/dL (6.5-8.0); Triglycerides 101 mg/dL
== END 2022-10-03 14:45 | disposition home or self-care (01) ==
LOC: HO.LAB 14:44
PROVIDERS: PCP Internal Medicine; Visit Provider Internal Medicine
DX: Z00.00 Encounter for general adult medical examination without abnormal findings (principal); J45.909 Unspecified asthma, uncomplicated; N89.8 Other specified noninflammatory disorders of vagina
CPT/HCPCS: 36415; 80053; 80061; 85025

== ENCOUNTER 2023-01-25 16:33 | Outpatient (REF) | payer OTHER, SELFPAY ==
[2023-01-26 02:52] LABS: CT PCR NOT DETECTED (Not Detect.); NG PCR NOT DETECTED (Not Detect.)
[2023-01-26 07:48] LABS: Syphilis Screen Nonreactive (Nonreactive)
[2023-01-26 08:51] LABS: HIV AB/AG Nonreactive (Nonreactive); HIV Num 1 0.05 S/CO (0.00-0.99)
== END 2023-01-25 16:34 | disposition home or self-care (01) ==
LOC: HO.LAB 16:33
PROVIDERS: PCP Internal Medicine; Visit Provider Internal Medicine
DX: Z11.4 Encounter for screening for human immunodeficiency virus [HIV] (principal); Z11.3 Encounter for screening for infections with a predominantly sexual mode of transmission; H60.91 Unspecified otitis externa, right ear
CPT/HCPCS: 0353U; 86780; 87389; 87491; 87591

== ENCOUNTER 2023-03-14 13:55 | Outpatient (REF) | payer OTHER, SELFPAY ==
[2023-03-15 15:18] LABS: CT PCR NOT DETECTED (Not Detect.); NG PCR NOT DETECTED (Not Detect.)
== END 2023-03-14 13:56 | disposition home or self-care (01) ==
LOC: HO.LNP 13:55
PROVIDERS: Visit Provider Internal Medicine
DX: Z11.3 Encounter for screening for infections with a predominantly sexual mode of transmission (principal); N30.00 Acute cystitis without hematuria
CPT/HCPCS: 0353U; 87086

== ENCOUNTER 2023-04-05 13:55 | Outpatient (REF) | payer OTHER, SELFPAY | END 2023-04-05 13:56 | disposition home or self-care (01) | LOC: HO.LNP 13:55 | PROVIDERS: PCP Internal Medicine; Visit Provider Advanced Practice Midwife | DX: N89.8 Other specified noninflammatory disorders of vagina (principal); R32 Unspecified urinary incontinence; R35.0 Frequency of micturition | CPT/HCPCS: 0353U; 81003; 87480; 87510; 87660; 99212 ==

== ENCOUNTER 2023-04-05 13:55 | Outpatient (AMB) | payer OTHER, SELFPAY ==
--- NOTE | 2023-04-05 14:16 | MHC.OFFVIS ---
Intake Vital Signs 04/05/23 14:18 Height 5 ft 4 in Weight 189 lb BMI 32.4 BP 132/84 Intake Visit Reasons: ? vaginal infection Intake Note: having incontinence issues and also vaginal itch and odor The patient agreed to use of a medical office supervisor during this encounter. Scribed for CALDERON Murrell by Chely Wang, medical office supervisor, on 04/05/2023 at 2:31 pm EST. First Helper Required: No Information Interpreted: non-clinical & clinical Fire Extinguisher Repairer: Fire Extinguisher Repairer Present (Devaughn) Allergies SEAFOOD Allergy (Intermediate, Uncoded 04/05/23 14:20) UNKNOWN Is last menstrual period known: Yes Last menstrual period: 03/16/23 Post menopausal: No HPI HPI Comments History of Present Illness Details She is here today with complaints of vaginal odor and not being able to hold in urine with frequent urination. Reports hydrating with water and hx of UTI 2 weeks ago; has been using internal; RX cream by PCP. [facility] Medical History (Updated 04/05/23 @ 14:35 by Chely Wang) Frequency of urination Urinary incontinence in female YELITZA III (cervical intraepithelial neoplasia grade III) with severe dysplasia Asthma Surgical History Hx of tubal ligation Social History Alcohol intake: current Alcohol intake frequency: a few times a month Alcohol type: beer and wine Patient Tobacco Use Status: Never used Tobacco Female Reproductive History Menstrual Age of Menarche: 13 Duration of menses: 3-5 days Date of last menstrual period: 03/16/23 control method: permanent sterilization Total pregnancies: 5 Full term: 5 Number of Living Children: 5 Date of last pap smear: 06/14/22 (negative) Physical Exam Vital Signs: Last Vital Signs BP 132/84 04/05/23 14:18 BMI result Body Mass Index 32.4 Const General: cooperative, healthy appearing, comfortable, no acute distress, well developed, alert and awake Other: General: Yes bladder normal to palpation External Female Exam: normal external appearance and normal appearance of the urethra Speculum Exam - Vagina: normal appearance of the vagina, normal palpation and normal vaginal discharge Speculum Exam - Cervix: normal appearance of the cervix and normal palpation Bimanual exam- vagina & uterus: normal bimanual exam, normal palpation, bladder normal to palpation and normal palpation Bimanual Exam- Adnexa, other: normal adnexae and no masses Results AMB Urinalysis, Automated UA Leukoctes 0 Mychal/uL Last Edit by ЕКАТЕРИНА Kruse on 04/05/23 14:48 UA Nitrite Negative Last Edit by Devaughn Huffman Marta on 04/05/23 14:48 UA Urobilinogen 0 mg/dL Last Edit by Devaughn Huffman [facility] on 04/05/23 14:48 UA Protein 0 mg/dL Last Edit by Devaughn Huffman Marta on 04/05/23 14:48 UA pH 5.5 Last Edit by Devaughn Huffman [facility] on 04/05/23 14:48 UA Blood 0 Marcellus/uL Last Edit by Devaughn Huffman Marta on 04/05/23 14:48 UA Specific [place] 1.025 Last Edit by Devaughn Huffman Marta on 04/05/23 14:48 UA Ketone Negative Last Edit by Devaughn Huffman Marta on 04/05/23 14:48 UA Bilirubin 0 mg/dL Last Edit by Devaughn Huffman Marta on 04/05/23 14:48 UA Glucose 0 mg/dL Last Edit by Devaughn Huffman Marta on 04/05/23 14:48 Results Reviewed Results Reviewed: Laboratory Last Values Urine pH (Auto) 5.5 04/05/23 14:45 Specific [place] (Auto) 1.025 04/05/23 14:45 Urine Protein (Auto) 0 mg/dL 04/05/23 14:45 Glucose (UA)(Auto) 0 mg/dL 04/05/23 14:45 Urine Ketones (Auto) Negative 04/05/23 14:45 Urine Blood (Auto) 0 Marcellus/uL 04/05/23 14:45 Urine Nitrite (Auto) Negative 04/05/23 14:45 Urine Bilirubin (Auto) 0 mg/dL 04/05/23 14:45 Urine Urobilinogen (Auto) 0 mg/dL 04/05/23 14:45 Leukocyte Esterase (Auto) 0 Mychal/uL 04/05/23 14:45 Assessment & Plan Assessment & Plan (1) Vaginal odor: Code(s): N89.8 - Other specified noninflammatory disorders of vagina Plan: Discussed: BV testing and GC/CT panel done today. Await results and treat accordingly. Advised to clean with water only, no soaps to the area, dry well and wear cotton underwear. No intimacy until symptoms are resolved. All of her questions and concerns were addressed to the best of my ability and shared decision making. She is agreeable to plan of care. (2) Urinary incontinence in female: Code(s): R32 - Unspecified urinary incontinence Plan: Referral to Physical Therapy. (3) Frequency of urination: Code(s): R35.0 - Frequency of micturition Plan: Advised to continue hydrating well with water but mainly hydrate during the day to avoid voiding during bedtime. Orders: Orders Bacterial Vaginosis Panel Today N89.8 - Other specified noninflammatory disorders of vagina CT NG by PCR Today N89.8 - Other specified noninflammatory disorders of vagina AMB Urinalysis Automated Today R32 - Unspecified urinary incontinence, R35.0 - Frequency of micturition Referrals Pelvic Website Optimization Strategist Referral R32 - Unspecified urinary incontinence Coding Level of Care Code Est Pt Level 3 (49952) Diagnoses Vaginal odor N89.8 Urinary incontinence in female R32 Frequency of urination R35.0
[2023-04-05 14:18] VITALS: BP 132/84; BMI 32.4
== END 2023-04-05 15:06 | disposition home or self-care (01) ==
PROVIDERS: PCP Internal Medicine; Visit Provider Advanced Practice Midwife
DX: N89.8 Other specified noninflammatory disorders of vagina (principal); R32 Unspecified urinary incontinence; R35.0 Frequency of micturition
CPT/HCPCS: 99213

== ENCOUNTER 2023-09-10 11:35 | Outpatient (REF) | payer OTHER, SELFPAY ==
--- NOTE | ~2023-09-10 | XR_ITS ---
EXAMINATION: X-ray bilateral knees X-ray standing bilateral knees CLINICAL INFORMATION: Pain. COMPARISON: Radiograph right knee 08/12/2020. TECHNIQUE: 2 views of each knee. Single AP standing view of both knees. FINDINGS: No fracture or subluxation. Mild joint space narrowing of the medial and patellofemoral compartments in both knees. No osseous erosions. No unusual soft tissue calcifications. Trace joint effusion in the left knee. XR/XR knee standing BI IMPRESSION: 1. No acute fractures or malalignment. 2. Mild degenerative osteoarthritis of both knees. 3. Trace joint effusion in the left knee.
--- NOTE | ~2023-09-10 | XR_ITS ---
EXAMINATION: X-ray bilateral knees X-ray standing bilateral knees CLINICAL INFORMATION: Pain. COMPARISON: Radiograph right knee 08/12/2020. TECHNIQUE: 2 views of each knee. Single AP standing view of both knees. FINDINGS: No fracture or subluxation. Mild joint space narrowing of the medial and patellofemoral compartments in both knees. No osseous erosions. No unusual soft tissue calcifications. Trace joint effusion in the left knee. XR/XR knee LT 2V IMPRESSION: 1. No acute fractures or malalignment. 2. Mild degenerative osteoarthritis of both knees. 3. Trace joint effusion in the left knee.
--- NOTE | ~2023-09-10 | XR_ITS ---
EXAMINATION: X-ray bilateral knees X-ray standing bilateral knees CLINICAL INFORMATION: Pain. COMPARISON: Radiograph right knee 08/12/2020. TECHNIQUE: 2 views of each knee. Single AP standing view of both knees. FINDINGS: No fracture or subluxation. Mild joint space narrowing of the medial and patellofemoral compartments in both knees. No osseous erosions. No unusual soft tissue calcifications. Trace joint effusion in the left knee. XR/XR knee RT 2V IMPRESSION: 1. No acute fractures or malalignment. 2. Mild degenerative osteoarthritis of both knees. 3. Trace joint effusion in the left knee.
== END 2023-09-10 11:36 | disposition home or self-care (01) ==
LOC: HO.HOSX 11:35
PROVIDERS: Visit Provider Orthopaedic Surgery
DX: M25.561 Pain in right knee (principal); M22.2X1 Patellofemoral disorders, right knee; M25.562 Pain in left knee
CPT/HCPCS: 73560; 73565; 99202

== ENCOUNTER 2023-09-10 12:29 | Outpatient (AMB) | payer OTHER, SELFPAY ==
[2023-09-10 12:42] VITALS: BMI 32.4
--- NOTE | 2023-09-10 12:42 | A.OFFVIS_ITS ---
Intake Vital Signs 09/10/23 12:42 Height 5 ft 4 in Weight 189 lb BMI 32.4 Intake Visit Reasons: b/l knee pain Intake Note: Eugenia is a 47 year old female who presents today as a new patient with complaints of bilateral knee pain. Patient reports that she has had ongoing bilateral knee pain for about 5 years now. She has history of cortisone i njection which was very helpful. She is doing stationary biking and yoga for exercise. Increased pain at the base of the patella when going down stairs. The right is worse than the left and is feeling unstable. Allergies SEAFOOD Allergy (Intermediate, Uncoded 09/10/23 12:46) UNKNOWN HPI b/l knee pain HPI Details Eugenia is a 47 year old female who presents today as a new patient with complaints of bilateral knee pain. Patient reports that she has had ongoing bilateral knee pain for about 5 years now. She has history of cortisone injection which was very helpful. She is doing stationary biking and yoga for exercise. Increased pain at the base of the patella when going down stairs. The right is worse than the left and is feeling unstable. She denies injury. She states the pain in anterior. [facility] Medical History Frequency of urination Urinary incontinence in female YELITZA III (cervical intraepithelial neoplasia grade III) with severe dysplasia Asthma Surgical History Hx of tubal ligation Social History (Updated 09/10/23 @ 12:47 by Shawna Calvo CMA) Alcohol intake: current Alcohol intake frequency: a few times a month Alcohol type: beer and wine Patient Tobacco Use Status: Never used Tobacco Current occupational status: unemployed Female Reproductive History Menstrual Age of Menarche: 13 Physical Exam Vital Signs: BMI result Body Mass Index 32.4 Const General: cooperative, healthy appearing, no acute distress and well groomed Orientation/consciousness: oriented to person and oriented to place HEENT Head: Yes normal to inspection, Yes normocephalic and Yes atraumatic Eyes General: appearance normal, both eyes and all related structures Alignment and Position: alignment normal Conjunctivae: conjunctivae normal EOM: EOMs intact bilaterally Neck Neck: Yes normal visual inspection and Yes trachea midline Resp Other: No rerpiratory distress Effort & Inspection: normal respiratory effort and able to speak in complete sentences Cardio Other: Palpable radial pulse with no appreciable rythmic abnormalities GI Other: No abdominal distension Back/Spine/Pelvis Cervical Spine: normal cervical lordosis and cervical ROM normal Skin General skin exam: no rashes or lesions noted Neuro General: oriented to person, oriented to place and gait normal Extrem Other: nl alignement Retropatellar ttp right knee + patellar grind + dynamic step down Results Reviewed Results Reviewed: I personally reviewed relevant radiographs. Mild lateralization of patella but otherwise unremarkable Assessment & Plan Assessment & Plan (1) Patellofemoral pain syndrome of right knee: Code(s): M22.2X1 - Patellofemoral disorders, right knee Plan: Right PFP syndrome PT. Discussed findings and recommend stair avoidance and activity modification. NSAIDs and ice. Plan Physical Therapy Orders: Orders XR knee standing BI Today M25.569 - Pain in unspecified knee XR knee RT 2V Today M25.569 - Pain in unspecified knee XR knee LT 2V Today M25.569 - Pain in unspecified knee PT Evaluation and Treatment Today M22.2X1 - Patellofemoral disorders, right knee Coding Level of Care Code New Pt Level 3 (87120) Diagnoses Patellofemoral pain syndrome of right knee M22.2X1
== END 2023-09-10 13:14 | disposition home or self-care (01) ==
PROVIDERS: PCP Internal Medicine; Visit Provider Orthopaedic Surgery
DX: M22.2X1 Patellofemoral disorders, right knee (principal); M25.562 Pain in left knee
CPT/HCPCS: 99203

== ENCOUNTER 2023-10-16 13:10 | Outpatient (REF) | payer OTHER, SELFPAY ==
[2023-10-17 05:14] LABS: CT PCR NOT DETECTED (Not Detect.); NG PCR NOT DETECTED (Not Detect.)
[2023-10-17 13:55] LABS: BV Int Neg Control Negative (Negative); BV Int Pos Control Positive (Positive)
== END 2023-10-16 13:11 | disposition home or self-care (01) ==
LOC: HO.LNP 13:10
PROVIDERS: PCP Internal Medicine; Visit Provider Obstetrics & Gynecology
DX: N76.0 Acute vaginitis (principal); B96.89 Other specified bacterial agents as the cause of diseases classified elsewhere; N39.41 Urge incontinence; R35.1 Nocturia
CPT/HCPCS: 0353U; 87480; 87510; 87660; 99212

== ENCOUNTER 2023-10-16 13:10 | Outpatient (AMB) | payer OTHER, SELFPAY ==
--- NOTE | 2023-10-16 13:35 | A.OFFVIS_ITS ---
Intake Vital Signs 10/16/23 13:37 Height 5 ft 4 in Weight 187 lb 6.287 oz BMI 32.2 BP 110/78 Intake Visit Reasons: ? BV Public Policy Analyst Required: No Information Interpreted: non-clinical & clinical Spotlight Operator: Spotlight Operator Present (Anahy WILLAMS) Accompanied by: Self / Same As Patient Allergies SEAFOOD Allergy (Intermediate, Uncoded 10/16/23 13:37) UNKNOWN HPI HPI Comments History of Present Illness Details Presenting complaining of vaginal discharge associated with foul odor, was prescribed metronidazole PCP and the patient is having improvement in her symptoms. In addition the patient is complaining of a leakage of urine upon coughing, laughing or lifting heavy object associated with urgency and urge incontinence and nocturia. PFS Medical History Frequency of urination Urinary incontinence in female YELITZA III (cervical intraepithelial neoplasia grade III) with severe dysplasia Asthma Surgical History Hx of tubal ligation Social History Alcohol intake: current Alcohol intake frequency: a few times a month Alcohol type: beer and wine Patient Tobacco Use Status: Never used Tobacco Current occupational status: unemployed Female Reproductive History Menstrual Age of Menarche: 13 Review of Systems Const All systems reviewed & are unremarkable except as noted in HPI and below Physical Exam Vital Signs: Last Vital Signs BP 110/78 10/16/23 13:37 BMI result Body Mass Index 32.2 General: Yes no CVA tenderness External Female Exam: normal external appearance and normal appearance of the urethra Speculum Exam - Vagina: normal appearance of the vagina, normal palpation, no lesions and no masses Speculum Exam - Cervix: normal appearance of the cervix, normal palpation, no lesions, no masses and nontender Bimanual exam- vagina & uterus: normal bimanual exam, normal palpation, uterine size normal, normal palpation, uterine shape normal, No Cervical tenderness present and non-tender Bimanual Exam- Adnexa, other: normal adnexae Back/Spine/Pelvis Back: no CVA tenderness Assessment & Plan Assessment & Plan (1) Bacterial vaginosis: Code(s): N76.0 - Acute vaginitis; B96.89 - Other specified bacterial agents as the cause of diseases classified elsewhere Plan: GC and chlamydia cultures with BV panel taken. The patient is on Flagyl 500 mg p.o. b.i.d. x 7 days, Instructions given to the patient to refrain from sexual activity or to use condoms consistently and correctly during the BV treatment regimen, not to douch, it might increase the risk for relapse, and to call if sy mptoms persist or recur. (2) Urinary incontinence in female: Code(s): R32 - Unspecified urinary incontinence Plan: Discussed with the patient the different types of Urine incontinence, stress urinary incontinence, intrinsic sphincter deficiency, overactive bladder and its work up. We will refer to Urology. All questions answered, the patient verbalized understanding. Orders: Referrals Urology Referral R32 - Unspecified urinary incontinence Coding Level of Care Code Est Pt Level 3 (68388) Diagnoses Bacterial vaginosis N76.0; B96.89 Urinary incontinence in female R32
[2023-10-16 13:37] VITALS: BP 110/78; BMI 32.2
== END 2023-10-16 14:24 | disposition home or self-care (01) ==
PROVIDERS: PCP Internal Medicine; Visit Provider Obstetrics & Gynecology
DX: N76.0 Acute vaginitis (principal); B96.89 Other specified bacterial agents as the cause of diseases classified elsewhere; R32 Unspecified urinary incontinence
CPT/HCPCS: 99213

== ENCOUNTER 2023-10-16 15:00 | Outpatient (RCR) | payer OTHER, SELFPAY ==
--- NOTE | 2023-09-26 14:53 | MHC.PT.EP ---
[facility] [place] Office [place] Office [place] Office [address] Mark Michel [address] [phone] F: [phone] F: [phone] F: [phone] F: [phone] Physical Therapy Plan of Care Date of Evaluation: 09/26/23 Date of Surgery: N/A Diagnosis: patellofemoral disorders, right knee (RL) Assessment: pt is a 47 y/o female presenting to physical therapy w/ referring diagnosis of patellofemoral disorders, right knee. pt presents w/ widespread pain throughout body. Her knee symptoms seem to be the most pronounced and progressing to the point of instability. Impairments include pain, decreased range of motion, decreased strength, impaired functional mobility, impaired postural awareness, and altered ambulation mechanics. pt is a fair candidate for skilled PT due to age, potential remediation of impairments, typical disease/condition progression and prognosis, comorbidities, and motivation. pt would benefit from skilled PT intervention to provide a tailored strengthening and stretching exercise program, functional training, gait training, postural re-training, neuromuscular re-education, modalities as needed for pain, equipment safety demonstration. Frequency and Duration: The patient will be seen 2x/wk for 4 wks Short Term Goals: pt will be I w/ HEP to promote self-management of condition. pt will improve B knee extension MMT by at least 1 grade to promote ease in stair navigation. Longterm Goals: pt will report a statistically significant improvement in self-reported outcome measure, LEFI, to promote return to PLOF. pt will ascend/descend 12 stairs using one railing using reciprocal pattern to promote ease in accessing bedroom/bathroom. Treatment Plan: Modalities to reduce pain, spasms and effusion. Manual therapy to restore motion and function. Therapeutic exercise to improve strength and flexibility. Neuromuscular re-education for posture and balance. Therapeutic activities to return to functional activities of daily living. Electronically signed by: Zofia Beaver PT, DPT Please sign and return to therapist. Thank you for your referral.
--- NOTE | 2023-11-12 10:37 | MHC.PT.DC ---
[place] Office [place] Office [place] Office [address] Mark Michel 140 [facility] [phone] F: [phone] F: [phone] F: [phone] F: [phone] Physical Therapy Discharge Report Diagnosis: patellofemoral disorders, right knee (RL) Date of Surgery: N/A Date of Evaluation: 09/26/23 Date of Discharge: 11/12/23 Treatments to Date: 3 Cancellations to Date: 7 No Shows to Date: 1 Discharge Status: Visit Non-compliance Discharge Summary: The patient is being discharged for non-compliance. When she did attend she had severe anxiety regarding performing gentle therapeutic exercises and would often make groaning sounds or facial grimacing. Electronically signed by: Zofia Beaver PT, DPT Please sign and return to therapist. Thank you for your referral.
== END 2023-11-12 10:37 | disposition home or self-care (01) ==
LOC: HO.PT 15:00
PROVIDERS: PCP Internal Medicine; Visit Provider Orthopaedic Surgery
DX: M22.2X1 Patellofemoral disorders, right knee (principal)
CPT/HCPCS: 97110; 97161

== ENCOUNTER 2023-12-04 08:04 | Outpatient (REF) | payer OTHER, SELFPAY ==
--- NOTE | ~2023-12-04 | XR_ITS ---
EXAMINATION: XR WRIST, RIGHT CLINICAL INFORMATION: Pain in unspecified wrist COMPARISON: Right hand 09/09/2022 TECHNIQUE: PA, lateral, and oblique views of the right wrist. FINDINGS: The bones are intact. No fracture. Alignment is anatomic with normal joint spaces. No erosions or abnormal soft tissue calcifications. XR/XR wrist RT min 3V IMPRESSION: No bony abnormality.
== END 2023-12-04 08:05 | disposition home or self-care (01) ==
LOC: HO.HOSX 08:04
PROVIDERS: Visit Provider Physician Assistant
DX: M54.12 Radiculopathy, cervical region (principal)
CPT/HCPCS: 73110; 99212

== ENCOUNTER 2023-12-04 13:58 | Outpatient (AMB) | payer OTHER, SELFPAY ==
--- NOTE | 2023-12-04 14:21 | A.OFFVIS_ITS ---
Intake Visit Reasons: New prob - Right Hand Pain - Numbness & Tingling Intake Note: Eugenia is a 48 year old right hand dominant female who presents today for a evaluation of her right hand numbness. Patient reports on 12/20/22 she was handcuffed for 12 hrs and she needed to go to the hospital due having a lot of numbness and swelling. She states that her numbness has been off and for 6 months. Patient expresses her right hand is worse. Numbness is worse at night which radiates up to her neck and when she is gripping an object for too long. Allergies SEAFOOD Allergy (Intermediate, Uncoded 10/16/23 13:37) UNKNOWN HPI HPI New prob - Right Hand Pain - Numbness & Tingling: Details: 48-year-old right hand dominant female who presents in the office today for an evaluation of right hand numbness. While in the office, the patient reports on 12/20/2022 she was handcuffed for 12 hours, causing her to have numbness and edema in the right hand. This caused her to present to the ED. She states the numbness has been intermittent for the past 6 months, since 06/2023. Patient confirms numbness bilaterally with the right hand being worse than the left hand. She states the numbness increases at night and radiates up to her neck and when gripping objects. COUNT INCLUDES THE [facility] Medical History Frequency of urination Urinary incontinence in female YELITZA III (cervical intraepithelial neoplasia grade III) with severe dysplasia Asthma Surgical History Hx of tubal ligation Social History Alcohol intake: current Alcohol intake frequency: a few times a month Alcohol type: beer and wine Patient Tobacco Use Status: Never used Tobacco Current occupational status: unemployed Female Reproductive History Menstrual Age of Menarche: 13 Review of Systems Const All systems reviewed & are unremarkable except as noted in HPI and below Physical Exam Const General: cooperative and no acute distress Orientation/consciousness: patient oriented x3 Resp Effort & Inspection: normal respiratory effort and able to speak in complete sentences Cardio Peripheral pulses: Peripheral pulses 2+ throughout Skin General skin exam: no rashes or lesions noted Neuro General: patient oriented x3 Extrem Other: Right hand: Normal to inspection. No ecchymosis, erythema, or edema. Able to pe rform full finger flexion, extension, abduction, adduction, finger cross, okay sign, and thumbs up without deficit. Able to make a closed fist. Positive Tinel?s at the carpal tunnel bilaterally. Sensation intact. Capillary refill is brisk. Radial pulse intact. 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 Vickers is a 48-year-old right hand dominant female who presents in the office today for an evaluation of right hand numbness. While in the office, the patient reports on 12/20/2022 she was handcuffed for 12 hours, causing her to have numbness and edema in the right hand. This caused her to present to the ED. She states the numbness has been intermittent for the past 6 months, since 06/2023. Patient confirms numbness bilaterally with the right hand being worse than the left hand. She states the numbness increases at night and radiates up to her neck and when gripping objects. Patient will be referred for an EMG study to further evaluate the right upper extremity. The patient will call the office after the EMG is obtained. Follow-up will be after the EMG study is obtained, or sooner if needed. X-rays of the right wrist which were obtained while in the office today and were reviewed by me, Li Mejia PA-C, revealed no acute fracture or dislocation. Orders: Orders XR wrist RT min 3V 12/04/23 M25.539 - Pain in unspecified wrist NE electromyogram (EMG) 12/04/23 G56.30 - Lesion of radial nerve, unspecified upper limb, M54.12 - Radiculopathy, cervical region Patient Instructions: Scribed by Sariah Moore expert medical writer, for Li Mejia PA-C on 12/04/2023 at 2:05 pm, EST. Coding Level of Care Code Est Pt Level 4 (20651) Diagnoses Cervical radicular pain M54.12 Wartenberg syndrome G56.30
== END 2023-12-04 14:36 | disposition home or self-care (01) ==
PROVIDERS: PCP Internal Medicine; Visit Provider Physician Assistant
DX: G56.30 Lesion of radial nerve, unspecified upper limb (principal)
CPT/HCPCS: 99214

== ENCOUNTER 2023-12-21 14:47 | Outpatient (REF) | payer OTHER, SELFPAY | END 2023-12-21 14:48 | disposition home or self-care (01) | LOC: HO.LAB 14:47 | PROVIDERS: PCP Internal Medicine; Visit Provider Urology | DX: N39.0 Urinary tract infection, site not specified (principal); N39.3 Stress incontinence (female) (male); R39.15 Urgency of urination; R35.0 Frequency of micturition | CPT/HCPCS: 81003; 87086; 99202 ==

== ENCOUNTER 2023-12-21 14:47 | Outpatient (AMB) | payer OTHER, SELFPAY ==
--- NOTE | 2023-12-21 15:20 | MHC.OFFVIS ---
Intake Visit Reasons: urinary incontinence Intake Note: NEW Patient presents today to established treatment for Urinary Incontinence: Meds- None Allergies to Antibiotic- No Known Allergies Blood Thinner- None Post Void Residual: 0 mL Back Line Cook Required: No Accompanied by: Self / Same As Patient Allergies SEAFOOD Allergy (Intermediate, Uncoded 12/21/23 15:22) UNKNOWN Medication List - Last Reconciled 12/21/23 by Nancy Sandoval MD albuterol sulfate 90 mcg/actuation 1 puff inhalation Q4H PRN ferrous sulfate 325 mg PO TID 30 days naproxen 500 mg PO BID sertraline 50 mg PO DAILY solifenacin (Vesicare) 10 mg PO BEDTIME HPI Comments Details: Eugenia is a 48-year-old female who states that for the last 6 months she has been noticing worsening urinary leakage. She states that she had a UTI about 2 months ago she was treated with antibiotics. She has a history of 5 vaginal pregnancies her last baby was about 9 lb. She states that she leaks with laughing and feels that she is going more frequently with a strong urge to urinate. Nocturia times 1-2. Urinalysis negative blood. Bladder scan PVR 0 mL Will send surveillance urine culture. I have discussed a trial of an anticholinergic, VESIcare 10 mg at bedtime. I will refer her to pelvic floor physical therapy. We will check a renal bladder ultrasound and follow-up office cystoscopy, pelvic exam at that time. [facility] Medical History Frequency of urination Urinary incontinence in female YELITZA III (cervical intraepithelial neoplasia grade III) with severe dysplasia Asthma Surgical History Hx of tubal ligation Social History Alcohol intake: current Alcohol intake frequency: a few times a month Alcohol type: beer and wine Patient Tobacco Use Status: Never used Tobacco Current occupational status: unemployed Female Reproductive History Menstrual Age of Menarche: 13 Review of Systems Const All systems reviewed & are unremarkable except as noted in HPI and below Reports no additional complaints Eyes Reports no additional complaints ENT Reports no additional complaints Card Reports no additional complaints Resp Reports no additional complaints GI Reports no additional complaints Reports as per HPI Musc Reports no additional complaints Skin/Breast Reports system reviewed and no additional complaints, except as documented Neuro Reports no additional complaints Psych Reports no additional complaints Endo Reports no additional complaints Jarod/Lymph Reports no additional complaints Aller/Immun Reports no additional complaints Physical Exam Const General: cooperative, healthy appearing and no acute distress Orientation/consciousness: patient oriented x3 HEENT Head: Yes normal to inspection, Yes normocephalic and Yes atraumatic Eyes Conjunctivae: conjunctivae normal Neck Neck: Yes normal visual inspection and Yes trachea midline Chest Chest palpation & inspection: normal inspection of the chest Resp Effort & Inspection: normal respiratory effort Cardio Jugular venous distension: no JVD GI Inspection: Yes normal to inspection Skin General skin exam: no rashes or lesions noted Neuro General: patient oriented x3 Extrem General: No edema Psych Appearance: grossly normal Results AMB Urinalysis, Automated UA Leukoctes 0 Mychal/uL Last Edit by Silverio Saenz [facility] on 12/21/23 15:23 UA Nitrite Negative Last Edit by Silverio Saenz [facility] on 12/21/23 15:23 UA Urobilinogen 0.2 mg/dL Last Edit by Silverio Saenz [facility] on 12/21/23 15:23 UA Protein 0 mg/dL Last Edit by Silverio Saenz [facility] on 12/21/23 15:23 UA pH 6.0 Last Edit by Silverio Saenz [facility] on 12/21/23 15:23 UA Blood 0 Marcellus/uL Last Edit by Silverio Saenz [facility] on 12/21/23 15:23 UA Specific [place] 1.005 Last Edit by Silverio Saenz [facility] on 12/21/23 15:23 UA Ketone Negative Last Edit by Silverio Saenz [facility] on 12/21/23 15:23 UA Bilirubin 0 mg/dL Last Edit by Silverio Saenz [facility] on 12/21/23 15:23 UA Glucose 0 mg/dL Last Edit by Silverio Saenz [facility] on 12/21/23 15:23 Results Reviewed Results Reviewed: Laboratory Last Values Urine pH (Auto) 6.0 12/21/23 15:23 Specific [place] (Auto) 1.005 12/21/23 15:23 Urine Protein (Auto) 0 mg/dL 12/21/23 15:23 Glucose (UA)(Auto) 0 mg/dL 12/21/23 15:23 Urine Ketones (Auto) Negative 12/21/23 15:23 Urine Blood (Auto) 0 Marcellus/uL 12/21/23 15:23 Urine Nitrite (Auto) Negative 12/21/23 15:23 Urine Bilirubin (Auto) 0 mg/dL 12/21/23 15:23 Urine Urobilinogen (Auto) 0.2 mg/dL 12/21/23 15:23 Leukocyte Esterase (Auto) 0 Mychal/uL 12/21/23 15:23 Assessment & Plan Assessment & Plan (1) LEESA (stress urinary incontinence, female): Code(s): N39.3 - Stress incontinence (female) (male) Category: Medical (2) Urinary urgency: Code(s): R39.15 - Urgency of urination Category: Medical (3) Frequency of urination: Code(s): R35.0 - Frequency of micturition Category: Medical Plan Discussed trial of anti muscarinic VESIcare 10 mg at bedtime Referred to pelvic floor physical therapy Renal bladder ultrasound follow-up office cystoscopy pelvic exam at that time. Orders: Orders AMB Urinalysis Automated Today Z13.9 - Encounter for screening, unspecified US retroperitoneal comp Today N39.3 - Stress incontinence (female) (male), R39.15 - Urgency of urination Referrals Pelvic Tariff Counsel Referral N39.3 - Stress incontinence (female) (male), R39.15 - Urgency of urination Medications: New solifenacin (Vesicare) 10 mg PO BEDTIME 30 tabs 3RF Patient Instructions: The patient had an opportunity to ask questions regarding treatment plan. The patient expressed understanding and agreement with the above treatment plan. The patient is aware they should contact our office by phone for worsening of their current condition or the appearance of new symptoms. Compliance is encouraged with any medications and followup testing that is ordered. It is a privilege to be allowed the opportunity to participate in the urologic care of your patient. If you have any questions or concerns regarding treatment for the above conditions please do not hesitate to contact me. The office telephone contact is [phone]. This note is constructed in part using voice recognition software. While every effort has been made to ensure accuracy machine ironer errors may have been included. Yours sincerely, Nancy Sandoval MD Coding Level of Care Code New Pt Level 4 (98528) Diagnoses LEESA (stress urinary incontinence, female) N39.3 Urinary urgency R39.15 Frequency of urination R35.0
== END 2023-12-21 15:49 | disposition home or self-care (01) ==
PROVIDERS: PCP Internal Medicine; Visit Provider Urology
DX: N39.3 Stress incontinence (female) (male) (principal); R39.15 Urgency of urination; R35.0 Frequency of micturition; Z13.9 Encounter for screening, unspecified
CPT/HCPCS: 99204

== ENCOUNTER 2023-12-26 14:12 | Outpatient (REF) | payer OTHER, SELFPAY ==
--- NOTE | 2023-12-26 | EMG_ITS ---
Chief complaint: Bilateral hand numbness, neck pain, arm pain, wrist swelling, after being hand cough for 6 hours Reason for referral: Evaluate for entrapment neuropathy Referred by: Li CHAND Procedure done: Bilateral upper extremities NCS/EMG Precautions and/or limitations: Afraid of needles The limb temperature was monitored continuously and remained between 32-36 degrees C during the performance of the NCS. Nerve Conduction Studies Anti Sensory Summary Table ?Stim Site NR Onset (ms) Norm Onset (ms) Peak (ms) Norm Peak (ms) O-P Amp (?V) Norm O-P Amp Site1 Site2 Delta-0 (ms) Dist (cm) Sunny (m/s) Norm Sunny (m/s) Left Median Anti Sensory (2nd Digit) Wrist ? 2.6 3.3 <3.6 43.8 >10 Wrist 2nd Digit 2.6 14.0 54 Right Median Anti Sensory (2nd Digit) Wrist ? 2.6 3.3 <3.6 34.2 >10 Wrist 2nd Digit 2.6 14.0 54 Right Radial Anti Sensory (Thumb) Forearm ? 1.4 1.8 <3.1 26.8 Forearm Thumb 1.4 0.0 Left Ulnar Anti Sensory (5th Digit) Wrist ? 2.3 2.9 <3.7 23.5 >15.0 Wrist 5th Digit 2.3 14.0 61 Right Ulnar Anti Sensory (5th Digit) Wrist ? 1.9 2.6 <3.7 29.2 >15.0 Wrist 5th Digit 1.9 14.0 74 Motor Summary Table ?Stim Site NR Onset (ms) Norm Onset (ms) O-P Amp (mV) Norm O-P Amp iAmp (mV) Amp (1st) (%) Site1 Site2 Delta-0 (ms) Dist (cm) Sunny (m/s) Norm Sunny (m/s) Left Median Motor (Abd Poll Brev) Wrist ? 3.5 <3.9 10.0 >4.5 11.7 100.0 Elbow Wrist 3.2 19.5 61 >45 Elbow ? 6.7 10.0 11.9 100.0 Right Median Motor (Abd Poll Brev) Wrist ? 3.3 <3.9 11.2 >4.5 13.5 100.0 Elbow Wrist 3.3 19.0 58 >45 Elbow ? 6.6 11.6 13.9 103.6 Left Ulnar Motor (Abd Dig Minimi) Wrist ? 2.4 <3.0 8.9 >5 10.0 100.0 B Elbow Wrist 2.7 17.0 63 >45 B Elbow ? 5.1 9.1 10.2 102.2 A Elbow B Elbow 1.5 10.0 67 >45 A Elbow ? 6.6 8.8 9.8 98.9 Right Ulnar Motor (Abd Dig Minimi) Wrist ? 2.4 <3.0 10.3 >5 11.8 100.0 B Elbow Wrist 3.0 19.5 65 >45 B Elbow ? 5.4 9.4 10.7 91.3 A Elbow B Elbow 1.2 10.0 83 >45 A Elbow ? 6.6 10.1 11.6 98.1 EMG ?Side Muscle Nerve Root Ins Act Fibs Psw Amp Dur Poly Recrt Int Pat Comment Right 1stDorInt Ulnar C8-T1 Nml Nml Nml Nml Nml 0 Nml Complete Right FlexCarRad Median C6-7 Nml Nml Nml Nml Nml 0 Nml Complete Right Biceps Musculocut C5-6 Nml Nml Nml Nml Nml 0 Nml Complete Right Triceps Radial C6-7-8 Nml Nml Nml Nml Nml 0 Nml Complete Right Deltoid Axillary C5-6 Nml Nml Nml Nml Nml 0 Nml Complete FINDINGS: All motor and sensory nerves tested showed normal latencies, amplitudes and conduction velocities. Concentric needle EMG was performed in selected muscles of the right upper extremity. Study revealed signs of electric abnormalities as shown in the table above. IMPRESSION: 1. This is a normal study. 2. There is no electrodiagnostic evidence for median neuropathy, ulnar neuropathy, brachial plexopathy, or cervical radiculopathy. Thank you for your kind referral. Fidelina Fragoso MD, NITA Board Certified, [place] [employer] and Rehabilitation (ABPMR) Board Certified, [place] Board of Electrodiagnostic Medicine (ABEM) [place] [id number] [facility]
== END 2023-12-26 14:13 | disposition home or self-care (01) ==
LOC: HO.NEURO 14:12
PROVIDERS: PCP Internal Medicine; Visit Provider Physician Assistant
DX: G56.30 Lesion of radial nerve, unspecified upper limb (principal)
CPT/HCPCS: 95886; 95911

== ENCOUNTER → 2023-12-26 14:43 | Outpatient (BNV) | payer OTHER, SELFPAY | PROVIDERS: PCP Internal Medicine; Visit Provider Physical Medicine & Rehabilitation | DX: R20.2 Paresthesia of skin (principal) | CPT/HCPCS: 95886; 95911 ==

== ENCOUNTER 2023-12-27 13:33 | Outpatient (REF) | payer OTHER, SELFPAY ==
--- NOTE | ~2023-12-27 | US_ITS ---
EXAMINATION: US RETROPERITONEAL COMPLETE (RENAL) CLINICAL INFORMATION: Urgency of urination. COMPARISON: None available. TECHNIQUE: Real-time imaging of the kidneys and bladder. Mildly technically limited due to patient inability to retain urine without severe discomfort. FINDINGS: RIGHT KIDNEY: 10.8 x 6.6 x 5.8 cm (SAG x AP x TRV). The kidney is normal in size, contour, and echogenicity. Renal cortical thickness is normal. No calculi or focal parenchymal lesions. No hydronephrosis. LEFT KIDNEY: 11.7 x 6.4 x 5.6 cm (SAG x AP x TRV). The kidney is normal in size, contour, and echogenicity. Renal cortical thickness is normal. No calculi or focal parenchymal lesions. No hydronephrosis. BLADDER: Partially distended. Bilateral ureteral jets are demonstrated. Prevoid bladder volume is 127 mL. Postvoid bladder volume is 6.6 mL. The patient was unable to retain urine without severe discomfort. US/US retroperitoneal comp IMPRESSION: 1. Normal appearance of the kidneys. 2. The bladder is only partially distended, limiting evaluation. 3. The patient was unable to retain urine without severe discomfort.
== END 2023-12-27 13:34 | disposition home or self-care (01) ==
LOC: HO.US 13:33
PROVIDERS: PCP Internal Medicine; Visit Provider Urology
DX: R39.15 Urgency of urination (principal); N39.3 Stress incontinence (female) (male)
CPT/HCPCS: 76770

== ENCOUNTER 2024-01-18 11:29 | Outpatient (AMB) | payer OTHER, SELFPAY ==
--- NOTE | 2024-01-18 11:33 | MHC.OFFVIS ---
Vital Signs 01/18/24 11:34 Handedness Right Intake Visit Reasons: OV GONZALO Hand EMG review Intake Note: Eugenia is a 48 year old right hand dominant female who presents today for a EMG review for her bilateral hands. Patient states she is still having numbness and pain in her hands. The numbness and tingling is in her neck and radiates down both arms into her hands. Motrin 800 mg gives her relief when she is having pain. IF she is holding onto something too long she says her hands begin to shake and she has to drop whatever she has in her hands. Allergies SEAFOOD Allergy (Intermediate, Uncoded 01/18/24 11:37) UNKNOWN HPI HPI OV OGNZALO Hand EMG review: Details: 48-year-old right hand dominant female who presents in the office today for a review of her EMG study and a follow-up of right hand numbness, which began on 12/21/2023 status post being handcuffed for 12 hours. I last saw the patient in the office on 12/04/2023 when she was referred for the EMG study.? ? While in the office today, the patient reports numbness and tingling in her neck that radiates down her bilateral hands. She states when she is grasping an item for ?too long? she claims her bilateral hands begin to shake causing her to drop the item. ? ? Patient confirms taking Motrin 800 mg (unspecified how often) which provides her with pain relief.? [facility] Medical History Frequency of urination Urinary incontinence in female YELITZA III (cervical intraepithelial neoplasia grade III) with severe dysplasia Asthma Surgical History Hx of tubal ligation Social History Alcohol intake: current Alcohol intake frequency: a few times a month Alcohol type: beer and wine Patient Tobacco Use Status: Never used Tobacco Current occupational status: unemployed Female Reproductive History Menstrual Age of Menarche: 13 Review of Systems Const All systems reviewed & are unremarkable except as noted in HPI and below Physical Exam Const General: cooperative, healthy appearing and no acute distress Resp Effort & Inspection: normal respiratory effort and able to speak in complete sentences Cardio Rate: regular rate Peripheral pulses: Peripheral pulses 2+ throughout GI Palpation (GI): Soft to palpation Skin Lesions: no lesions Rashes: no rashes Extrem Other: Bilateral hands: Normal to inspection. No ecchymosis, erythema, or edema. Able to perform full finger flexion, extension, abduction, adduction, finger cross, okay sign, and thumbs up without deficit. Able to make a closed fist. Positive Tinel?s at the carpal tunnel bilaterally. Sensation intact. Capillary refill is brisk. Radial pulse intact. 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 Vickers is a 48-year-old right hand dominant female who presents in the office today for a review of her EMG study and a follow-up of right hand numbness, which began on 12/21/2023 status post being handcuffed for 12 hours. I last saw the patient in the office on 12/04/2023 when she was referred for the EMG study.? ? While in the office today, the patient reports numbness and tingling in her neck that radiates down her bilateral hands. She states when she is grasping an item for ?too long? she claims her bilateral hands begin to shake causing her to drop the item. ? ? Patient confirms taking Motrin 800 mg (unspecified how often) which provides her with pain relief.? ? The patient will be referred to Physiatry for further evaluation and treatment as she continues to express a concern of bilateral hand and fingertip numbness and tingling that radiates up to her neck. She also reports that after holding objects for prolonged periods of time, her bilateral hands begin to shake and become weak. Follow-up will be PRN, or sooner if needed. ? ? EMG study of the bilateral upper extremities, obtained on 12/26/2023, revealed: ? 1. This is a normal study.? 2. There is no electrodiagnostic evidence for median neuropathy, ulnar neuropathy, brachial plexopathy, or cervical radiculopathy.? Patient Instructions: Scribed by Sariah Moore medical researcher, for Li Mejia PA-C on 01/18/2024 at 11:45 am, EST.? Coding Level of Care Code Est Pt Level 3 (47802) Diagnoses Cervical radicular pain M54.12 Wartenberg syndrome G56.30
== END 2024-01-18 12:24 | disposition home or self-care (01) ==
PROVIDERS: PCP Internal Medicine; Visit Provider Physician Assistant
DX: M54.12 Radiculopathy, cervical region (principal); G56.30 Lesion of radial nerve, unspecified upper limb
CPT/HCPCS: 99213

== ENCOUNTER → 2024-01-18 11:29 | Outpatient (BNVA) | payer OTHER, SELFPAY | PROVIDERS: PCP Internal Medicine; Visit Provider Physician Assistant | DX: M54.12 Radiculopathy, cervical region (principal); R20.2 Paresthesia of skin; R20.0 Anesthesia of skin; M79.642 Pain in left hand; M79.641 Pain in right hand | CPT/HCPCS: 99212 ==

== ENCOUNTER 2024-01-29 16:03 | Outpatient (REF) | payer OTHER, SELFPAY ==
[2024-01-29 16:25] LABS: MANUAL DIFF FLAG NO
[2024-01-29 17:41] LABS: Basophils Absolute Auto 0.1 X10*3/uL (0.0-0.2); Basophils Percent Auto 0.7 % (0-2); Eosinophils Absolute Auto 0.1 X10*3/uL (0.0-0.4); Hematocrit 43.6 % (37.0-47.0); Hemoglobin 14.3 g/dl (12.0-16.0); Imm Gran Abs Auto 0.02 X10*3/uL (0.00-0.03); Imm Gran Pct Auto 0.3 % (0.0-0.4); Lymphocytes Absolute Auto 2.5 X10*3/uL (1.2-4.9); Lymphocytes Percent Auto 32.5 % (20-40); Mean Corpuscular HGB Conc 32.8 g/dl (31.0-35.0); Mean Corpuscular Hemoglobin 29.4 pg (27.0-33.0); Mean Corpuscular Volume 89.5 fL (80.0-98.0); Mean Platelet Volume 9.7 fL (9.4-12.3); Monocytes Absolute Auto 0.6 X10*3/uL (0.1-1.2); Monocytes Percent Auto 7.2 % (2-11); Neutrophils Absolute Auto 4.5 x10*3/uL (2.0-8.3); Neutrophils Percent Auto 58.3 % (45-73); Platelet Count 364 X10*3/uL (160-400); Red Blood Count 4.87 X10*6/uL (4.20-5.50); Red Cell Distribution Width 13.6 % (11.0-16.0); White Blood Count 7.6 X10*3/uL (4.8-10.8)
[2024-01-29 18:24] LABS: Alanine Aminotransferase 32 U/L (0-31); Albumin Level 4.4 g/dL (3.5-5.0); Alkaline Phosphatase 90 U/L (39-117); Anion Gap 13 (12-20); Aspartate Amino Transferase 25 U/L (5-31); Bilirubin Total 0.3 mg/dL (0.0-1.0); Blood Urea Nitrogen 13 mg/dL (9-16); Calcium 9.9 mg/dL (8.4-10.2); Carbon Dioxide 26 mmol/L (22-29); Chloride 103 mmol/L (96-108); Cholesterol 226 mg/dL (<200); Estimated Glomerular Filt Rate > 60; Glucose Random 83 mg/dL (60-115); HDL Cholesterol 60 mg/dL (>40); LDL Cholesterol Calculated 148 mg/dL (<100); Potassium 3.9 mmol/L (3.3-5.1); Sodium 138 mmol/L (135-145); Triglycerides 93 mg/dL (<150)
[2024-01-29 18:33] LABS: Thyroid Stimulating Hormone 0.57 uIU/mL (0.32-4.0)
[2024-01-30 05:52] LABS: CT PCR NOT DETECTED (Not Detect.); NG PCR NOT DETECTED (Not Detect.)
== END 2024-01-29 16:04 | disposition home or self-care (01) ==
LOC: HO.LAB 16:03
PROVIDERS: PCP Internal Medicine; Visit Provider Internal Medicine
DX: Z00.00 Encounter for general adult medical examination without abnormal findings (principal); J45.909 Unspecified asthma, uncomplicated; N32.81 Overactive bladder; N95.1 Menopausal and female climacteric states; R87.810 Cervical high risk human papillomavirus (HPV) DNA test positive
CPT/HCPCS: 80053; 80061; 84443; 85025; 87491; 87591

== ENCOUNTER 2024-02-07 14:14 | Outpatient (AMB) | payer OTHER, SELFPAY ==
--- NOTE | 2024-02-07 14:39 | MHC.OFFVIS ---
Intake Visit Reasons: cysto/U/S(US 12/26) Intake Note: Patient is Present for Cystoscopy/Pelvic Exam Urology Med:Vesicare Antibiotic Allergy:None Blood Thinner:None URO- G Disposable Cystoscope lot:[id number] exp:08/16/2026 Club Concierge Required: No Accompanied by: Self / Same As Patient Allergies SEAFOOD Allergy (Intermediate, Uncoded 02/07/24 14:43) UNKNOWN Medication List - Last Reconciled 02/07/24 by Nancy Sandoval MD albuterol sulfate 90 mcg/actuation 1 puff inhalation Q4H PRN ferrous sulfate 325 mg PO TID 30 days naproxen 500 mg PO BID phenazopyridine (Pyridium) 200 mg PO BID PRN sertraline 50 mg PO DAILY solifenacin (Vesicare) 10 mg PO BEDTIME HPI Comments Details: 02/07/24--Eugenia is here for office cystoscopy. Cystoscopy findings: no suspicious bladder lesions. Vesicare 10 mg qhs for oab symptoms. Review of chart: 12/21/23--Eugenia is a 48-year-old female who states that for the last 6 months she has been noticing worsening urinary leakage. She states that she had a UTI about 2 months ago she was treated with antibiotics. She has a history of 5 vaginal pregnancies her last baby was about 9 lb. She states that she leaks with laughing and feels that she is going more frequently with a strong urge to urinate. Nocturia times 1-2. Urinalysis negative blood. Bladder scan PVR 0 mL Will send surveillance urine culture. I have discussed a trial of an anticholinergic, VESIcare 10 mg at bedtime. I will refer her to pelvic floor physical therapy. We will check a renal bladder ultrasound and follow-up office cystoscopy, pelvic exam at that time. [facility] Medical History Frequency of urination Urinary incontinence in female YELITZA III (cervical intraepithelial neoplasia grade III) with severe dysplasia Asthma Surgical History Hx of tubal ligation Social History Alcohol intake: current Alcohol intake frequency: a few times a month Alcohol type: beer and wine Patient Tobacco Use Status: Never used Tobacco Current occupational status: unemployed Female Reproductive History Menstrual Age of Menarche: 13 Review of Systems Const All systems reviewed & are unremarkable except as noted in HPI and below Reports no additional complaints Eyes Reports no additional complaints ENT Reports no additional complaints Card Reports no additional complaints Resp Reports no additional complaints GI Reports no additional complaints Reports as per HPI Musc Reports no additional complaints Skin/Breast Reports system reviewed and no additional complaints, except as documented Neuro Reports no additional complaints Psych Reports no additional complaints Endo Reports no additional complaints Jarod/Lymph Reports no additional complaints Aller/Immun Reports no additional complaints Office Procedures Cystoscopy Consent Discussed risk and benefit or proposed procedure with the patient. Information consent for procedure given to the patient. Discussed technical aspects, risks, benefits and alternatives in full. Addressed all of the patient's questions and concerns regarding the procedure. The patient demonstrated knowledge and understanding. They wish to proceed with this procedure. Preparation The patient was prepped in the usual manner. A aircraft metalsmith was present and in the room. Genitalia was prepped with betadine solution in a sterile manner. Lidocaine Jelly 2% was placed into the urethra and 16Fr flexible Olympus cystoscope was inserted into the meatus after adequate lubrication. Procedure Time out per protocol performed. Bladder Inspection Bladder Inspection: The bladder was inspected in its entirety with utilization retroflexion displaying: Tumor(s): no suspicious bladder lesions visualized Trabeculation: Mild Mucosal Erthema: NA Orifices: normal shape and position Urethra: normal Cystoscopy findings:no suspicious bladder lesions visualized [id number] DISPOSABLE SCOPE URO-G FLEXIBLE SCOPE Procedure code (CPT) selection complete Office Meds lidocaine HCl 2 % mucosal jelly in applicator Performing Provider: Nancy Sandoval MD [facility] Administered by: Jorge Coleman LPN on 02/07/24 15:05 Dose Route Admin Location Dispensed Lot Number Expiration Date [facility] Dance Studio Manager 10 mL intra-urethral 10 mL naproxen 500 mg tablet Performing Provider: Nancy Sandoval MD [facility] Administered by: Jorge Coleman LPN on 02/07/24 15:05 Dose Route Admin Location Dispensed Lot Number Expiration Date [facility] Dance Studio Manager 500 mg PO 1 tab ciprofloxacin HCl 500 mg tablet Performing Provider: Nancy Sandoval MD [facility]forming [facility] Administered by: Jorge Coleman LPN on 02/07/24 15:05 Dose Route Admin Location Dispensed Lot Number Expiration Date [facility] Dance Studio Manager 500 mg PO 1 tab Results AMB Urinalysis, Automated UA Leukoctes 0 Mychal/uL Last Edit by Brooklyn Torres A on 02/07/24 14:58 UA Nitrite Negative Last Edit by Brooklyn Torres A on 02/07/24 14:58 UA Urobilinogen 0.2 mg/dL Last Edit by Brooklyn Torres RMA on 02/07/24 14:58 UA Protein 0 mg/dL Last Edit by Brooklyn Torres A on 02/07/24 14:58 UA pH 5.5 Last Edit by Brooklyn Torres A on 02/07/24 14:58 UA Blood 0 Marcellus/uL Last Edit by Brooklyn Torres A on 02/07/24 14:58 UA Specific Atkinson 1.015 Last Edit by Brooklyn Torres A on 02/07/24 14:58 UA Ketone Negative Last Edit by Brooklyn Torres A on 02/07/24 14:58 UA Bilirubin 0 mg/dL Last Edit by Brooklyn Torres RMA on 02/07/24 14:58 UA Glucose 0 mg/dL Last Edit by Brooklyn Torres A on 02/07/24 14:58 Results Reviewed Results Reviewed: Laboratory Last Values Urine pH (Auto) 5.5 02/07/24 14:44 Specific Atkinson (Auto) 1.015 02/07/24 14:44 Urine Protein (Auto) 0 mg/dL 02/07/24 14:44 Glucose (UA)(Auto) 0 mg/dL 02/07/24 14:44 Urine Ketones (Auto) Negative 02/07/24 14:44 Urine Blood (Auto) 0 Marcellus/uL 02/07/24 14:44 Urine Nitrite (Auto) Negative 02/07/24 14:44 Urine Bilirubin (Auto) 0 mg/dL 02/07/24 14:44 Urine Urobilinogen (Auto) 0.2 mg/dL 02/07/24 14:44 Leukocyte Esterase (Auto) 0 Mychal/uL 02/07/24 14:44 Assessment & Plan Assessment & Plan (1) LEESA (stress urinary incontinence, female): Code(s): N39.3 - Stress incontinence (female) (male) Category: Medical (2) Urinary urgency: Code(s): R39.15 - Urgency of urination Category: Medical (3) Frequency of urination: Code(s): R35.0 - Frequency of micturition Category: Medical Plan Vesicare 10 mg daily, fu 3 months Orders: Orders AMB Cystoscopy 02/07/24 N39.3 - Stress incontinence (female) (male) AMB Urinalysis Automated 02/07/24 Z13.9 - Encounter for screening, unspecified Medications: New naproxen 500 mg PO BID 20 tabs 0RF pain phenazopyridine (Pyridium) Must take with food/meal 200 mg PO BID PRN 30 tabs 0RF urinary burning Refilled solifenacin (Vesicare) 10 mg PO BEDTIME 30 tabs 3RF Patient Instructions: The patient had an opportunity to ask questions regarding treatment plan. The patient expressed understanding and agreement with the above treatment plan. The patient is aware they should contact our office by phone for worsening of their current condition or the appearance of new symptoms. Compliance is encouraged with any medications and followup testing that is ordered. It is a privilege to be allowed the opportunity to participate in the urologic care of your patient. If you have any questions or concerns regarding treatment for the above conditions please do not hesitate to contact me. The office telephone contact is [phone]. This note is constructed in part using voice recognition software. While every effort has been made to ensure accuracy pressure sealer and tester errors may have been included. Yours sincerely, Nancy Sandoval MD Coding Level of Care Code Est Pt Level 3 (19121) Diagnoses LEESA (stress urinary incontinence, female) N39.3 Urinary urgency R39.15 Frequency of urination R35.0 CPT Codes Cystoscopy - CPT: [id number]-[id number] ([id number])
== END 2024-02-07 15:34 | disposition home or self-care (01) ==
PROVIDERS: PCP Internal Medicine; Visit Provider Urology
DX: N39.3 Stress incontinence (female) (male) (principal); Z13.9 Encounter for screening, unspecified
CPT/HCPCS: 52000; 99213

== ENCOUNTER → 2024-02-07 14:14 | Outpatient (BNVA) | payer OTHER, SELFPAY | PROVIDERS: PCP Internal Medicine; Visit Provider Urology | DX: N39.3 Stress incontinence (female) (male) (principal); R39.15 Urgency of urination; R35.0 Frequency of micturition | CPT/HCPCS: 52000; 81003; 99212 ==

== ENCOUNTER 2024-03-05 07:07 | Outpatient (REF) | payer OTHER, SELFPAY | END 2024-03-05 07:08 | disposition home or self-care (01) | LOC: HO.LNP 07:07 | PROVIDERS: PCP Internal Medicine; Visit Provider Obstetrics & Gynecology | DX: Z11.3 Encounter for screening for infections with a predominantly sexual mode of transmission (principal) | CPT/HCPCS: 99212 ==

== ENCOUNTER 2024-03-05 07:07 | Outpatient (AMB) | payer OTHER, SELFPAY ==
[2024-03-05 07:10] VITALS: BP 112/70; BMI 34.8
--- NOTE | 2024-03-05 07:10 | A.OFFVIS_ITS ---
Vital Signs 03/05/24 07:10 Height 5 ft 4 in Weight 203 lb BMI 34.8 BP 112/70 Intake Visit Reasons: menopause symptoms Special Needs Caregiver Required: No Information Interpreted: non-clinical & clinical Accompanied by: Self / Same As Patient Allergies SEAFOOD Allergy (Intermediate, Uncoded 03/05/24 07:13) UNKNOWN HPI Comments Details: Presenting complaining of hot flashes, weight gain, brain fogginess, night sweats over the last 2 months. The patient was started on solifenacin but the patient has stopped the week ago. The patient is interested in STD screening [facility] Medical History Frequency of urination Urinary incontinence in female YELITZA III (cervical intraepithelial neoplasia grade III) with severe dysplasia Asthma Surgical History Hx of tubal ligation Social History Alcohol intake: current Alcohol intake frequency: a few times a month Alcohol type: beer and wine Patient Tobacco Use Status: Never used Tobacco Current occupational status: unemployed Female Reproductive History Menstrual Age of Menarche: 13 Review of Systems Const All systems reviewed & are unremarkable except as noted in HPI and below Reports as per HPI and Reports no additional complaints GI Reports no additional complaints Reports no additional complaints Physical Exam Vital Signs: Last Vital Signs BP 112/70 03/05/24 07:10 BMI result Body Mass Index 34.8 Assessment & Plan Assessment & Plan (1) Hot flashes: Code(s): R23.2 - [place] Category: Medical Plan: Discussed with the patient the differential diagnosis of hot flashes including but not limited to thyroid disorders, menopause, medication side effects and others will start with CBC, FSH/LH, TSH and treat accordingly. Explained to the patient that the half-life of solifenacin is around 56 hours might take up to 3 weeks for the medication to be completely cleared from her system, therefore will follow-up in 2 weeks if her hot flashes persists this were rule out medication side effects as a cause. Instructions given the patient to schedule a 2 week follow-up appointment (2) Screen for STD (sexually transmitted disease): Code(s): Z11.3 - Encounter for screening for infections with a predominantly sexual mode of transmission Category: Medical Plan: STD screening tests done includes: BV panel for trichomonas, GC/CT will send patient for serology std screening for HIV, RPR, Hep b s Ag, HepC Ab. Instructions given the patient to schedule a follow-up appointment for repeat serology screen in 6 months for possible false negatives. Orders: Orders Follicle Stimulating Hormone Today R23.2 - [place] TSH reflex Free T4 Today R23.2 - [place] Hepatitis C Antibody Today Z20.2 - Contact with and (suspected) exposure to infections with a predominantly sexual mode of transmission Complete Blood Count no Diff Today R23.2 - [place] Lutenizing Hormone Today R23.2 - [place] Hepatitis B Surface Antigen Today Z20.2 - Contact with and (suspected) exposure to infections with a predominantly sexual mode of transmission HIV Ab/Ag Today Z20.2 - Contact with and (suspected) exposure to infections with a predominantly sexual mode of transmission Syphilis Screen Today Z20.2 - Contact with and (suspected) exposure to infections with a predominantly sexual mode of transmission Coding Level of Care Code Est Pt Level 3 (31616) Diagnoses Hot flashes R23.2 Screen for STD (sexually transmitted disease) Z11.3
== END 2024-03-05 08:14 | disposition home or self-care (01) ==
LOC: HO.HWS 07:07
PROVIDERS: PCP Internal Medicine; Visit Provider Obstetrics & Gynecology
DX: R23.2 Flushing (principal); Z11.3 Encounter for screening for infections with a predominantly sexual mode of transmission
CPT/HCPCS: 99213

== ENCOUNTER 2024-03-05 08:01 | Outpatient (REF) | payer OTHER, SELFPAY ==
[2024-03-05 08:17] LABS: Hematocrit 44.4 % (37.0-47.0); Hemoglobin 14.7 g/dl (12.0-16.0); Mean Corpuscular HGB Conc 33.1 g/dl (31.0-35.0); Mean Corpuscular Hemoglobin 29.8 pg (27.0-33.0); Mean Corpuscular Volume 89.9 fL (80.0-98.0); Mean Platelet Volume 8.9 fL (9.4-12.3); Platelet Count 316 X10*3/uL (160-400); Red Blood Count 4.94 X10*6/uL (4.20-5.50); Red Cell Distribution Width 13.9 % (11.0-16.0); White Blood Count 6.1 X10*3/uL (4.8-10.8)
[2024-03-05 09:23] LABS: TSH reflex Free T4 0.82 uIU/mL (0.32-4.0)
[2024-03-05 09:24] LABS: HBsAGNum1 0.22 S/CO (0.00-0.99); HIV AB/AG Nonreactive (Nonreactive); HIV Num 1 0.05 S/CO (0.00-0.99); Hepatitis B Surface Antigen Negative (Negative); Syphilis Screen Nonreactive (Nonreactive); ~HepC Num1 0.14 S/CO (0.00-0.79); ~Hepatitis C Antibody Nonreactive (Nonreactive)
[2024-03-05 17:25] LABS: Bacterial Vaginosis PCR NEGATIVE (Negative); Candida Group PCR DETECTED (Not Detect); Candida glab krusei PCR NOT DETECTED (Not Detect); Trichomonas vaginalis PCR NOT DETECTED (Not Detect)
[2024-03-05 17:37] LABS: CT PCR NOT DETECTED (Not Detect.); NG PCR NOT DETECTED (Not Detect.)
[2024-03-06 19:24] LABS: Follicle Stimulating Hormone 23.9 mIU/mL; Lutenizing Hormone 6.4 mIU/mL
== END 2024-03-05 08:02 | disposition home or self-care (01) ==
LOC: HO.LAB 08:01
PROVIDERS: PCP Internal Medicine; Visit Provider Obstetrics & Gynecology
DX: R23.2 Flushing (principal); Z11.3 Encounter for screening for infections with a predominantly sexual mode of transmission; Z20.2 Contact with and (suspected) exposure to infections with a predominantly sexual mode of transmission
CPT/HCPCS: 0352U; 83001; 83002; 84443; 85027; 86780; 86803; 87340; 87389; 87491; 87591

== ENCOUNTER 2024-03-25 08:32 | Outpatient (AMB) | payer OTHER, SELFPAY ==
--- NOTE | 2024-03-25 08:32 | MHC.OFFVIS ---
Intake Visit Reasons: Labs results Allergies SEAFOOD Allergy (Intermediate, Uncoded 03/05/24 07:13) UNKNOWN HPI Comments Details: The patient is scheduled tele health visit for follow-up. The patient is complaining of vulvovaginal itching H&H 14.7/44.4 FSH/LH 23.9/6.4 TSH within normal STD screen all negative except for positive Leida PFSH Medical History Frequency of urination Urinary incontinence in female YELITZA III (cervical intraepithelial neoplasia grade III) with severe dysplasia Asthma Surgical History Hx of tubal ligation Social History Alcohol intake: current Alcohol intake frequency: a few times a month Alcohol type: beer and wine Patient Tobacco Use Status: Never used Tobacco Current occupational status: unemployed Female Reproductive History Menstrual Age of Menarche: 13 Review of Systems Const All systems reviewed & are unremarkable except as noted in HPI and below Reports as per HPI and Reports no additional complaints GI Reports no additional complaints Reports no additional complaints Telehealth Telehealth Telehealth Platform: Telephone Location of provider rendering services: practice address Location of patient: address on file Patient Identification confirmed using: Name, : Yes Telehealth method: video Patient verbally consented to treatment: Yes Patient verbally consented to billing insurance company: Yes Patient informed of any privacy concerns related to visit: Yes Assessment & Plan Assessment & Plan (1) Screen for STD (sexually transmitted disease): Code(s): Z11.3 - Encounter for screening for infections with a predominantly sexual mode of transmission Category: Medical Plan: Discussed with the patient the results of her STD screening tests including BV panel for trichomonas, GC/CT HIV, RPR, Hep b s Ag, HepC Ab. Instructions given the patient to schedule a follow-up appointment for repeat serology screen in 6 months for possible false negatives. (2) Hot flashes: Comment: perimenopause Code(s): R23.2 - [place] Category: Medical Plan: Discussed with the patient's the results of FSH being elevated in the menopausal range, LH in the premenopausal range, normal TSH. (3) Vulvovaginitis: Code(s): N76.0 - Acute vaginitis Category: Medical Plan: Terazol 0.8% q.h.s. for 3 days with Lotrisone cream b.i.d. for 5 days was sent to the patient's pharmacy. The patient was instructed to call if symptoms don't improve in 48 hours. I spent a total of 20 minutes reviewing the chart, talking to the patient via video and documenting in the medical record. Medications: New clotrimazole-betamethasone 1-0.05 % 1 appl topical BID 5 days 45 grams 0RF Refilled terconazole 0.8% 1 appful vaginal BEDTIME 3 days 20 grams 0RF Coding Level of Care Code Tele Est Pt Level 1 (70549) Diagnoses Screen for STD (sexually transmitted disease) Z11.3 Hot flashes R23.2 Vulvovaginitis N76.0
== END 2024-03-25 10:05 | disposition home or self-care (01) ==
LOC: HO.HWS 08:32
PROVIDERS: PCP Internal Medicine; Visit Provider Obstetrics & Gynecology
DX: Z11.3 Encounter for screening for infections with a predominantly sexual mode of transmission (principal); R23.2 Flushing; N76.0 Acute vaginitis
CPT/HCPCS: 99211

== ENCOUNTER → 2024-03-25 08:32 | Outpatient (BNVA) | payer OTHER, SELFPAY | PROVIDERS: PCP Internal Medicine; Visit Provider Obstetrics & Gynecology ==

== ENCOUNTER 2024-04-07 12:35 | Outpatient (AMB) | payer OTHER, SELFPAY ==
--- NOTE | 2024-04-07 12:35 | MHC.OFFVIS ---
Intake Visit Reasons: medication questions Allergies SEAFOOD Allergy (Intermediate, Uncoded 03/05/24 07:13) UNKNOWN HPI Comments Details: The patient scheduled tele health visit complaining of vulvovaginal irritation. The patient had similar symptoms on 03/04 was treated with Terazol has improved but recently her symptoms recurred no vaginal discharge with foul odor [facility] Medical History Frequency of urination Urinary incontinence in female YELITZA III (cervical intraepithelial neoplasia grade III) with severe dysplasia Asthma Surgical History Hx of tubal ligation Social History Alcohol intake: current Alcohol intake frequency: a few times a month Alcohol type: beer and wine Patient Tobacco Use Status: Never used Tobacco Current occupational status: unemployed Female Reproductive History Menstrual Age of Menarche: 13 Review of Systems Const All systems reviewed & are unremarkable except as noted in HPI and below Reports as per HPI and Reports no additional complaints GI Reports no additional complaints Reports no additional complaints Telehealth Telehealth Telehealth Platform: Telephone Location of provider rendering services: practice address Location of patient: address on file Patient Identification confirmed using: Name, : Yes Telehealth method: video Patient verbally consented to treatment: Yes Patient verbally consented to billing insurance company: Yes Patient informed of any privacy concerns related to visit: Yes Assessment & Plan Assessment & Plan (1) Vulvovaginitis: Code(s): N76.0 - Acute vaginitis Category: Medical Plan: Terazol 0.8% q.h.s. for 3 days was sent to the patient's pharmacy. The patient was instructed to call if symptoms don't improve in 48 hours. I spent a total of 20 minutes reviewing the chart, talking to the patient via video and documenting in the medical record. Medications: Refilled terconazole 0.8% 1 appful vaginal BEDTIME 3 days 20 grams 0RF Coding Level of Care Code Tele Est Pt Level 1 (53368) Diagnoses Vulvovaginitis N76.0
== END 2024-04-07 14:18 | disposition home or self-care (01) ==
LOC: HO.HWS 12:35
PROVIDERS: PCP Internal Medicine; Visit Provider Obstetrics & Gynecology
DX: N76.0 Acute vaginitis (principal)
CPT/HCPCS: 99211

== ENCOUNTER → 2024-04-07 12:35 | Outpatient (BNVA) | payer OTHER, SELFPAY | PROVIDERS: PCP Internal Medicine; Visit Provider Obstetrics & Gynecology ==

== ENCOUNTER 2024-04-21 13:29 | Outpatient (REF) | payer OTHER, SELFPAY ==
[2024-04-22 08:50] LABS: Bacterial Vaginosis PCR NEGATIVE (Negative); Candida Group PCR NOT DETECTED (Not Detect); Candida glab krusei PCR NOT DETECTED (Not Detect); Trichomonas vaginalis PCR NOT DETECTED (Not Detect)
[2024-04-22 09:03] LABS: CT PCR NOT DETECTED (Not Detect.); NG PCR NOT DETECTED (Not Detect.)
== END 2024-04-21 13:30 | disposition home or self-care (01) ==
LOC: HO.LNP 13:29
PROVIDERS: PCP Internal Medicine; Visit Provider Obstetrics & Gynecology
DX: Z01.419 Encounter for gynecological examination (general) (routine) without abnormal findings (principal); N76.0 Acute vaginitis; N93.9 Abnormal uterine and vaginal bleeding, unspecified
CPT/HCPCS: 0352U; 87491; 87591; 99212; 99396

== ENCOUNTER 2024-04-21 13:29 | Outpatient (AMB) | payer OTHER, SELFPAY ==
--- NOTE | 2024-04-21 13:34 | MHC.OFFVIS ---
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 Complaining of an episode of and scheduled vaginal bleeding in addition complaining of burning on urination and vulvovaginal ammonia smell Last Pap/HPV was negative in 06/22 Last Mammogram was BI-RADS 1 in 06/22 No previous screening colonoscopy PFSH Medical History Frequency of urination Urinary incontinence in female YELITZA III (cervical intraepithelial neoplasia grade III) with severe dysplasia Asthma Surgical History Hx of tubal ligation Social History Alcohol intake: current Alcohol intake frequency: a few times a month Alcohol type: beer and wine Patient Tobacco Use Status: Never used Tobacco Current occupational status: unemployed Female Reproductive History Menstrual Age of Menarche: 13 control method: permanent sterilization Date of last pap smear: 06/14/22 Date of Mammogram: 04/30/22 Review of Systems Const All systems reviewed & are unremarkable except as noted in HPI and below Card Reports as per HPI Resp Reports as per HPI GI Reports as per HPI and Reports no additional complaints Reports as per HPI Physical Exam Vital Signs: Last Vital Signs BP 118/68 04/21/24 13:40 BMI result Body Mass Index 34.8 Const General: cooperative, healthy appearing and comfortable Chest Chest palpation & inspection: normal inspection of the chest and normal palpation of entire chest wall Breast/axilla inspection: normal inspection of the breasts and normal inspection of the axillae Breast/axilla palpation: normal palpation of the breasts, normal palpation of the axillae and no axillary lymphadenopathy Resp Effort & Inspection: normal respiratory effort Auscultation: clear to auscultation bilaterally Percussion: percussion normal Cardio Palpation: normal PMI Rate: regular rate Rhythm: regular rhythm Heart sounds: no murmurs and no rubs Peripheral pulses: Peripheral pulses 2+ throughout GI Inspection: Yes normal to inspection Palpation (GI): Soft to palpation, nontender, no guarding, not rigid and No hepatosplenomegaly present Percussion: Yes normal to percussion Auscultation: normal bowel sounds Rectal Exam - Female: deferred General: Yes bladder normal to palpation External Female Exam: No lesion Speculum Exam - Vagina: normal appearance of the vagina, normal palpation, normal vaginal discharge and not erythematous Speculum Exam - Cervix: normal appearance of the cervix and normal palpation Bimanual exam- vagina & uterus: normal bimanual exam, normal palpation, uterine size normal, bladder normal to palpation, consistency normal and normal palpation Bimanual Exam- Adnexa, other: normal adnexae, no masses and no tenderness Assessment & Plan Assessment & Plan (1) Well woman exam: Comment: YELITZA 3 status post LEEP with positive margin in 07/18 06/22 negative co testing Code(s): Z01.419 - Encounter for gynecological examination (general) (routine) without abnormal findings Category: Medical Plan: Cotesting not indicated this year. Mammogram ordered. Refer to GI for screening colonoscopy Counseled the patient about the recommended dietary allowance of 1000 mg of Calcium & 600 IU of vitamin D. The patient was instructed to perform monthly self-breast exams and to schedule an annual exam in a year; All questions answered and the patient verbalized understanding. Instructed the patient to schedule annual exam in a year (2) Vulvovaginitis: Code(s): N76.0 - Acute vaginitis Category: Medical Plan: Urine dip and test done in the office was negative. GC/CT with BV panel taken. Will check the results and treat accordingly (3) Abnormal uterine bleeding: Comment: Status post NovaSure ablation Code(s): N93.9 - Abnormal uterine and vaginal bleeding, unspecified Category: Medical Plan: GC and chlamydia taken CBC, TSH, prolactin, HCG, FSH/LH and pelvic ultrasound ordered. Discussed with the patient the different causes of abnormal bleeding including thyroid disorders, uterine and ovarian pathology, endometrial hyperplasia, carcinoma and other potential causes. Discussed with the patient the work up including CBC (to r/o anemia), TSH, prolactin, pelvic Ultrasound, endometrial biopsy to r/o endometrial pathology. All questions answered and the patient verbalized understanding. Instructed the patient to schedule an appointment for an endometrial biopsy in 2 weeks. Orders: Orders Lutenizing Hormone Today N93.9 - Abnormal uterine and vaginal bleeding, unspecified Follicle Stimulating Hormone Today N93.9 - Abnormal uterine and vaginal bleeding, unspecified Prolactin Today N93.9 - Abnormal uterine and vaginal bleeding, unspecified HCG Quantitative Today N93.9 - Abnormal uterine and vaginal bleeding, unspecified MM tomosynthesis screening BI Today Z12.31 - Encounter for screening mammogram for malignant neoplasm of breast CT NG by PCR Today N76.0 - Acute vaginitis Bacterial Vaginosis Panel Today N76.0 - Acute vaginitis TSH reflex Free T4 Today N93.9 - Abnormal uterine and vaginal bleeding, unspecified Complete Blood Count no Diff Today N93.9 - Abnormal uterine and vaginal bleeding, unspecified US pelvic and transvaginal Today N93.9 - Abnormal uterine and vaginal bleeding, unspecified Referrals Gastroenterology Referral Z12.11 - Encounter for screening for malignant neoplasm of colon Coding Level of Care Code Est Pt Level 3 (62223) Est Pt Prev Care 40-64y(91767) Diagnoses Well woman exam Z01.419 Vulvovaginitis N76.0 Abnormal uterine bleeding N93.9
[2024-04-21 13:40] VITALS: BP 118/68; BMI 34.8
== END 2024-04-21 14:04 | disposition home or self-care (01) ==
LOC: HO.HWS 13:29
PROVIDERS: PCP Internal Medicine; Visit Provider Obstetrics & Gynecology
DX: Z01.419 Encounter for gynecological examination (general) (routine) without abnormal findings (principal); N76.0 Acute vaginitis; N93.9 Abnormal uterine and vaginal bleeding, unspecified
CPT/HCPCS: 99213; 99396

== ENCOUNTER 2024-04-21 14:19 | Outpatient (REF) | payer OTHER, SELFPAY ==
[2024-04-21 15:01] LABS: Hematocrit 44.3 % (37.0-47.0); Hemoglobin 14.5 g/dl (12.0-16.0); Mean Corpuscular HGB Conc 32.7 g/dl (31.0-35.0); Mean Corpuscular Hemoglobin 29.4 pg (27.0-33.0); Mean Corpuscular Volume 89.7 fL (80.0-98.0); Mean Platelet Volume 8.9 fL (9.4-12.3); Platelet Count 403 X10*3/uL (160-400); Red Blood Count 4.94 X10*6/uL (4.20-5.50); Red Cell Distribution Width 13.5 % (11.0-16.0); White Blood Count 8.1 X10*3/uL (4.8-10.8)
[2024-04-21 16:11] LABS: HCG Quantitative < 2 mIU/mL; TSH reflex Free T4 0.45 uIU/mL (0.32-4.0)
[2024-04-22 19:18] LABS: Follicle Stimulating Hormone 21.6 mIU/mL; Lutenizing Hormone 6.2 mIU/mL; Prolactin 3.4 ng/mL
== END 2024-04-21 14:20 | disposition home or self-care (01) ==
LOC: HO.LAB 14:19
PROVIDERS: PCP Internal Medicine; Visit Provider Obstetrics & Gynecology
DX: N93.9 Abnormal uterine and vaginal bleeding, unspecified (principal); N76.0 Acute vaginitis
CPT/HCPCS: 83001; 83002; 84146; 84443; 84702; 85027

== ENCOUNTER 2024-05-02 11:02 | Outpatient (REF) | payer OTHER, SELFPAY | END 2024-05-02 11:03 | disposition home or self-care (01) | LOC: HO.US 11:02 | PROVIDERS: PCP Internal Medicine; Visit Provider Obstetrics & Gynecology | DX: N93.9 Abnormal uterine and vaginal bleeding, unspecified (principal) | CPT/HCPCS: 76830; 76856 ==

== ENCOUNTER 2024-05-08 09:45 | Outpatient (REF) | payer OTHER, SELFPAY ==
[2024-05-08 14:55] LABS: Bacterial Vaginosis PCR NEGATIVE (Negative); Candida Group PCR NOT DETECTED (Not Detect); Candida glab krusei PCR NOT DETECTED (Not Detect); Trichomonas vaginalis PCR NOT DETECTED (Not Detect)
[2024-05-08 17:19] LABS: CT PCR NOT DETECTED (Not Detect.); NG PCR NOT DETECTED (Not Detect.)
== END 2024-05-08 09:46 | disposition home or self-care (01) ==
LOC: HO.LNP 09:45
PROVIDERS: Obstetrics & Gynecology; PCP Internal Medicine; Visit Provider Urology
DX: Z11.3 Encounter for screening for infections with a predominantly sexual mode of transmission (principal); N39.0 Urinary tract infection, site not specified; N39.3 Stress incontinence (female) (male); R39.15 Urgency of urination; R35.0 Frequency of micturition; N93.9 Abnormal uterine and vaginal bleeding, unspecified; N76.0 Acute vaginitis; R30.0 Dysuria; Z32.02 Encounter for pregnancy test, result negative; Z13.9 Encounter for screening, unspecified; Z79.899 Other long term (current) drug therapy
CPT/HCPCS: 0352U; 81003; 81025; 87086; 87491; 87591; 99212

== ENCOUNTER 2024-05-08 09:45 | Outpatient (AMB) | payer OTHER, SELFPAY ==
--- NOTE | 2024-05-07 18:46 | MHC.OFFVIS ---
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: No Allergies SEAFOOD Allergy (Intermediate, Uncoded 05/08/24 09:52) UNKNOWN Medication List - Last Reconciled 05/08/24 by Nancy Sandoval MD albuterol sulfate 90 mcg/actuation 1 puff inhalation Q4H PRN clotrimazole-betamethasone 1-0.05 % 1 appl topical BID 5 days estradiol (Vagifem) 10 mcg vaginally use daily for one week then use 2x week; ferrous sulfate 325 mg PO TID 30 days naproxen 500 mg PO BID nitrofurantoin macrocrystal 50 mg orally use after intercourse as directed; must administer with a meal/food phenazopyridine (Pyridium) 200 mg PO BID PRN sertraline 50 mg PO DAILY solifenacin (Vesicare) 10 mg PO BEDTIME terconazole 0.8% 1 appful vaginal BEDTIME 3 days HPI Comments Details: 05/08/24--3 month FU on vesicare. Eugenia is a 48-year-old female who is here for follow-up. She states that she thinks she has another UTI because she has burning when she urinates. She states that after intercourse she also has burning. She states that she was treated with metronidazole for vaginal infection recently. 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 I have discussed urinalysis today is negative but we will send it for surveillance culture. I have discussed use of vaginal estrogen therapy. Benefits include maintaining normal pH balance and supporting vaginal mucosa. She states that the VESIcare is working well for her bladder spasms. Plan low-dose antibiotic after intercourse, Vagifem therapy, continue VESIcare, urine culture surveillance. Will check in with her in 12 weeks to re-evaluate symptoms. Review of chart: 02/07/24--Eugenia is here for office cystoscopy. Cystoscopy findings: no suspicious bladder lesions. Vesicare 10 mg qhs for oab symptoms. 12/21/23--Eugenia is a 48-year-old female who states that for the last 6 months she has been noticing worsening urinary leakage. She states that she had a UTI about 2 months ago she was treated with antibiotics. She has a history of 5 vaginal pregnancies her last baby was about 9 lb. She states that she leaks with laughing and feels that she is going more frequently with a strong urge to urinate. Nocturia times 1-2. Urinalysis negative blood. Bladder scan PVR 0 mL Will send surveillance urine culture. I have discussed a trial of an anticholinergic, VESIcare 10 mg at bedtime. I will refer her to pelvic floor physical therapy. We will check a renal bladder ultrasound and follow-up office cystoscopy, pelvic exam at that time. [facility] Medical History Frequency of urination Urinary incontinence in female YELITZA III (cervical intraepithelial neoplasia grade III) with severe dysplasia Asthma Surgical History Hx of tubal ligation Social History Alcohol intake: current Alcohol intake frequency: a few times a month Alcohol type: beer and wine Patient Tobacco Use Status: Never used Tobacco Current occupational status: unemployed Female Reproductive History Menstrual Age of Menarche: 13 Review of Systems Const All systems reviewed & are unremarkable except as noted in HPI and below Reports no additional complaints Eyes Reports no additional complaints ENT Reports no additional complaints Card Reports no additional complaints Resp Reports no additional complaints GI Reports no additional complaints Reports as per HPI Musc Reports no additional complaints Skin/Breast Reports system reviewed and no additional complaints, except as documented Neuro Reports no additional complaints Psych Reports no additional complaints Endo Reports no additional complaints Jarod/Lymph Reports no additional complaints Aller/Immun Reports no additional complaints Results AMB Urinalysis, Automated UA Leukoctes 0 Mychal/uL Last Edit by SERA Rodriguez on 05/08/24 10:18 UA Nitrite Negative Last Edit by SERA Rodriguez on 05/08/24 10:18 UA Urobilinogen 0.2 mg/dL Last Edit by SERA Rodriguez on 05/08/24 10:18 UA Protein 0 mg/dL Last Edit by SERA Rodriguez on 05/08/24 10:18 UA pH 6.0 Last Edit by SERA Rodriguez on 05/08/24 10:18 UA Blood 0 Marcellus/uL Last Edit by Jem Batista [facility] on 05/08/24 10:18 UA Specific [place] 1.020 Last Edit by SERA Rodriguez on 05/08/24 10:18 UA Ketone Negative Last Edit by Jem Batista [facility] on 05/08/24 10:18 UA Bilirubin 0 mg/dL Last Edit by Jem Batista [facility] on 05/08/24 10:18 UA Glucose 0 mg/dL Last Edit by Jem Batista [facility] on 05/08/24 10:18 Results Reviewed Results Reviewed: Laboratory Last Values Urine pH (Auto) 6.0 05/08/24 10:18 Specific [place] (Auto) 1.020 05/08/24 10:18 Urine Protein (Auto) 0 mg/dL 05/08/24 10:18 Glucose (UA)(Auto) 0 mg/dL 05/08/24 10:18 Urine Ketones (Auto) Negative 05/08/24 10:18 Urine Blood (Auto) 0 Marcellus/uL 05/08/24 10:18 Urine Nitrite (Auto) Negative 05/08/24 10:18 Urine Bilirubin (Auto) 0 mg/dL 05/08/24 10:18 Urine Urobilinogen (Auto) 0.2 mg/dL 05/08/24 10:18 Leukocyte Esterase (Auto) 0 Mychal/uL 05/08/24 10:18 Assessment & Plan Assessment & Plan (1) LEESA (stress urinary incontinence, female): Code(s): N39.3 - Stress incontinence (female) (male) Category: Medical (2) Urinary urgency: Code(s): R39.15 - Urgency of urination Category: Medical (3) Frequency of urination: Code(s): R35.0 - Frequency of micturition Category: Medical (4) Dysuria: Code(s): R30.0 - Dysuria Category: Medical Plan 3 months FU. I have discussed use of vaginal estrogen therapy. Benefits include maintaining normal pH balance and supporting vaginal mucosa. She states that the VESIcare is working well for her bladder spasms. Plan low-dose antibiotic after intercourse, Vagifem therapy, continue VESIcare, urine culture surveillance. Pyridium p.r.n. for dysuria. Will check in with her in 12 weeks to re-evaluate symptoms. Orders: Orders AMB Urinalysis Automated Today Z13.9 - Encounter for screening, unspecified Medications: New estradiol (Vagifem) 10 mcg vaginally use daily for one week then use 2x week; 30 tabs 1RF nitrofurantoin macrocrystal 50 mg orally use after intercourse as directed; must administer with a meal/food 30 caps 3RF Refilled phenazopyridine (Pyridium) Must take with food/meal 200 mg PO BID PRN 30 tabs 0RF urinary burning solifenacin (Vesicare) 10 mg PO BEDTIME 90 tabs 3RF Patient Instructions: The patient had an opportunity to ask questions regarding treatment plan. The patient expressed understanding and agreement with the above treatment plan. The patient is aware they should contact our office by phone for worsening of their current condition or the appearance of new symptoms. Compliance is encouraged with any medications and followup testing that is ordered. It is a privilege to be allowed the opportunity to participate in the urologic care of your patient. If you have any questions or concerns regarding treatment for the above conditions please do not hesitate to contact me. The office telephone contact is [phone]. This note is constructed in part using voice recognition software. While every effort has been made to ensure accuracy escape wheel tooth cutter errors may have been included. Yours sincerely, Nancy Sandoval MD Coding Level of Care Code Est Pt Level 4 (86309) Diagnoses LEESA (stress urinary incontinence, female) N39.3 Urinary urgency R39.15 Frequency of urination R35.0 Dysuria R30.0
== END 2024-05-08 11:01 | disposition home or self-care (01) ==
LOC: HO.HUSH 09:45
PROVIDERS: PCP Internal Medicine; Visit Provider Urology
DX: N39.3 Stress incontinence (female) (male) (principal); R39.15 Urgency of urination; R35.0 Frequency of micturition; R30.0 Dysuria; Z13.9 Encounter for screening, unspecified
CPT/HCPCS: 99214

== ENCOUNTER 2024-05-08 10:51 | Outpatient (AMB) | payer OTHER, SELFPAY ==
--- NOTE | 2024-05-08 10:57 | MHC.OFFVIS ---
Vital Signs 05/08/24 11:01 Height 5 ft 4 in Weight 202 lb 13.204 oz BMI 34.8 Intake Visit Reasons: EMB Manager Philosophy Required: No Information Interpreted: non-clinical & clinical Correspondence Section Supervisor: Correspondence Section Supervisor Present (Anahy Gonzalez MADDIMarta) Accompanied by: Self / Same As Patient Allergies SEAFOOD Allergy (Intermediate, Uncoded 05/08/24 11:02) UNKNOWN Is last menstrual period known: Yes Last menstrual period: 04/29/20 Post menopausal: No Patient : No Do you need a note to return to daycare/school/sports/work: Yes (for surgery on sunday) HPI Comments Details: Presenting for EMB. Ultrasound report is not available, unofficial reading shows a 0.4 cm endometrial structure Complaining of vulvovaginal burning no associated foul odor or discharge PFSH Medical History Frequency of urination Urinary incontinence in female YELITZA III (cervical intraepithelial neoplasia grade III) with severe dysplasia Asthma Surgical History Hx of tubal ligation Social History Alcohol intake: current Alcohol intake frequency: a few times a month Alcohol type: beer and wine Patient Tobacco Use Status: Never used Tobacco Current occupational status: unemployed Female Reproductive History Menstrual Age of Menarche: 13 Date of last menstrual period: 04/29/20 Total pregnancies: 2 Full term: 2 Review of Systems Const All systems reviewed & are unremarkable except as noted in HPI and below Card Reports as per HPI and Reports no additional complaints Resp Reports as per HPI and Reports no additional complaints GI Reports as per HPI and Reports no additional complaints Reports as per HPI Physical Exam Vital Signs: BMI result Body Mass Index 34.8 Const General: cooperative, healthy appearing and comfortable Chest Chest palpation & inspection: normal inspection of the chest and normal palpation of entire chest wall Breast/axilla inspection: normal inspection of the breasts and normal inspection of the axillae Breast/axilla palpation: normal palpation of the breasts, normal palpation of the axillae and no axillary lymphadenopathy Resp Effort & Inspection: normal respiratory effort Auscultation: clear to auscultation bilaterally Percussion: percussion normal Cardio Palpation: normal PMI Rate: regular rate Rhythm: regular rhythm Heart sounds: no murmurs and no rubs Peripheral pulses: Peripheral pulses 2+ throughout GI Inspection: Yes normal to inspection Palpation (GI): Soft to palpation, nontender, no guarding, not rigid and No hepatosplenomegaly present Percussion: Yes normal to percussion Auscultation: normal bowel sounds Rectal Exam - Female: deferred General: Yes no CVA tenderness External Female Exam: normal external appearance and normal appearance of the urethra Speculum Exam - Vagina: normal appearance of the vagina, normal palpation, no lesions and no masses Speculum Exam - Cervix: normal appearance of the cervix, normal palpation, no lesions, no masses and nontender Bimanual exam- vagina & uterus: normal bimanual exam, normal palpation, uterine size normal, normal palpation, uterine shape normal, No Cervical tenderness present and non-tender Bimanual Exam- Adnexa, other: normal adnexae Back/Spine/Pelvis Back: no CVA tenderness Results AMB Urinalysis, Automated UA Leukoctes 0 Mychal/uL Last Edit by SERA Rodriguez on 05/08/24 10:18 UA Nitrite Negative Last Edit by SERA Rodriguez on 05/08/24 10:18 UA Urobilinogen 0.2 mg/dL Last Edit by SERA Rodriguez on 05/08/24 10:18 UA Protein 0 mg/dL Last Edit by SERA Rodriguez on 05/08/24 10:18 UA pH 6.0 Last Edit by SERA Rodriguez on 05/08/24 10:18 UA Blood 0 Marcellus/uL Last Edit by SERA Rodriguez on 05/08/24 10:18 UA Specific [place] 1.020 Last Edit by SERA Rodriguez on 05/08/24 10:18 UA Ketone Negative Last Edit by SERA Rodriguez on 05/08/24 10:18 UA Bilirubin 0 mg/dL Last Edit by SERA Rodriguez on 05/08/24 10:18 UA Glucose 0 mg/dL Last Edit by SERA Rodriguez on 05/08/24 10:18 AMB Test Urine AMB Test Urine Negative Last Edit by Anahy Gonzalez CMA on 05/08/24 11:06 Results Reviewed Results Reviewed: Laboratory Last Values [facility]st Clinic Negative 05/08/24 11:06 Assessment & Plan Assessment & Plan (1) Abnormal uterine bleeding: Comment: Status post NovaSure ablation Abnormal endometrium 0.4 cm endometrium Code(s): N93.9 - Abnormal uterine and vaginal bleeding, unspecified Category: Medical Plan: Discussed with the patient the finding on ultrasound showing a 0.4 cm endometrial structure, differential diagnosis discussed with the patient include endometrial hyperplasia or malignancy, endometrial polyp or endometrial adhesions secondary to previous endometrial ablation. Recommended hysteroscopy D&C possible polypectomy/myomectomy. Discussed with the patient the procedure , all benefits and risks including but not limited to inability to complete the procedure , insufficient endometrial tissue for a complete evaluation of the endometrial cavity , bleeding, infection, possible need for blood transfusion with all its risk ( HIV,syphilis, Hepatitis, anaphylaxis shock, others..), injury to bladder, rectum, possible need for laparoscopy/laparotomy or hysterectomy. The patient verbalized understanding and signed the consent. Instructions given the patient to stay NPO after midnight the day prior to the procedure and to take only the specific medication (s) discussed the morning of the surgical procedure and to schedule a 2 week postoperative appointment (2) Vulvovaginitis: Code(s): N76.0 - Acute vaginitis Category: Medical Plan: GC/CT, Bacterial Vaginosis panel taken, Terazol 0.8% q.h.s. for 3 days was sent to the patient's pharmacy. The patient was instructed to call if symptoms don't improve in 48 hours. Orders: Orders AMB HCG Urine Test Today Z32.02 - Encounter for test, result negative Medications: Refilled terconazole 0.8% 1 appful vaginal BEDTIME 3 days 20 grams 0RF Coding Level of Care Code Est Pt Level 3 (73713) Diagnoses Abnormal uterine bleeding N93.9 Vulvovaginitis N76.0
[2024-05-08 11:01] VITALS: BMI 34.8
== END 2024-05-08 11:53 | disposition home or self-care (01) ==
LOC: HO.HWS 10:51
PROVIDERS: PCP Internal Medicine; Visit Provider Obstetrics & Gynecology
DX: N93.9 Abnormal uterine and vaginal bleeding, unspecified (principal); N76.0 Acute vaginitis; Z32.02 Encounter for pregnancy test, result negative
CPT/HCPCS: 99213

== ENCOUNTER 2024-05-27 12:10 | Day surgery (SDC) | payer OTHER, SELFPAY ==
[2024-05-22 13:00] VITALS: BMI 34.8
--- NOTE | 2024-05-27 12:34 | PC.NURSE ---
dr. baron request urine hcg even with BTL
[2024-05-27 12:38] VITALS: BMI 34.3
[2024-05-27 12:48] LABS: UPreg QC Valid YES; Urine Pregnancy NEGATIVE (NEGATIVE)
[2024-05-27 13:10] VITALS: BP 129/74; PULSE 62; RESP 18; TEMP 36.6; O2SAT 100
[2024-05-27] MEDS: Lactated Ringers 1,000 ML 50 ML IVCONT (13:10)
--- NOTE | 2024-05-27 13:30 | HO.ANESPROP2 ---
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 (Acute) Bacterial vaginosis (Acute) YELITZA III (cervical intraepithelial neoplasia grade III) with severe dysplasia (Acute) Abnormal uterine bleeding (Acute) COVID-19 (Acute) Frequency of urination (Acute) Urinary incontinence in female (Acute) Past Medical History Medical History Frequency of urination Urinary incontinence in female YELITZA III (cervical intraepithelial neoplasia grade III) with severe dysplasia Asthma Surgical History Surgical History History of dilatation and curettage Hx of tubal ligation History of Problems with Anesthesia: No Social History Social History Are you a primary health careers instructor to a significant other at home: No Do you presently have visiting nurse or other home services: No Alcohol intake: current Alcohol intake frequency: a few times a month Alcohol type: beer and wine Patient Tobacco Use Status: Never used Tobacco Have you been hit, kicked, punched, or otherwise hurt by someone within the past year? If so, by whom?: No Are you DNR?: No Advance Directives: No Advance Directives Information Provided: Yes Recently lost weight without trying: No Nutrition Risks: No Nutritional Risk FDLMP: begin of month Current occupational status: unemployed Meds Allergies Allergy/AdvReac Type Severity Reaction Status Date / Time seafood Allergy Intermediate Angioedema Verified 05/27/24 13:11 Active Medications: Current Medications Lactated Ringer's (Lr) 1,000 mls @ 50 mls/hr IVCONT .Q20H CHEYANNE Last Admin: 05/27/24 13:10 Dose: 50 mls/hr Home Medications ?Medication ?Instructions ?Recorded ?Confirmed ?Last Taken ?Type albuterol sulfate 90 mcg/actuation 1 puff inhalation Q4H PRN Wheezing 05/29/20 05/22/24 Unknown History aerosol inhaler acetaminophen 500 mg tablet 500 mg PO Q6H 05/22/24 05/22/24 Unknown History duloxetine 20 mg capsule,delayed mg PO 05/22/24 Unknown History release fluticasone furoate 200 1 inh inhalation DAILY 05/22/24 05/22/24 Unknown History mcg/actuation blister powder for inhalation (Arnuity Ellipta) fluticasone propionate 50 1 spray intranasal DAILY 05/22/24 05/22/24 Unknown History mcg/actuation nasal spray,suspension gabapentin 100 mg capsule 100 mg PO 05/22/24 Unknown History loratadine 10 mg tablet (Claritin) 10 mg PO DAILY 05/22/24 05/22/24 Unknown History melatonin 3 mg tablet 3 mg PO QPM 05/22/24 05/22/24 Unknown History montelukast 10 mg tablet 10 mg PO BEDTIME 05/22/24 05/22/24 Unknown History Exam Height,Weight and Vital Signs: Height 5 ft 4 in Weight 90.718 kg Last Vital Signs Temp 97.9 F 05/27/24 13:10 Pulse 62 05/27/24 13:10 Resp 18 05/27/24 13:10 BP 129/74 05/27/24 13:10 Pulse Ox 100 05/27/24 13:10 O2 Del Method Room Air 05/27/24 13:10 Pertinent Lab Results Pertinent Lab Results: Laboratory Tests 05/27/24 12:30 Urine Test NEGATIVE Airway Mallampati Class: II TM Dist: >3cm Neck ROM: Full Denture: Upper Loose/Missing/Broken Teeth: No Heart: RRR Lungs: CTA Assessment and Plan Assessment Anesthesia Assessment: Anesthesia Plan Discussed and Chart Reviewed Final Anesthetic Review History of Problems with Anesthesia: No NPO: Yes ASA Class: II Final Preanesthetic Review: Meds/Allgs Chart Reviewed, Consent Obtained/Reviewed and Anes Risks/Benef Reviewed Patient Risk: Low Procedure Risk: Low Anesthetic Plan Anesthetic Plan: GA Disposition: Standard PACU
--- NOTE | 2024-05-27 13:51 | MHC.SHP ---
Pre-Procedural Eval Section A - 24 Hr Update-Section A only Date of Service: 05/27/24 The patient is an INPATIENT: No Changes since office visit: No Cold of Flu in the past 2 weeks, No New Medical Problems, No Changes in Medication and No Patient answered all questions The patient has been examined within 24 hours of the surgical procedure. The History & Physical has been completed within 30 days and I have reviewed it.: Yes Section B - Complete if H&P > 30 days Chief Complaint: Abnormal uterine and vaginal bleeding, unspecified Allergies: Allergies Allergy/AdvReac Type Severity Reaction Status Date / Time seafood Allergy Intermediate Angioedema Verified 05/27/24 13:11 Plan Diagnosis/Plan: Unchanged I have reviewed the history and physical and performed a pertinent physical examination on my patient. No changes have occurred unless specified. Time Spent With Patient Time: Total time managing care of this patient today ____ minutes.
--- NOTE | 2024-05-27 14:30 | P.BOP_ITS ---
Brief Operative Note Date of Service: 05/27/24 Pre-op diagnosis: Abnormal uterine bleeding Previous endometrial ablation Post-op diagnosis: same (Intrauterine adhesions) Procedure: Hysteroscopy D&C Surgeon: Warren Ho MD Anesthesia: GLMA Was an Office Systems Technology Instructor used for this Procedure?: No Estimated blood loss (mL): 0 Pathology: other (Endometrial Scrapping) Condition: stable Disposition: PACU
--- NOTE | 2024-05-27 14:33 | W.PM.OPN ---
Operative Note Operative Note Date of Service: 05/27/24 Narrative: Preop Diagnosis: Abnormal uterine bleeding Operation: Diagnostic Hysteroscopy, Dilataion & Curettage Post Op Diagnosis: Extending Intrauterine adhesions secondary to previous endometrial ablation QBL: Minimal Anesthesia: GLMA Surgeon: Warren Ho MD Pipeline Inspector: None Complication: None Pathology: Endometrial Scrapings Procedure: The patient was put in the dorsal lithotomy position, scrubbed, and draped in the usual manner. A sterile speculum was inserted in the patient's vagina. The anterior lip of the cervix was grasped with a single tooth tenaculum. The cervix was dilated up to 5 mm, then the scope was inserted in the patient's uterus. Inspection revealed extensive intrauterine adhesions. The scope was taken out of the uterine cavity , then sharp curetting was carried on with no complications. Minimal tissues were retrieved due to intrauterine adhesions. At the end of the procedure, all instruments were taken out of the patient uterine and vaginal cavity. The single tooth tenaculum was removed and homeostasis was assured using pressure. The patient tolerated the procedure well and was transferred to the PACU in a stable condition.
[2024-05-27 14:35] VITALS: BP 105/71; PULSE 94; RESP 18; TEMP 36.3; O2SAT 98
[2024-05-27 14:40] VITALS: BP 138/78; PULSE 62; RESP 18; O2SAT 97
[2024-05-27] MEDS: oxyCODONE HCl Immed Release 5 MG TABLET PO (14:43)
[2024-05-27 14:45] VITALS: BP 145/98; PULSE 61; RESP 18; O2SAT 99
[2024-05-27 14:50] VITALS: BP 140/96; PULSE 54; RESP 18; O2SAT 100
[2024-05-27 15:05] VITALS: BP 143/95; PULSE 54; RESP 18; TEMP 36.1; O2SAT 99
== END 2024-05-27 16:00 | disposition home or self-care (01) ==
PROVIDERS: Anesthesiology; PCP Internal Medicine; Visit Provider Obstetrics & Gynecology
PROC: 0UDB8ZZ Extraction of Endometrium, Via Natural or Artificial Opening Endoscopic (ICD-10-PCS; CPT 58558; principal; 2024-05-27 14:00)
DX: N93.9 Abnormal uterine and vaginal bleeding, unspecified (principal); N85.6 Intrauterine synechiae; N76.0 Acute vaginitis; D06.9 Carcinoma in situ of cervix, unspecified; R32 Unspecified urinary incontinence; R35.0 Frequency of micturition; J45.909 Unspecified asthma, uncomplicated; Z79.51 Long term (current) use of inhaled steroids; Z79.899 Other long term (current) drug therapy; Z98.51 Tubal ligation status; Z98.890 Other specified postprocedural states; Z56.0 Unemployment, unspecified
CPT/HCPCS: 58558; 81025; 88305; J1100; J1885; J2003; J2250; J2405; J2704; J3010

== ENCOUNTER → 2024-05-27 12:10 | Outpatient (BNV) | payer OTHER, SELFPAY | PROVIDERS: PCP Internal Medicine; Visit Provider Obstetrics & Gynecology | DX: N93.9 Abnormal uterine and vaginal bleeding, unspecified (principal) | CPT/HCPCS: 58558 ==

== ENCOUNTER 2024-06-17 09:47 | Outpatient (AMB) | payer OTHER, SELFPAY ==
--- NOTE | 2024-06-17 09:47 | A.OFFVIS_ITS ---
Vital Signs 06/17/24 09:48 Height 5 ft 4 in Weight 200 lb BMI 34.3 Intake Visit Reasons: vaginal itch Spanish Lecturer Required: No Information Interpreted: non-clinical & clinical Unarmed Security Officer: Unarmed Security Officer Present (Anahy WILLAMS) Accompanied by: Self / Same As Patient Allergies seafood Allergy (Intermediate, Verified 06/17/24 09:49) Angioedema HPI Comments Details: Presenting complaining of vulvovaginal itching with no foul odor PFSH Medical History Frequency of urination Urinary incontinence in female YELITZA III (cervical intraepithelial neoplasia grade III) with severe dysplasia Asthma Surgical History History of dilatation and curettage Hx of tubal ligation Social History Are you a primary hospice care sales consultant to a significant other at home: No Do you presently have visiting nurse or other home services: No Alcohol intake: current Alcohol intake frequency: a few times a month Alcohol type: beer and wine Patient Tobacco Use Status: Never used Tobacco Current occupational status: unemployed Female Reproductive History Menstrual Age of Menarche: 13 Review of Systems Const All systems reviewed & are unremarkable except as noted in HPI and below Physical Exam Vital Signs: BMI result Body Mass Index 34.3 General: Yes no CVA tenderness External Female Exam: normal external appearance and normal appearance of the urethra Speculum Exam - Vagina: normal appearance of the vagina, normal palpation, no lesions and no masses Speculum Exam - Cervix: normal appearance of the cervix, normal palpation, no lesions, no masses and nontender Bimanual exam- vagina & uterus: normal bimanual exam, normal palpation, uterine size normal, normal palpation, uterine shape normal, No Cervical tenderness present and non-tender Bimanual Exam- Adnexa, other: normal adnexae Back/Spine/Pelvis Back: no CVA tenderness Assessment & Plan Assessment & Plan (1) Vulvovaginitis: Code(s): N76.0 - Acute vaginitis Category: Medical Plan: GC/CT, Bacterial Vaginosis panel taken, Terazol 0.8% q.h.s. for 3 days was sent to the patient's pharmacy. The patient was instructed to call if symptoms don't improve in 48 hours. Medications: New terconazole 0.8% 1 appful vaginal BEDTIME 3 days 20 grams 0RF Coding Level of Care Code Est Pt Level 3 (50015) Diagnoses Vulvovaginitis N76.0
[2024-06-17 09:48] VITALS: BMI 34.3
== END 2024-06-17 10:07 | disposition home or self-care (01) ==
LOC: HO.HWS 09:47
PROVIDERS: PCP Internal Medicine; Visit Provider Obstetrics & Gynecology
DX: N76.0 Acute vaginitis (principal)
CPT/HCPCS: 99213

== ENCOUNTER 2024-06-17 09:47 | Outpatient (REF) | payer OTHER, SELFPAY ==
[2024-06-17 18:14] LABS: Bacterial Vaginosis PCR NEGATIVE (Negative); Candida Group PCR NOT DETECTED (Not Detect); Candida glab krusei PCR NOT DETECTED (Not Detect); Trichomonas vaginalis PCR NOT DETECTED (Not Detect)
[2024-06-18 12:02] LABS: CT PCR NOT DETECTED (Not Detect.); NG PCR NOT DETECTED (Not Detect.)
== END 2024-06-17 09:48 | disposition home or self-care (01) ==
LOC: HO.LNP 09:47
PROVIDERS: PCP Internal Medicine; Visit Provider Obstetrics & Gynecology
DX: N76.0 Acute vaginitis (principal); Z11.3 Encounter for screening for infections with a predominantly sexual mode of transmission
CPT/HCPCS: 0352U; 87491; 87591; 99212

== ENCOUNTER 2024-07-07 07:25 | Outpatient (AMB) | payer OTHER, SELFPAY ==
--- NOTE | 2024-07-07 07:25 | MHC.OFFVIS ---
Intake Visit Reasons: ultrasound follow up Intake Note: [phone] Allergies seafood Allergy (Intermediate, Verified 06/17/24 09:49) Angioedema HPI Comments Details: The patient scheduled a telehealth visit for follow-up to discuss the results of her abnormal uterine bleeding workup and options of treatment. The following workup was done.: H&H= 14.5/44.3 TSH, prolactin, hCG, GC and chlamydia were negative. FSH/LH =21.6/6.2 Hysteroscopy/D&C was done, showed extensive adhesions in the uterine cavity secondary to previous endometrial ablation, the pathology showed the following: Endometrium, curettage: Predominantly blood and benign endocervical glandular epithelium, with scant benign squamous epithelium and very scant atrophic endometrium, insufficient for endometrial evaluation Co testing was done in 06/22 was negative. Mammogram was in 06/22 was BI-RADS 1 Pelvic ultrasound showed the following: IMPRESSION: 1. Small amount of fluid within the endometrial canal. Consider correlation with follow-up ultrasound in 6-8 weeks. 2. Echogenic focus 4 mm within the endometrium likely calcification, questionable significance. 3. Cystic structure left ovary likely dominant physiologic follicle 2 cm. [facility] Medical History Frequency of urination Urinary incontinence in female YELITZA III (cervical intraepithelial neoplasia grade III) with severe dysplasia Asthma Surgical History (Updated 07/07/24 @ 07:50 by Warren Ho MD) History of endometrial ablation History of dilatation and curettage Hx of tubal ligation Social History Are you a primary personal care service provider to a significant other at home: No Do you presently have visiting nurse or other home services: No Alcohol intake: current Alcohol intake frequency: a few times a month Alcohol type: beer and wine Patient Tobacco Use Status: Never used Tobacco Current occupational status: unemployed Female Reproductive History Menstrual Age of Menarche: 13 Review of Systems Const All systems reviewed & are unremarkable except as noted in HPI and below Reports as per HPI and Reports no additional complaints GI Reports no additional complaints Reports no additional complaints Telehealth Telehealth Telehealth Platform: [facility] Location of provider rendering services: practice address Location of patient: address on file Patient Identification confirmed using: Name, : Yes Telehealth method: video Patient verbally consented to treatment: Yes Patient verbally consented to billing insurance company: Yes Patient informed of any privacy concerns related to visit: Yes Assessment & Plan Assessment & Plan (1) Abnormal uterine bleeding: Comment: Status post NovaSure ablation Abnormal endometrium 0.4 cm endometrium Code(s): N93.9 - Abnormal uterine and vaginal bleeding, unspecified Category: Medical Plan: Discussed with the patient the results of the work up done including endometrial biopsy showing scant endometrial tissue insufficient for endometrial ablation. Explained to the patient that endometrial pathology including endometrial hyperplasia and/or malignancy has not been ruled out because of scant endometrial tissues and intrauterine adhesions, Recommended referral to a tertiary care center where more resources are available, [facility] , for further management. The patient understands that endometrial pathology has not been ruled out would like to hold off the referral would like to think about it at this point and stated that she will call back. All questions answered verbalized understanding. I spent a total of 20 minutes reviewing the chart, talking to the patient via video and documenting in the medical record. Coding Level of Care Code Tele Est Pt Level 3 (08278) Diagnoses Abnormal uterine bleeding N93.9
== END 2024-07-07 14:08 | disposition home or self-care (01) ==
LOC: HO.HWS 07:25
PROVIDERS: PCP Internal Medicine; Visit Provider Obstetrics & Gynecology
DX: N93.9 Abnormal uterine and vaginal bleeding, unspecified (principal)
CPT/HCPCS: 99213

== ENCOUNTER 2024-08-06 12:16 | Outpatient (REF) | payer OTHER, SELFPAY ==
[2024-08-07 04:52] LABS: CT PCR NOT DETECTED (Not Detect.); NG PCR NOT DETECTED (Not Detect.)
== END 2024-08-06 12:17 | disposition home or self-care (01) ==
LOC: HO.LNP 12:16
PROVIDERS: Visit Provider Obstetrics & Gynecology
DX: R10.2 Pelvic and perineal pain (principal); Z11.3 Encounter for screening for infections with a predominantly sexual mode of transmission
CPT/HCPCS: 87491; 87591

== ENCOUNTER → 2024-08-06 13:30 | Outpatient (BNV) | payer OTHER, SELFPAY | PROVIDERS: PCP Internal Medicine; Visit Provider Internal Medicine | DX: Z12.31 Encounter for screening mammogram for malignant neoplasm of breast (principal) | CPT/HCPCS: 77063; 77067 ==

== ENCOUNTER 2024-08-07 13:23 | Outpatient (AMB) | payer OTHER, SELFPAY ==
--- NOTE | 2024-08-07 13:34 | A.OFFVIS_ITS ---
Intake Visit Reasons: 3m follow up Intake Note: Patient is Present for Telephone Follow Up Urology Med:Vesicare Antibiotic Allergy: None Blood Thinner:None Occupational Therapy Professor Required: No Accompanied by: Self / Same As Patient Allergies seafood Allergy (Intermediate, Verified 08/07/24 13:40) Angioedema HPI Comments Details: 08/07/24--Eugenia is a 48-year-old female who is here for Teleheath fu. She states that after intercourse she has burning. She states that she was treated with metronidazole for vaginal infection and is being followed by repair specialist. She states that the VESIcare is working well for her bladder spasms. Cont low-dose antibiotic after intercourse, Vagifem therapy, continue VESIcare. 05/08/24--3 month FU on vesicare. Eugenia is a 48-year-old female who is here for follow-up. She states that she thinks she has another UTI because she has burning when she urinates. She states that after intercourse she also has burning. She states that she was treated with metronidazole for vaginal infection recently. She has follow-up today with her repair specialist. I have discussed urinalysis today is negative but we will send it for surveillance culture. Glo spence discussed use of vaginal estrogen therapy. Benefits include maintaining normal pH balance and supporting vaginal mucosa. She states that the VESIcare is working well for her bladder spasms. Plan low-dose antibiotic after intercourse, Vagifem therapy, continue VESIcare, urine culture surveillance. Will check in with her in 12 weeks to re-evaluate symptoms. 02/07/24--Eugenia is here for office cystoscopy. Cystoscopy findings: no suspicious bladder lesions. Vesicare 10 mg qhs for oab symptoms. 12/21/23--Eugenia is a 48-year-old female who states that for the last 6 months she has been noticing worsening urinary leakage. She states that she had a UTI about 2 months ago she was treated with antibiotics. She has a history of 5 vaginal pregnancies her last baby was about 9 lb. She states that she leaks with laughing and feels that she is going more frequently with a strong urge to urinate. Nocturia times 1-2. Urinalysis negative blood. Bladder scan PVR 0 mL Will send surveillance urine culture. I have discussed a trial of an anticholinergic, VESIcare 10 mg at bedtime. I will refer her to pelvic floor physical therapy. We will check a renal bladder ultrasound and follow-up office cystoscopy, pelvic exam at that time. [facility] Medical History Frequency of urination Urinary incontinence in female YELITZA III (cervical intraepithelial neoplasia grade III) with severe dysplasia Asthma Surgical History History of endometrial ablation History of dilatation and curettage Hx of tubal ligation Social History Are you a primary care coordinator to a significant other at home: No Do you presently have visiting nurse or other home services: No Alcohol intake: current Alcohol intake frequency: a few times a month Alcohol type: beer and wine Patient Tobacco Use Status: Never used Tobacco Current occupational status: unemployed Female Reproductive History Menstrual Age of Menarche: 13 Review of Systems Const All systems reviewed & are unremarkable except as noted in HPI and below Reports no additional complaints Eyes Reports no additional complaints ENT Reports no additional complaints Card Reports no additional complaints Resp Reports no additional complaints GI Reports no additional complaints Reports as per HPI Musc Reports no additional complaints Skin/Breast Reports system reviewed and no additional complaints, except as documented Neuro Reports no additional complaints Psych Reports no additional complaints Endo Reports no additional complaints Jarod/Lymph Reports no additional complaints Aller/Immun Reports no additional complaints Telehealth Telehealth Telehealth Platform: [facility] Location of provider rendering services: practice address Location of patient: address on file Patient Identification confirmed using: Name, : Yes Telehealth method: voice only Patient verbally consented to treatment: Yes Patient verbally consented to billing insurance company: Yes Patient informed of any privacy concerns related to visit: Yes Minutes spent on Phone/Video with Pt.: 13 Assessment & Plan Assessment & Plan (1) Urinary urgency: Code(s): R39.15 - Urgency of urination Category: Medical (2) Frequency of urination: Code(s): R35.0 - Frequency of micturition Category: Medical (3) Dysuria: Code(s): R30.0 - Dysuria Category: Medical Plan I have discussed use of vaginal estrogen therapy. low-dose antibiotic after intercourse, Vagifem therapy, continue VESIcare, urine culture surveillance. Pyridium p.r.n. for dysuria. Patient Instructions: The patient had an opportunity to ask questions regarding treatment plan. The patient expressed understanding and agreement with the above treatment plan. The patient is aware they should contact our office by phone for worsening of their current condition or the appearance of new symptoms. Compliance is encouraged with any medications and followup testing that is ordered. It is a privilege to be allowed the opportunity to participate in the urologic care of your patient. If you have any questions or concerns regarding treatment for the above conditions please do not hesitate to contact me. The office telephone contact is [phone]. This note is constructed in part using voice recognition software. While every effort has been made to ensure accuracy game show host errors may have been included. Yours sincerely, Nancy Sandoval MD Coding Level of Care Code Tele Est Pt Level 3 (06735) Diagnoses Urinary urgency R39.15 Frequency of urination R35.0 Dysuria R30.0
== END 2024-08-07 14:19 | disposition home or self-care (01) ==
LOC: HO.HUSH 13:23
PROVIDERS: PCP Internal Medicine; Visit Provider Urology
DX: R39.15 Urgency of urination (principal); R35.0 Frequency of micturition; R30.0 Dysuria
CPT/HCPCS: 99213

== ENCOUNTER → 2024-08-07 13:23 | Outpatient (BNVA) | payer OTHER, SELFPAY | PROVIDERS: PCP Internal Medicine; Visit Provider Urology ==

== ENCOUNTER 2024-08-08 14:06 | Outpatient (REF) | payer OTHER, SELFPAY | END 2024-08-08 14:07 | disposition home or self-care (01) | LOC: HO.US 14:06 | PROVIDERS: Visit Provider Obstetrics & Gynecology | DX: R10.2 Pelvic and perineal pain (principal) | CPT/HCPCS: 76830; 76856 ==

== ENCOUNTER → 2024-08-08 14:08 | Outpatient (BNV) | payer OTHER, SELFPAY | PROVIDERS: PCP Internal Medicine; Visit Provider Specialist | DX: R10.2 Pelvic and perineal pain (principal) | CPT/HCPCS: 76830; 76856 ==

== ENCOUNTER 2024-08-12 09:49 | Outpatient (AMB) | payer OTHER, SELFPAY ==
[2024-08-12 09:52] VITALS: BMI 34.3
--- NOTE | 2024-08-12 09:52 | MHC.OFFVIS ---
Vital Signs 08/12/24 09:52 Height 5 ft 4 in Weight 200 lb BMI 34.3 Intake Visit Reasons: ultrasound Allergies seafood Allergy (Intermediate, Verified 08/07/24 13:40) Angioedema HPI Comments Details: Presenting for follow-up regarding her pelvic pain. The patient is doing well. The following workup was done so far: GC/CT negative. Last visit urine test was negative. Last visit urine dip was negative. Pelvic ultrasound showed the following: Transabdominal scanning performed for overall anatomy. Transvaginal scanning performed for additional detail. Anteverted uterus is 10.3 cm length. Normal myometrium. Endometrium 17 mm thickness. No lesions. Focal submucosal echogenic lesion, possible degenerated leiomyoma. Right ovary 2.0 x 2.3 x 1.8 cm. Left ovary 2.1 x 2.1 x 2.0 cm. Normal color Doppler of both ovaries. No free fluid. [facility] Medical History Frequency of urination Urinary incontinence in female YELITZA III (cervical intraepithelial neoplasia grade III) with severe dysplasia Asthma Surgical History History of endometrial ablation History of dilatation and curettage Hx of tubal ligation Social History Are you a primary assisted living care manager to a significant other at home: No Do you presently have visiting nurse or other home services: No Alcohol intake: current Alcohol intake frequency: a few times a month Alcohol type: beer and wine Patient Tobacco Use Status: Never used Tobacco Current occupational status: unemployed Female Reproductive History Menstrual Age of Menarche: 13 Review of Systems Const All systems reviewed & are unremarkable except as noted in HPI and below Reports as per HPI and Reports no additional complaints GI Reports no additional complaints Reports no additional complaints Physical Exam Vital Signs: BMI result Body Mass Index 34.3 GI Palpation (GI): Soft to palpation, nontender, no guarding and not rigid Assessment & Plan Assessment & Plan (1) Pelvic pain: Code(s): R10.2 - Pelvic and perineal pain Category: Medical Plan: Discussed with the patient the results of the workup done including negative GC/chlamydia, urine dip, urine test and pelvic ultrasound. Differential diagnosis of obstetrics gynecology physician causes that have not be ruled out yet include but not limited to endometriosis, pelvic adhesions , post an ablation syndrome or other. Recommended for the patient to see her PCP for further workup for non obstetrics gynecology physician causes; if the all the results are negative and the patient's pelvic pain is persistent, instructions given to patient to call back for further testing. Meanwhile, instructions were given the patient to go to emergency room or call in case of fever above 100.4, heavy vaginal bleeding, persistence or worsening of her pelvic pain. All questions answered, the patient verbalized understanding. Coding Level of Care Code Est Pt Level 3 (64939) Diagnoses Pelvic pain R10.2
== END 2024-08-12 10:23 | disposition home or self-care (01) ==
LOC: HO.HWS 09:49
PROVIDERS: PCP Internal Medicine; Visit Provider Obstetrics & Gynecology
DX: R10.2 Pelvic and perineal pain (principal)
CPT/HCPCS: 99213

== ENCOUNTER → 2024-08-12 09:49 | Outpatient (BNVA) | payer OTHER, SELFPAY | PROVIDERS: PCP Internal Medicine; Visit Provider Obstetrics & Gynecology | DX: R10.2 Pelvic and perineal pain (principal) | CPT/HCPCS: 99212 ==

== ENCOUNTER 2024-08-28 14:53 | Outpatient (AMB) | payer OTHER, SELFPAY ==
--- NOTE | 2024-08-28 15:51 | MHC.OFFVIS ---
Intake Visit Reasons: ER follow up Allergies seafood Allergy (Intermediate, Verified 08/07/24 13:40) Angioedema HPI Comments Details: Presenting after ER visit to [facility], the patient went to the ER with pelvic pain no records available. 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 Last visit urine test was negative. Last visit urine dip was negative. Pelvic ultrasound showed the following: Transabdominal scanning performed for overall anatomy. Transvaginal scanning performed for additional detail. Anteverted uterus is 10.3 cm length. Normal myometrium. Endometrium 17 mm thickness. No lesions. Focal submucosal echogenic lesion, possible degenerated leiomyoma. Right ovary 2.0 x 2.3 x 1.8 cm. Left ovary 2.1 x 2.1 x 2.0 cm. Normal color Doppler of both ovaries. No free fluid. In addition the patient is being followed up by Urology The pain is persistent mild no nausea or vomiting no vaginal discharge no fever or chills PFSH Medical History Frequency of urination Urinary incontinence in female YELITZA III (cervical intraepithelial neoplasia grade III) with severe dysplasia Asthma Surgical History History of endometrial ablation History of dilatation and curettage Hx of tubal ligation Social History Are you a primary rn coronary care unit to a significant other at home: No Do you presently have visiting nurse or other home services: No Alcohol intake: current Alcohol intake frequency: a few times a month Alcohol type: beer and wine Patient Tobacco Use Status: Never used Tobacco Current occupational status: unemployed Female Reproductive History Menstrual Age of Menarche: 13 Physical Exam GI Palpation (GI): Soft to palpation and nontender Percussion: Yes normal to percussion Auscultation: normal bowel sounds Assessment & Plan Assessment & Plan (1) Pelvic pain: Comment: 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 Discussed with the patient the finding on ultrasound done few weeks ago showing submucosal myoma with possible degeneration measuring 1.5 cm no other abnormalities In addition reviewed with the patient that malignancy and pre malignancy cannot be ruled out without hysterectomy for pathological evaluation ; furthermore, explained to the patient the limitation of pelvic ultrasound and endometrial biopsy in the setting. Will request records from ER visit, the patient was asked to go to [facility] medical record to get all the records including imaging , blood work and notes for her ED visit. Instructions given the patient to go to emergency room in case of fever above 100.4 persistent worsening for pain, nausea or vomiting and schedule a follow-up appoint in 3 days (2) Microscopic hematuria: Code(s): R31.29 - Other microscopic hematuria Category: Medical Plan: Urine dip showed microscopic hematuria, urine culture sent. Will repeat urine dip in 2 weeks. Discussed with the patient the possible causes of microscopic hematuria including but not limited to: interstitial cystitis, polyps, stones, masses, urethral inflammatory processes and others. If Urine Culture is negative and repeat urine dip in 2 weeks shows persistent microscopic hematuria, will proceed with CT abdomen/pelvis and urology referral. Instructions given the patient to schedule a 2 week urine dip follow-up appointment. All questions answered and the patient verbalized understanding. Coding Level of Care Code Est Pt Level 3 (73283) Diagnoses Pelvic pain R10.2 Microscopic hematuria R31.29
== END 2024-08-28 16:11 | disposition home or self-care (01) ==
LOC: HO.HWS 14:53
PROVIDERS: PCP Internal Medicine; Visit Provider Obstetrics & Gynecology
DX: R10.2 Pelvic and perineal pain (principal); R31.29 Other microscopic hematuria; Z32.02 Encounter for pregnancy test, result negative
CPT/HCPCS: 99213

== ENCOUNTER 2024-08-28 14:53 | Outpatient (REF) | payer OTHER, SELFPAY | END 2024-08-28 14:54 | disposition home or self-care (01) | LOC: HO.LNP 14:53 | PROVIDERS: PCP Internal Medicine; Visit Provider Obstetrics & Gynecology | DX: R31.29 Other microscopic hematuria (principal); R10.2 Pelvic and perineal pain | CPT/HCPCS: 81002; 81025; 87086; 99212 ==

== ENCOUNTER 2024-09-01 11:25 | Outpatient (AMB) | payer OTHER, SELFPAY ==
--- NOTE | 2024-09-01 11:57 | MHC.OFFVIS ---
Intake Visit Reasons: follow up er Pierogi Maker: Pierogi Maker Present (Kristi) Accompanied by: Self / Same As Patient Allergies seafood Allergy (Intermediate, Verified 09/01/24 12:03) Angioedema HPI Comments Details: Presenting for emergency room follow-up at [facility] regarding pelvic pain and repeat urine dip for microscopic hematuria. Since then the patient has been doing well with no complaints no pelvic pain, no fever or chills or any other concerns. Review of the emergency room visit records: CT scan and a pelvic ultrasound showing submucosal myoma possibly degenerated with thickened abnormal endometrium. 08/09/2024 pelvic ultrasound done here showed the following: Transabdominal scanning performed for overall anatomy. Transvaginal scanning performed for additional detail. Anteverted uterus is 10.3 cm length. Normal myometrium. Endometrium 17 mm thickness. No lesions. Focal submucosal echogenic lesion, possible degenerated leiomyoma. Right ovary 2.0 x 2.3 x 1.8 cm. Left ovary 2.1 x 2.1 x 2.0 cm. Normal color Doppler of both ovaries. No free fluid. 05/25 hysteroscopy D&C showed extensive intrauterine adhesions secondary to previous endometrial ablation, pathology showed the following: Endometrium, curettage: Predominantly blood and benign endocervical glandular epithelium, with scant benign squamous epithelium and very scant atrophic endometrium, insufficient for endometrial evaluation Last co testing in 06/22 was negative [facility] Medical History Frequency of urination Urinary incontinence in female YELITZA III (cervical intraepithelial neoplasia grade III) with severe dysplasia Asthma Surgical History History of endometrial ablation History of dilatation and curettage Hx of tubal ligation Social History Are you a primary health care consultant to a significant other at home: No Do you presently have visiting nurse or other home services: No Alcohol intake: current Alcohol intake frequency: a few times a month Alcohol type: beer and wine Patient Tobacco Use Status: Never used Tobacco Current occupational status: unemployed Female Reproductive History Menstrual Age of Menarche: 13 Review of Systems Const All systems reviewed & are unremarkable except as noted in HPI and below Reports as per HPI and Reports no additional complaints GI Reports no additional complaints Reports no additional complaints Assessment & Plan Assessment & Plan (1) Pelvic pain: Comment: 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 Discussed with the patient the options of treatment including expectant management versus hysterectomy; the pros and cons, risks benefits of each approach were discussed with the patient including the fact that in cases of myosarcoma, surgical treatment can lead to early diagnosis and positively affects the prognosis; will refer to [facility] for further management . All questions answered, the patient verbalized understanding and agreed with the plan . (2) Microscopic hematuria: Code(s): R31.29 - Other microscopic hematuria Category: Medical Plan: Repeat urine dip done today in the office was negative. The patient was reassured (3) Abnormal uterine bleeding: Comment: Status post NovaSure ablation Abnormal endometrium Insufficient endometrium on D&C pathology Code(s): N93.9 - Abnormal uterine and vaginal bleeding, unspecified Category: Medical Plan: Discussed with the patient the results of the pathology showing insufficient endometrium. Explained to the patient that endometrial pathology including endometrial hyperplasia and/or malignancy has not been ruled out because of scant endometrial tissues insufficient for diagnosis and intrauterine adhesions, Recommended referral to a tertiary care center where more resources are available, [facility] , for further management. The patient understands that endometrial pathology has not been ruled out. Will refer to [facility] OBG[facility] for further management. All questions answered verbalized understanding. Instructed the patient to call our office back in case a referral appointment is not scheduled, missed or canceled so that we will assist on rescheduling another appointment, the patient verbalized understanding agreed with the plan. Coding Level of Care Code Est Pt Level 3 (14703) Diagnoses Pelvic pain R10.2 Microscopic hematuria R31.29 Abnormal uterine bleeding N93.9
== END 2024-09-01 13:03 | disposition home or self-care (01) ==
LOC: HO.HWS 11:25
PROVIDERS: PCP Internal Medicine; Visit Provider Obstetrics & Gynecology
DX: R10.2 Pelvic and perineal pain (principal); R31.29 Other microscopic hematuria; N93.9 Abnormal uterine and vaginal bleeding, unspecified
CPT/HCPCS: 99213

== ENCOUNTER → 2024-09-01 11:25 | Outpatient (BNVA) | payer OTHER, SELFPAY | PROVIDERS: PCP Internal Medicine; Visit Provider Obstetrics & Gynecology | DX: R10.2 Pelvic and perineal pain (principal); R31.29 Other microscopic hematuria; N93.9 Abnormal uterine and vaginal bleeding, unspecified | CPT/HCPCS: 99212 ==

== ENCOUNTER 2024-09-15 09:50 | Outpatient (AMB) | payer OTHER, SELFPAY ==
--- NOTE | 2024-09-15 09:59 | A.OFFVIS_ITS ---
Vital Signs 09/15/24 10:13 Height 5 ft 4 in Weight 189 lb BMI 32.4 BP 130/82 Blood Pressure Location Rt brachial Position Sitting Pulse 78 Pulse Source Pulse Oximeter Pulse Oximetry (%) 98 Oxygen Delivery Method Room Air Intake Visit Reasons: Colonoscopy Screening Intake Note: NEW PATIENT for initial colo screening Chief Complaint; C/O possible active hemorrhoids w/ constipation, generalized abd pain pt believes is related to constipation, GERD w/o tx at this time. No additional concerns per pt. Pt reports she is having an urgent surgery in 4 days for pelvic pain per [facility]. Enforcement Officer Required: No Accompanied by: Self / Same As Patient Allergies seafood Allergy (Intermediate, Verified 09/15/24 09:59) Angioedema HPI HPI Colonoscopy Screening: Details: 48-year-old female with past medical of asthma, abnormal uterine bleeding, urinary frequency is here today for initial consultation. Patient was sent to us by her PCP for colonoscopy screening. This would be her 1st colonoscopy. Patient reports that she is going for procedure on Sunday with her OBGYN. Patient reports that she has been suffering with severe pelvic pain and discomfo rt. Patient also reports heavy menstrual bleeding and pain. Patient would like hold off on colonoscopy as she needs to figure out her procedure 1st. At this point patient reports that she has been very constipated. Reports straining and occasional rectal bleeding when pushing. Currently she is not taking any medications patient also reports acid reflux and occasional nausea. Patient reports also frequent abdominal bloating, feeling very gassy. Sometimes constipation for 3-4 days. [facility] Medical History Frequency of urination Urinary incontinence in female YELITZA III (cervical intraepithelial neoplasia grade III) with severe dysplasia Asthma Surgical History History of endometrial ablation History of dilatation and curettage Hx of tubal ligation Social History Are you a primary spiritual care coordinator to a significant other at home: No Do you presently have visiting nurse or other home services: No Alcohol intake: current Alcohol intake frequency: a few times a month Alcohol type: beer and wine Patient Tobacco Use Status: Never used Tobacco Current occupational status: unemployed Female Reproductive History Menstrual Age of Menarche: 13 Review of Systems Const Denies weight gain and Denies weight loss ENT Reports no additional complaints, Denies dysphagia and Denies odynophagia Card Reports no additional complaints Resp Reports no additional complaints GI Reports abdominal pain (LLQ), Denies belching, Denies melena, Denies bloating, Denies change in bowel habits, Reports constipation, Denies dysphagia, Denies excessive flatus, Denies dyspepsia, Reports heartburn, Denies diarrhea, Denies loose stools, Reports nausea, Denies odynophagia and Denies vomiting Reports no additional complaints Musc Reports no additional complaints Neuro Reports no additional complaints Psych Reports no additional complaints Endo Reports no additional complaints Physical Exam Vital Signs: Last Vital Signs Pulse 78 09/15/24 10:13 BP 130/82 09/15/24 10:13 Pulse Ox 98 09/15/24 10:13 Oxygen Delivery Method Room Air 09/15/24 10:13 BMI result Body Mass Index 32.4 Const General: healthy appearing and no acute distress Nutritional Appearance: obese Orientation/consciousness: patient oriented x3 Resp Effort & Inspection: normal respiratory effort, able to speak in complete sentences, no tracheal deviation and symmetric chest movement Auscultation: clear to auscultation bilaterally Cardio Rate: regular rate GI Inspection: Yes normal to inspection, No distended and Yes obesity Palpation (GI): Soft to palpation, not firm, nontender and No hepatosplenomegaly present Auscultation: normal bowel sounds General: Yes no CVA tenderness Back/Spine/Pelvis Back: no CVA tenderness Skin General skin exam: elasticity normal, turgor normal and dry skin Neuro General: patient oriented x3 Psych Appearance: grossly normal Mental Status: mental status grossly normal Assessment & Plan Assessment & Plan (1) Constipation: Code(s): K59.00 - Constipation, unspecified Qualifiers: Constipation type: slow transit constipation Qualified Code(s): K59.01 - Slow transit constipation (2) GERD (gastroesophageal reflux disease): Code(s): K21.9 - Gastro-esophageal reflux disease without esophagitis Qualifiers: Esophagitis presence: esophagitis presence not specified Qualified Code(s): K21.9 - Gastro-esophageal reflux disease without esophagitis (3) Postprandial abdominal bloating: Code(s): R14.0 - Abdominal distension (gaseous) (4) Rectal bleed: Code(s): K62.5 - Hemorrhage of anus and rectum Plan We will hold off on colonoscopy is patient is going for procedure this Sunday in my need to a surgery. Patient was encouraged to increase fluid intake and activity to promote better bowel motility. Patient will start taking senna daily. Will send her script for Proctosol. Patient reports hemorrhoids occasional blood on as stool and also occasional with wiping. Avoid straining. Script for Proctosol given to patient. Patient reports significant reflux, her will start her on take pantoprazole. Discussed with patient the importance of avoiding dietary triggers and late night snacking. Staying upright for minimal 3 hours after meals discussed with patient. Patient reports also abdominal bloating worse when constipated. Discussed with patient no FODMAP diet. List of with recommended as well as list of food to avoid given to patient. Patient will return in 3 months we can discuss going for colonoscopy, and we will send her for endoscopy as well due to her symptoms. Patient is agreeable to this plan and verbalizes understanding of instructions. She was given the opportunity to ask questions and all questions answered. Thank you for allowing me to participate in her care Medications: New hydrocortisone 2.5% (Proctosol HC) 1 appl [place] BID-QID PRN 30 grams 2RF hemorrhoids K64.9 - Unspecified hemorrhoids sennosides (Natural Senna Laxative) 17.2 mg (2 x 8.6 mg) PO BEDTIME 60 tabs 3RF constipation K59.00 - Constipation, unspecified pantoprazole take one tablet half an hour before breakfast 40 mg PO DAILY 30 tabs 2RF K21.9 - Gastro-esophageal reflux disease without esophagitis Coding Level of Care Code New Pt Level 4 (37780) Diagnoses Slow transit constipation K59.01 Constipation type: slow transit constipation Gastroesophageal reflux disease, unspecified whether esophagitis present K21.9 Esophagitis presence: esophagitis presence not specified Postprandial abdominal bloating R14.0 Rectal bleed K62.5 Time Spent (min) 45 Comment 35 minutes spent with patient and additional 10 minutes spent reviewing her records
[2024-09-15 10:13] VITALS: BP 130/82; PULSE 78; O2SAT 98; BMI 32.4
== END 2024-09-15 10:24 | disposition home or self-care (01) ==
LOC: HO.HGI 09:50
PROVIDERS: PCP Internal Medicine; Visit Provider Nurse Practitioner Family
DX: K59.01 Slow transit constipation (principal); K21.9 Gastro-esophageal reflux disease without esophagitis; R14.0 Abdominal distension (gaseous); K62.5 Hemorrhage of anus and rectum
CPT/HCPCS: 99204

== ENCOUNTER → 2024-09-15 09:50 | Outpatient (BNVA) | payer OTHER, SELFPAY | PROVIDERS: PCP Internal Medicine; Visit Provider Nurse Practitioner Family | DX: K59.01 Slow transit constipation (principal); K21.9 Gastro-esophageal reflux disease without esophagitis; K62.5 Hemorrhage of anus and rectum; R14.0 Abdominal distension (gaseous) | CPT/HCPCS: 99202 ==

== ENCOUNTER 2024-10-16 13:51 | Outpatient (REF) | payer OTHER, SELFPAY ==
[2024-10-16 14:10] LABS: MANUAL DIFF FLAG NO
[2024-10-16 14:26] LABS: Basophils Percent Auto 0.5 % (0-2); Eosinophils Absolute Auto 0.1 X10*3/uL (0.0-0.4); Eosinophils Percent Auto 1.2 % (0-4); Hematocrit 45.5 % (37.0-47.0); Hemoglobin 14.8 g/dl (12.0-16.0); Imm Gran Abs Auto 0.03 X10*3/uL (0.00-0.03); Imm Gran Pct Auto 0.4 % (0.0-0.4); Lymphocytes Absolute Auto 2.7 X10*3/uL (1.2-4.9); Lymphocytes Percent Auto 32.1 % (20-40); Mean Corpuscular HGB Conc 32.5 g/dl (31.0-35.0); Mean Corpuscular Hemoglobin 28.8 pg (27.0-33.0); Mean Corpuscular Volume 88.5 fL (80.0-98.0); Mean Platelet Volume 9.1 fL (9.4-12.3); Monocytes Absolute Auto 0.5 X10*3/uL (0.1-1.2); Monocytes Percent Auto 6.4 % (2-11); Neutrophils Absolute Auto 4.9 x10*3/uL (2.0-8.3); Neutrophils Percent Auto 59.4 % (45-73); Platelet Count 397 X10*3/uL (160-400); Red Blood Count 5.14 X10*6/uL (4.20-5.50); Red Cell Distribution Width 14.5 % (11.0-16.0); White Blood Count 8.3 X10*3/uL (4.8-10.8)
[2024-10-16 14:30] LABS: Appearance Urine Clear; Color Urine Yellow; Glucose Urine UA Negative (Negative); Leukocyte Esterase Urine Negative (Negative); Nitrite Urine Negative (Negative); Specific Gravity - Urine >= 1.030 (1.005-1.025); Urine Blood Negative (Negative); Urine Ketones Trace mg/dL (Negative); Urine Protein Negative (Neg-Trace)
[2024-10-16 14:59] LABS: Alanine Aminotransferase 36 U/L (0-31); Albumin Level 4.6 g/dL (3.5-5.0); Alkaline Phosphatase 84 U/L (39-117); Anion Gap 12 (12-20); Aspartate Amino Transferase 29 U/L (5-31); Bilirubin Total 0.2 mg/dL (0.0-1.0); Blood Urea Nitrogen 18 mg/dL (9-16); Calcium 10.3 mg/dL (8.4-10.2); Carbon Dioxide 23 mmol/L (22-29); Chloride 108 mmol/L (96-108); Cholesterol 225 mg/dL (<200); Estimated Glomerular Filt Rate > 60; Glucose Random 84 mg/dL (60-115); HDL Cholesterol 47 mg/dL (>40); LDL Cholesterol Calculated 155 mg/dL (<100); Sodium 139 mmol/L (135-145); Total Protein 8.4 g/dL (6.5-8.0); Triglycerides 115 mg/dL (<150)
[2024-10-16 15:13] LABS: Ferritin 106 ng/mL (10-250)
[2024-10-16 16:37] LABS: CT PCR NOT DETECTED (Not Detect.); NG PCR NOT DETECTED (Not Detect.)
== END 2024-10-16 13:52 | disposition home or self-care (01) ==
LOC: HO.LAB 13:51
PROVIDERS: PCP Internal Medicine; Visit Provider Internal Medicine
DX: E78.00 Pure hypercholesterolemia, unspecified (principal); N89.8 Other specified noninflammatory disorders of vagina; N93.8 Other specified abnormal uterine and vaginal bleeding; R35.0 Frequency of micturition
CPT/HCPCS: 80053; 80061; 81003; 82728; 85025; 87086; 87491; 87591

== ENCOUNTER 2024-11-04 13:00 | Outpatient (RCR) | payer OTHER, SELFPAY ==
--- NOTE | 2024-09-17 13:58 | MHC.PT.EP ---
[facility] [place] Office [place] Office [address] Mark Michel [address] [phone] F: [phone] F: [phone] F: [phone] F: [phone] Physical Therapy Plan of Care Date of Evaluation: 09/17/24 Date of Surgery: Diagnosis: other microscopic hematuria pelvic and perineal pain Assessment: 48 y/o female referred to PT with other microscopic hematuria; pelvic and perineal pain. Pt presents with LEESA, UUI, constipation, and L lower quadrant pain after ablation one year ago. She will be undergoing (?DNC) this Sunday. Examination shows decreased core/hip strength, poor breathing mechanics, breath-holding tendencies, poor abdominal control and bearing down. Pt provided consent for pelvic floor PT and will assess next visit. Recommend PT 1x/week for 10 weeks to address impairments, implement HEP, and optimize functional mobility Frequency and Duration: The patient will be seen 1x/week for 10 weeks Short Term Goals: 5 weeks 1. Pt to be able to correctly activate her PFM to allow improved support to bowel and bladder. 2. Pt to be able to demonstrate diaphragmatic breathing to improve pressure exchange and intra abdominal load management. 3. Pt to be educated on behavior training to help decrease urge incontinence. 4. Pt will be I with body mechanics and toileting technique to reduce pelvic pressure 5. I with ILU bowel massage for improved motility of colon Construction Field Engineer Goals: 10 weeks 1. Pt to be able to show improved PFM contraction during functional movements such as a bridge or squat to help prevent or limit POP. 2. Pt to reduce # of episodes of LEEAS during the day by 50% to help improve quality of life and reduce pad usage. 3. Pt to be independent with her final HEP for PFM in order to help maintain gains made in therapy. 4. Independent with PF contraction and concentric/eccentric control in all postures in 12 weeks Treatment Plan: Modalities to reduce pain, spasms and effusion. Manual therapy to restore motion and function. Therapeutic exercise to improve strength and flexibility. Neuromuscular re-education for posture and balance. Therapeutic activities to return to functional activities of daily living. Electronically signed by: Please sign and return to therapist. Thank you for your referral.
--- NOTE | 2024-12-29 07:50 | MHC.PT.DC ---
[facility] [place] Office [place] Office [place] Office [address] Mark Michel [address] [phone] F: [phone] F: [phone] F: [phone] F: [phone] Physical Therapy Discharge Report Diagnosis: other microscopic hematuria pelvic and perineal pain Date of Surgery: Date of Evaluation: 09/17/24 Date of Discharge: 12/29/24 Treatments to Date: 3 Cancellations to Date: 4 No Shows to Date: 1 Discharge Status: Improved Function Independent with HEP Visit Non-compliance Discharge Summary: Pt has had difficulty making PT appointments with 4 cancellations and 1 no show visit. However at time of last attended visit, pt reporting feeling much better with less urgency, constipation well managed, and feels stronger in pelvic floor with more awareness. She still has leakage with sneezing, however states smaller amounts. Electronically signed by: Soledad Renteria PT Please sign and return to therapist. Thank you for your referral.
== END 2024-12-29 07:50 | disposition home or self-care (01) ==
LOC: HO.PT 13:00
PROVIDERS: PCP Internal Medicine; Visit Provider Urology
DX: R10.2 Pelvic and perineal pain (principal); R31.29 Other microscopic hematuria
CPT/HCPCS: 97112; 97140; 97162; 97535

== ENCOUNTER 2024-12-23 09:02 | Outpatient (REF) | payer OTHER, SELFPAY ==
[2024-12-23 13:22] LABS: Bacterial Vaginosis PCR POSITIVE (Negative); Candida Group PCR NOT DETECTED (Not Detect); Candida glab krusei PCR NOT DETECTED (Not Detect); Trichomonas vaginalis PCR NOT DETECTED (Not Detect)
== END 2024-12-23 09:03 | disposition home or self-care (01) ==
LOC: HO.LAB 09:02
PROVIDERS: PCP Internal Medicine; Visit Provider Advanced Practice Midwife
DX: N89.8 Other specified noninflammatory disorders of vagina (principal); Z20.2 Contact with and (suspected) exposure to infections with a predominantly sexual mode of transmission; R30.0 Dysuria
CPT/HCPCS: 81003; 81515; 86704; 86780; 86803; 87389; 87491; 87591; 99212

== ENCOUNTER 2024-12-23 09:02 | Outpatient (AMB) | payer OTHER, SELFPAY ==
--- NOTE | 2024-12-23 09:31 | MHC.OFFVIS ---
Vital Signs 12/23/24 09:35 BP 124/86 Intake Visit Reasons: Vaginal Discharge Lead C Developer: Lead C Developer Present (Bernadette) Allergies seafood Allergy (Intermediate, Verified 12/23/24 09:33) Angioedema HPI Comments Details: Patient is here today with concerns that she has had a new partner, current antibiotic use and wants STD screening completed including bled work. She reports odor and discharge x 2 weeks prior to the onset for antibiotic. She denies any pelvic pain or dysuria. Admits to leakage of urine is wondering what she could do for this. Has seen Urology in the past. Also has a postop follow up with [facility]. [facility] Medical History Frequency of urination Urinary incontinence in female YELITZA III (cervical intraepithelial neoplasia grade III) with severe dysplasia Asthma Surgical History History of endometrial ablation History of dilatation and curettage Hx of tubal ligation Social History Are you a primary ambulatory care coordinator to a significant other at home: No Do you presently have visiting nurse or other home services: No Alcohol intake: current Alcohol intake frequency: a few times a month Alcohol type: beer and wine Patient Tobacco Use Status: Never used Tobacco Current occupational status: unemployed Female Reproductive History Menstrual Age of Menarche: 13 Review of Systems Const All systems reviewed & are unremarkable except as noted in HPI and below Physical Exam Vital Signs: Last Vital Signs BP 124/86 12/23/24 09:35 Const General: cooperative, healthy appearing and no acute distress Orientation/consciousness: patient oriented x3 GI Inspection: Yes normal to inspection Palpation (GI): Soft to palpation and Other GI palpation findings present (Nontender) Rectal Exam - Female: visual inspection normal Other: Tense with the exam. General: Yes bladder normal to palpation External Female Exam: normal appearance of the urethra Speculum Exam - Vagina: normal appearance of the vagina, normal palpation and normal vaginal discharge (Clear minimal discharge) Speculum Exam - Cervix: normal appearance of the cervix, normal palpation and Other cervical findings present (Post LEEP appearance) Bimanual exam- vagina & uterus: normal bimanual exam, normal palpation, uterine size normal, bladder normal to palpation, normal palpation, uterine shape normal and non-tender Bimanual Exam- Adnexa, other: normal adnexae Neuro General: patient oriented x3 Results AMB Urinalysis, Automated UA Leukoctes 0 Mychal/uL Last Edit by Lynn Kelley Marta on 12/23/24 09:43 UA Nitrite Negative Last Edit by Lynn Kelley [facility] on 12/23/24 09:43 UA Urobilinogen 0 mg/dL Last Edit by Lynn Kelley [facility] on 12/23/24 09:43 UA Protein 0 mg/dL Last Edit by Lynn Kelley [facility] on 12/23/24 09:43 UA pH 5.5 Last Edit by Lynn Kelley [facility] on 12/23/24 09:43 UA Blood 0 Marcellus/uL Last Edit by Lynn Kelley [facility] on 12/23/24 09:43 UA Specific [place] 1.025 Last Edit by Lynn Kelley Marta on 12/23/24 09:43 UA Ketone Negative Last Edit by Lynn Kelley [facility] on 12/23/24 09:43 UA Bilirubin 0 mg/dL Last Edit by Lynn Kelley [facility] on 12/23/24 09:43 UA Glucose 0 mg/dL Last Edit by Lynn Kelley [facility] on 12/23/24 09:43 Results Reviewed Results Reviewed: Laboratory Last Values Urine pH (Auto) 5.5 12/23/24 09:42 Specific [place] (Auto) 1.025 12/23/24 09:42 Urine Protein (Auto) 0 mg/dL 12/23/24 09:42 Glucose (UA)(Auto) 0 mg/dL 12/23/24 09:42 Urine Ketones (Auto) Negative 12/23/24 09:42 Urine Blood (Auto) 0 Marcellus/uL 12/23/24 09:42 Urine Nitrite (Auto) Negative 12/23/24 09:42 Urine Bilirubin (Auto) 0 mg/dL 12/23/24 09:42 Urine Urobilinogen (Auto) 0 mg/dL 12/23/24 09:42 Leukocyte Esterase (Auto) 0 Mychal/uL 12/23/24 09:42 Assessment & Plan Assessment & Plan (1) Vaginal odor: Code(s): N89.8 - Other specified noninflammatory disorders of vagina Plan: See notes below. (2) Possible exposure to STD: Code(s): Z20.2 - Contact with and (suspected) exposure to infections with a predominantly sexual mode of transmission Plan Plan GC chlamydia and BV panel. Blood work ordered. Await results for final plan of care. Information provided on pelvic floor exercises provided. The patient expressed understanding and agreement with the plan of care. All of her questions and concerns were addressed to the best of my ability. This note is constructed using voice recognition software. While every effort has been made to ensure accuracy, earthmoving plant operator errors may have been included. Orders: Orders AMB Urinalysis Automated Today R30.0 - Dysuria Hepatitis C Antibody Reflex Today Z20.2 - Contact with and (suspected) exposure to infections with a predominantly sexual mode of transmission HIV Ab/Ag Today Z20.2 - Contact with and (suspected) exposure to infections with a predominantly sexual mode of transmission Hepatitis B Core Antibody Today Z20.2 - Contact with and (suspected) exposure to infections with a predominantly sexual mode of transmission Syphilis Screen Today Z20.2 - Contact with and (suspected) exposure to infections with a predominantly sexual mode of transmission Bacterial Vaginosis Panel Today N89.8 - Other specified noninflammatory disorders of vagina CT NG by PCR Today N89.8 - Other specified noninflammatory disorders of vagina Coding Level of Care Code Est Pt Level 3 (96822) Diagnoses Vaginal odor N89.8 Possible exposure to STD Z20.2
[2024-12-23 09:35] VITALS: BP 124/86
== END 2024-12-23 10:10 | disposition home or self-care (01) ==
LOC: HO.HWS 09:02
PROVIDERS: PCP Internal Medicine; Visit Provider Advanced Practice Midwife
DX: N89.8 Other specified noninflammatory disorders of vagina (principal); Z20.2 Contact with and (suspected) exposure to infections with a predominantly sexual mode of transmission; R30.0 Dysuria
CPT/HCPCS: 99213

== ENCOUNTER 2024-12-23 09:57 | Outpatient (REF) | payer OTHER, SELFPAY ==
[2024-12-23 11:21] LABS: Syphilis Screen Nonreactive (Nonreactive)
[2024-12-23 11:22] LABS: HBc Num1 1.21 S/CO (0.00-0.79); HIV AB/AG Nonreactive (Nonreactive); HIV Num 1 0.06 S/CO (0.00-0.99); ~Hepatitis C Antibody Nonreactive (Nonreactive)
[2024-12-23 12:23] LABS: HBc Num2 0.08 S/CO; HBc Num3 0.08 S/CO; Hepatitis B Core Antibody Nonreactive (Nonreactive)
[2024-12-23 13:53] LABS: CT PCR NOT DETECTED (Not Detect.); NG PCR NOT DETECTED (Not Detect.)
== END 2024-12-23 09:58 | disposition home or self-care (01) ==
LOC: HO.LNP 09:57
PROVIDERS: Visit Provider Advanced Practice Midwife
DX: Z13.89 Encounter for screening for other disorder (principal)
CPT/HCPCS: 86704; 86780; 86803; 87389; 87491; 87591

== ENCOUNTER 2025-01-26 14:08 | Outpatient (AMB) | payer OTHER, SELFPAY ==
--- NOTE | 2025-01-26 14:14 | A.OFFVIS_ITS ---
Intake Visit Reasons: leakage Intake Note: Patient is present for leakage follow up Urology Med:None Antibiotic Allergy: None Blood Thinner:None Buckle Stapler Required: No Accompanied by: Self / Same As Patient Allergies seafood Allergy (Intermediate, Verified 01/26/25 14:15) Angioedema HPI Comments Details: 01/26/25--Eugenia is a 49-year-old female who has been followed for overactive bladder symptoms and prescribed VESIcare she is also on Vagifem. She has had recurrent UTIs and has been advised on low-dose antibiotic after intercourse. 08/07/24--Eugenia is a 48-year-old female who is here for Teleheath fu. She states that after intercourse she has burning. She states that she was treated with metronidazole for vaginal infection and is being followed by sap solution manager consultant. She states that the VESIcare is working well for her bladder spasms. Cont low-dose antibiotic after intercourse, Vagifem therapy, continue VESIcare. 05/08/24--3 month FU on vesicare. Eugenia is a 48-year-old female who is here for follow-up. She states that she thinks she has another UTI because she has burning when she urinates. She states that after intercourse she also has burning. She states that she was treated with metronidazole for vaginal infection recently. She has follow-up today with her sap solution manager consultant. I have discussed urinalysis today is negative but we will send it for surveillance culture. I have discussed use of vaginal estrogen therapy. Benefits include maintaining normal pH balance and supporting vaginal mucosa. She states that the VESIcare is working well for her bladder spasms. Plan low-dose antibiotic after intercourse, Vagifem therapy, continue VESIcare, urine culture surveillance. Will check in with her in 12 weeks to re-evaluate symptoms. 02/07/24--Eugenia is here for office cystoscopy. Cystoscopy findings: no suspicious bladder lesions. Vesicare 10 mg qhs for oab symptoms. 12/21/23--Eugenia is a 48-year-old female who states that for the last 6 months she has been noticing worsening urinary leakage. She states that she had a UTI about 2 months ago she was treated with antibiotics. She has a history of 5 vaginal pregnancies her last baby was about 9 lb. She states that she leaks with laughing and feels that she is going more frequently with a strong urge to urinate. Nocturia times 1-2. Urinalysis negative blood. Bladder scan PVR 0 mL Will send surveillance urine culture. I have discussed a trial of an anticholinergic, VESIcare 10 mg at bedtime. I will refer her to pelvic floor physical therapy. We will check a renal bladder ultrasound and follow-up office cystoscopy, pelvic exam at that time. [facility] Medical History Frequency of urination Urinary incontinence in female YELITZA III (cervical intraepithelial neoplasia grade III) with severe dysplasia Asthma Surgical History History of endometrial ablation History of dilatation and curettage Hx of tubal ligation Social History Are you a primary home care coordinator to a significant other at home: No Do you presently have visiting nurse or other home services: No Alcohol intake: current Alcohol intake frequency: a few times a month Alcohol type: beer and wine Patient Tobacco Use Status: Never used Tobacco Current occupational status: unemployed Female Reproductive History Menstrual Age of Menarche: 13 Results AMB Urinalysis, Automated UA Leukoctes 0 Mychal/uL Last Edit by Mikaela Jara on 01/26/25 16:35 UA Nitrite Negative Last Edit by Mikaela Jara on 01/26/25 16:35 UA Urobilinogen 3.5 mg/dL Last Edit by Mikaela Jara on 01/26/25 16:35 UA Protein 0 mg/dL Last Edit by Mikaela Jara on 01/26/25 16:35 UA pH 5.0 Last Edit by Mikaela Jara on 01/26/25 16:35 UA Blood 0 Marcellus/uL Last Edit by Mikaela Jara on 01/26/25 16:35 UA Specific [place] 1.025 Last Edit by Mikaela Jara on 01/26/25 16:35 UA Ketone Negative Last Edit by Mikaeal Jara on 01/26/25 16:35 UA Bilirubin 0 mg/dL Last Edit by Mikaela Jara on 01/26/25 16:35 UA Glucose 0 mg/dL Last Edit by Mikaela Jara on 01/26/25 16:35 Assessment & Plan Assessment & Plan Orders: Orders PT Evaluation and Treatment Today N39.3 - Stress incontinence (female) (male) AMB Urinalysis Automated Today Z13.9 - Encounter for screening, unspecified Medications: New Bifidobacterium longum (Align (B.longum)) one capsile orally daily; 30 caps 5RF Coding
== END 2025-01-26 16:18 | disposition home or self-care (01) ==
LOC: HO.HUSH 14:09
PROVIDERS: PCP Internal Medicine; Visit Provider Urology
DX: Z13.9 Encounter for screening, unspecified (principal)

== ENCOUNTER → 2025-01-26 14:08 | Outpatient (BNVA) | payer OTHER, SELFPAY | PROVIDERS: PCP Internal Medicine; Visit Provider Urology | DX: N39.3 Stress incontinence (female) (male) (principal) | CPT/HCPCS: 81003 ==

== ENCOUNTER 2025-01-30 10:02 | Outpatient (REF) | payer OTHER, SELFPAY ==
[2025-01-30 11:33] LABS: Alanine Aminotransferase 45 U/L (0-31); Albumin Level 4.5 g/dL (3.5-5.0); Alkaline Phosphatase 90 U/L (39-117); Anion Gap 9 (12-20); Aspartate Amino Transferase 33 U/L (5-31); Blood Urea Nitrogen 14 mg/dL (9-16); Calcium 9.0 mg/dL (8.4-10.2); Carbon Dioxide 26 mmol/L (22-29); Chloride 109 mmol/L (96-108); Cholesterol 136 mg/dL (<200); Estimated Glomerular Filt Rate > 60; HDL Cholesterol 47 mg/dL (>40); Potassium 4.2 mmol/L (3.3-5.1); Sodium 140 mmol/L (135-145); Total Protein 7.6 g/dL (6.5-8.0); Triglycerides 97 mg/dL (<150)
== END 2025-01-30 10:03 | disposition home or self-care (01) ==
LOC: HO.LAB 10:02
PROVIDERS: PCP Internal Medicine; Visit Provider Internal Medicine
DX: I10 Essential (primary) hypertension (principal); E78.00 Pure hypercholesterolemia, unspecified; M51.16 Intervertebral disc disorders with radiculopathy, lumbar region; M54.2 Cervicalgia; R11.0 Nausea
CPT/HCPCS: 36415; 80053; 80061

== ENCOUNTER 2025-04-30 09:43 | Day surgery (SDC) | payer OTHER, SELFPAY ==
--- NOTE | 2025-04-28 09:17 | HO.ANESPROP2 ---
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 (Acute) Bacterial vaginosis (Acute) YELITZA III (cervical intraepithelial neoplasia grade III) with severe dysplasia (Acute) Abnormal uterine bleeding (Acute) COVID-19 (Acute) Frequency of urination (Acute) Urinary incontinence in female (Acute) Past Medical History Medical History (Updated 03/17/25 @ 13:55 by Nancy Sandoval MD) Frequency of urination Urinary incontinence in female YELITZA III (cervical intraepithelial neoplasia grade III) with severe dysplasia Asthma Surgical History Surgical History (Updated 04/28/25 @ 12:37 by Livier Morgan RN) History of hysteroscopy (09/19/24) History of endometrial ablation History of dilatation and curettage Hx of tubal ligation History of Problems with Anesthesia: No Social History Social History Are you a primary chronic care nurse to a significant other at home: No Do you presently have visiting nurse or other home services: No Alcohol intake: current Alcohol intake frequency: a few times a month Alcohol type: beer and wine Patient Tobacco Use Status: Never used Tobacco Use of substances other than those prescribed or required for medical reasons: No Have you been hit, kicked, punched, or otherwise hurt by someone within the past year? If so, by whom?: No Are you DNR?: No Advance Directives: No Advance Directives Information Provided: Yes Advance Directives on File: No Patient : No FDLMP: 12/2024 : No Current occupational status: unemployed Meds Allergies Allergy/AdvReac Type Severity Reaction Status Date / Time seafood Allergy Intermediate Angioedema Verified 01/26/25 14:15 Home Medications ?Medication ?Instructions ?Recorded ?Confirmed ?Last Taken ?Type albuterol sulfate 90 mcg/actuation 1 puff inhalation Q4H PRN Wheezing 05/29/20 04/28/25 Unknown History aerosol inhaler fluticasone furoate 200 1 inh inhalation DAILY 05/22/24 05/22/24 Unknown History mcg/actuation blister powder for inhalation (Arnuity Ellipta) fluticasone propionate 50 1 spray intranasal DAILY 05/22/24 04/28/25 Unknown History mcg/actuation nasal spray,suspension gabapentin 100 mg capsule 100 mg PO BEDTIME 05/22/24 04/28/25 Unknown History loratadine 10 mg tablet (Claritin) 10 mg PO DAILY 05/22/24 04/28/25 Unknown History melatonin 3 mg tablet 3 mg PO QPM 05/22/24 04/28/25 Unknown History montelukast 10 mg tablet 10 mg PO BEDTIME 05/22/24 04/28/25 Unknown History duloxetine 60 mg capsule,delayed 60 mg PO DAILY 09/15/24 04/28/25 Unknown History release norethindrone acetate 5 mg tablet 5 mg PO DAILY 09/15/24 04/28/25 Unknown History trazodone 50 mg tablet 50 mg PO BEDTIME 09/15/24 04/28/25 Unknown History rosuvastatin 10 mg tablet 10 mg PO DAILY 04/28/25 04/28/25 Unknown History Assessment and Plan Final Anesthetic Review History of Problems with Anesthesia: No Documented by User: Zofia Mccullough MD 04/30/25 12:04 [facility] Past Medical History Medical History (Updated 03/17/25 @ 13:55 by Nancy Sandoval MD) Frequency of urination Urinary incontinence in female YELITZA III (cervical intraepithelial neoplasia grade III) with severe dysplasia Asthma Family History Family history of problems with anesthesia: No Surgical History Surgical History (Updated 04/28/25 @ 12:37 by Livier Morgan RN) History of hysteroscopy (09/19/24) History of endometrial ablation History of dilatation and curettage Hx of tubal ligation Social History Social History Are you a primary chronic care nurse to a significant other at home: No Do you presently have visiting nurse or other home services: No Alcohol intake: current Alcohol intake frequency: a few times a month Alcohol type: beer and wine Patient Tobacco Use Status: Never used Tobacco Use of substances other than those prescribed or required for medical reasons: No Have you been hit, kicked, punched, or otherwise hurt by someone within the past year? If so, by whom?: No Are you DNR?: No Advance Directives: No Advance Directives Information Provided: Yes Advance Directives on File: No Patient : No FDLMP: 12/2024 : No Current occupational status: unemployed Meds Allergies Allergy/AdvReac Type Severity Reaction Status Date / Time seafood Allergy Intermediate Angioedema Verified 01/26/25 14:15 Home Medications ?Medication ?Instructions ?Recorded ?Confirmed ?Last Taken ?Type albuterol sulfate 90 mcg/actuation 1 puff inhalation Q4H PRN Wheezing 05/29/20 04/28/25 Unknown History aerosol inhaler fluticasone furoate 200 1 inh inhalation DAILY 05/22/24 05/22/24 Unknown History mcg/actuation blister powder for inhalation (Arnuity Ellipta) fluticasone propionate 50 1 spray intranasal DAILY 05/22/24 04/28/25 Unknown History mcg/actuation nasal spray,suspension gabapentin 100 mg capsule 100 mg PO BEDTIME 05/22/24 04/28/25 Unknown History loratadine 10 mg tablet (Claritin) 10 mg PO DAILY 05/22/24 04/28/25 Unknown History melatonin 3 mg tablet 3 mg PO QPM 05/22/24 04/28/25 Unknown History montelukast 10 mg tablet 10 mg PO BEDTIME 05/22/24 04/28/25 Unknown History duloxetine 60 mg capsule,delayed 60 mg PO DAILY 09/15/24 04/28/25 Unknown History release norethindrone acetate 5 mg tablet 5 mg PO DAILY 09/15/24 04/28/25 Unknown History trazodone 50 mg tablet 50 mg PO BEDTIME 09/15/24 04/28/25 Unknown History rosuvastatin 10 mg tablet 10 mg PO DAILY 04/28/25 04/28/25 Unknown History Exam Airway Mallampati Class: II TM Dist: >3cm Neck ROM: Full Heart: rrr Lungs: cta Assessment and Plan Assessment Anesthesia Assessment: Anesthesia Plan Discussed and Chart Reviewed Final Anesthetic Review Family History of Problems with Anesthesia: No NPO: Yes ASA Class: II Final Preanesthetic Review: No Changes in Pt Med Stat, Meds/Allgs Chart Reviewed and Consent Obtained/Reviewed Patient Risk: Low Procedure Risk: Low Anesthetic Plan Anesthetic Plan: MAC: Disposition: Standard PACU
[2025-04-28 12:38] VITALS: BMI 36.7
[2025-04-28 13:30] VITALS: BMI 35.9
[2025-04-30 11:55] VITALS: BP 148/79; PULSE 70; RESP 16; TEMP 36.4; O2SAT 100
[2025-04-30] MEDS: Lactated Ringers 1,000 ML 100 ML IVCONT (12:15)
--- NOTE | 2025-04-30 12:52 | P.HPSUR_ITS ---
Pre-Procedural Eval Section A - 24 Hr Update-Section A only Date of Service: 04/30/25 Section B - Complete if H&P > 30 days Chief Complaint: Constipation, unspecified Details of Present Illness: Frequency of urination Urinary incontinence in female YELITZA III (cervical intraepithelial neoplasia grade III) with severe dysplasia Asthma Surgical History History of endometrial ablation History of dilatation and curettage Hx of tubal ligation Present Medications: see Short Stay Collaborative assessment Allergies: Allergies Allergy/AdvReac Type Severity Reaction Status Date / Time seafood Allergy Intermediate Angioedema Verified 01/26/25 14:15 Review of Systems Review of Systems Comment: Ten point ROS negative Exam Exam Comment: Gen appear: No acute distress HEENT: no icterus Chest: No overt resp distress Abd: soft, nontender, nondistended Psych: Stable affect, answering questions appropriately Neuro: A/Ox3 noted to move all extremities spontaneously Ext: no peripheral edema Plan Diagnosis/Plan: Unchanged I have reviewed the history and physical and performed a pertinent physical examination on my patient. No changes have occurred unless specified. Time Spent With Patient Time: Total time managing care of this patient today ____ minutes.
--- NOTE | 2025-04-30 13:15 | HO.OPN-COLON ---
Colonoscopy Operative Note Operative Note Date of Service: 04/30/25 Narrative: Procedure: Colonoscopy Indication: Screening Endoscopist: Huong Landa MD Anesthesia Provider: Roula Linton CRNA Anesthesia type: MAC Instrument: Olympus [id number]-H190L Consent: Indication, risks vs benefits, and alternatives were discussed with the patient who gave written informed consent to proceed. EKG, pulse, pulse oximetry and blood pressure were monitored throughout the procedure. Please see anesthesia flowsheet. Procedure: An abdominal binder was affixed to the lower abdomen. The patient was brought to the procedure room and placed in the left lateral decubitus position. IV medications were administered by the anesthesia provider in attendance. A digital rectal exam was performed which was normal. A distal attachment cap was affixed to the tip of the colonoscope which was then inserted through the anus and advanced through the colon to the descending colon. Large amount of solid stool was encountered obscuring the view of the entire lumen. Scope could not be advanced beyond this point. The procedure was therefore terminated. Scope was withdrawn. No immediate complications. Impression: 1. Poor prep. Recommendations: - repeat colonoscopy to be scheduled within 6 months. - recommend review of CLD only the day before (pt had salad yest) + 2 days of bisacodyl 10 mg BID to aid in adequate prep.
[2025-04-30 13:40] VITALS: BP 117/70; PULSE 67; RESP 16; TEMP 37.5; O2SAT 97
[2025-04-30 13:55] VITALS: BP 118/74; PULSE 63; RESP 16; TEMP 37.5; O2SAT 97
== END 2025-04-30 15:00 | disposition home or self-care (01) ==
PROVIDERS: PCP Internal Medicine; Visit Provider Internal Medicine
PROC: 0DJD8ZZ Inspection of Lower Intestinal Tract, Via Natural or Artificial Opening Endoscopic (ICD-10-PCS; CPT 45378; principal; 2025-04-30 13:20)
DX: Z12.11 Encounter for screening for malignant neoplasm of colon (principal); K59.00 Constipation, unspecified; R14.0 Abdominal distension (gaseous); K62.5 Hemorrhage of anus and rectum; Z53.8 Procedure and treatment not carried out for other reasons
CPT/HCPCS: 45330; J2250; J2704

== ENCOUNTER → 2025-04-30 09:43 | Outpatient (BNV) | payer OTHER, SELFPAY | PROVIDERS: PCP Internal Medicine; Visit Provider Internal Medicine | DX: Z12.11 Encounter for screening for malignant neoplasm of colon (principal); Z91.199 Patient's noncompliance with other medical treatment and regimen due to unspecified reason | CPT/HCPCS: 45330 ==